=== PATIENT | female | born 1950 | race Caucasian/White ===

== ENCOUNTER 2016-08-04 10:11 | Emergency (ER) | payer MEDICARE, OTHER ==
[~2016-08-04 10:11] MED LIST: ACET-704 PO; ALBU1.25 NEB; ALBU2.5V14 NEB; ALBU6.7H IH; ALBU8.5H8 IH; ALPR0.5T PO; ASPI-612 PO; ASPI81TA44 PO; ATOR10TA PO; AZIT500T PO; AZIT500T2 PO; BENZ100C PO; BUTA1CAP29 PO; CEFP200T PO; CYCL-331 PO; DOCU-109 PO; EPIN0.3A8 IJ; FENT1PAT15 TD; FENT1PAT17 TD; FERR15DR4 PO; FLUC100T7 PO; FLUT1DIS IH; FURO-69 PO; FURO20TA3 PO; GABA-585 PO; GUAI600T28 PO; HYDR-2766 PO; HYDR-971 PO; IBUP800T19 PO; IPRA3AMP NEB; IPRA3AMP23 IH; IPRA4AER IH; IPRA4AER INH; LEVO750T5 PO; LINA145C PO; LISI-338 PO; LISI2.5T PO; LORA10TA68 PO; LOSA25TA PO; LURA40TA PO; LURA80TA PO; METO25TA2 PO; METO25TA4 PO; METO25TA9 PO; MONT10TA6 PO; MORP15TA PO; MORP15TA3 PO; NITR0.4T22 SL; NYST15PO9 TP; OLOP5DRO EACHEYE; OLOP5DRO OP; ONDA4TAB10 PO; OXYC-328 PO; OXYC30TA PO; PNV1TABL25 PO; PNV91TAB3 PO; POLY17PO5 PO; PRAZ2CAP2 PO; PRED20TA PO; PSYL1PAC7 PO; RISP1TAB43 PO; RIVA20TA2 PO; TOPI15CA4 PO; TRAM50TA PO; TRAZ150T49 PO; TRAZ50TA15 PO; TRIA10.8 NS; TRIA16.5 NS; VENL150C6 PO; VENL37.5 PO; VENL75CA6 PO; VENL75TA PO; VILA10TA PO; VILA20TA PO; WARF5TAB7 PO; XOPENEX1.25 MG/3 IH; ZOLP10TA PO; [UNRECOGNIZED DRUG - OTHER] INH; duoneb
[2016-08-04] MEDS ORDERED: DIAZ5TAB PO (10:57)
--- NOTE | 2016-08-04 11:07 | ED.ADGEN ---
Past History Past Medical History: Other Past Surgical History: Gastric Bypass Smoking: Non-smoker Alcohol Use: None Drug Use: None Adult General HPI HPI Patient is a 66-year-old woman, with history of chronic low back pain after an injury several years ago, who presents to the emergency department with a complaint of worsening pain in her lower back, radiating into her right leg. Patient states that symptoms are consistent with previous exacerbations of her chronic low back pain. She denies any weakness, numbness or tingling, any new injuries, any fevers or chills, any GI or complaints. No chest pain or shortness breath, no headache. Patient states that she was seen by her primary care provider last week as the pain isn't getting worse, she believes it is exacerbated by prolonged time spent recently in an uncomfortable hospital chair , while she was spending time with both her daughter's fianc and her daughter in the hospital, as her daughter recently delivered a child, and her daughter's fianc was being treated separately. Review of Systems Review of Systems Constitutional: Denies fever or chills [] Eyes: Denies change in visual acuity, redness, or eye pain [] HENT: Denies nasal congestion or sore throat [] Respiratory: Denies cough or shortness of breath [] Cardiovascular: No additional information not addressed in HPI [] GI: Denies abdominal pain, nausea, vomiting, bloody stools or diarrhea [] : Denies dysuria or hematuria [] Musculoskeletal: Low back pain, worse on the right side, radiating into the right lower extremity. Integument: Denies rash or skin lesions [] Neurologic: Denies headache, focal weakness or sensory changes [] Endocrine: Denies polyuria or polydipsia [] Current Medications Current Medications Current Medications Medications (Trade) Dose Ordered Sig/Lary Start Time Stop Time Status Last Admin Dose Admin Ciprofloxacin (Cipro) 500 mg 1X ONCE 08/04/16 11:45 08/04/16 11:46 Diazepam (Valium) 5 mg 1X ONCE 08/04/16 11:45 08/04/16 11:46 Allergies Allergies Allergies Coded Allergies Type Severity Reaction Last Updated Verified amoxicillin Allergy Severe Anaphylaxis 07/25/15 No bee venom (honey bee) Allergy Severe Shortness of Air 07/25/15 Yes tree nut Allergy Intermediate SLOVAK WALNUTS 5/18/16 Yes I S O L A T I O N *CONTACT* Allergy Unknown 08/30/15 Yes Physical Exam Physical Exam Constitutional: Well developed, well nourished, no acute distress, non-toxic appearance. [] HENT: Normocephalic, atraumatic, bilateral external ears normal, oropharynx moist, no oral exudates, nose normal. [] Eyes: PERRLA, EOMI, conjunctiva normal, no discharge. [] Neck: Normal range of motion, no tenderness, supple, no stridor. [] Cardiovascular:Heart rate regular rhythm, no murmur , S1, S2, rubs or gallops. [ ] Lungs & Thorax: Bilateral breath sounds clear to auscultation, no wheezing, rhonchi, rales. No chest tenderness or crepitus. [] Abdomen: Bowel sounds normal, soft, obese, no rebound, rigidity, no guarding, no tenderness, no masses, no pulsatile masses. [] Skin: Warm, dry, no erythema, no rash. [] Back: Patient with mild midline tenderness in the lumbar region, no step-offs or deformities appreciated, no signs of trauma, patient with significant tissue tension and muscle spasm noted in the right lumbar paraspinal muscles, no external lesions or other abnormalities identified, no CVA tenderness. [] Extremities: No tenderness, no cyanosis, no clubbing, ROM intact, no edema. [] Neurologic: Alert and oriented X 3, normal motor function, normal sensory function, no focal deficits noted. [] Psychologic: Affect normal, judgement normal, mood normal. [] Current Patient Data Vital Signs Vital Signs Date Time Temp Pulse Resp B/P (MAP) Pulse Ox O2 Delivery O2 Flow Rate FiO2 08/04/16 10:20 98.5 63 20 96 Room Air Lab Results Laboratory Tests Test 08/04/16 11:05 Urine Collection Type Unknown Urine Color Yellow Urine Clarity Hazy Urine pH 5.5 Urine Specific Cropsey 1.025 Urine Protein Neg (NEG-TRACE) Urine Glucose (UA) Neg mg/dL (NEG) Urine Ketones (Stick) Neg mg/dL (NEG) Urine Blood Neg (NEG) Urine Nitrite Neg (NEG) Urine Bilirubin Neg (NEG) Urine Urobilinogen Dipstick 0.2 mg/dL (0.2 mg/dL) Urine Leukocyte Esterase Small (NEG) Urine RBC 1-2 /HPF (0-2) Urine WBC >40 /HPF (0-4) Urine Squamous Epithelial Cells Few /LPF Urine Bacteria Mod /HPF (0-FEW) Urine Hyaline Casts Occ /HPF Urine Mucus Slight /LPF EKG EKG Not indicated. [] Radiology/Procedures Radiology/Procedures Not indicated. [] Course & Med Decision Making Course & Med Decision Making Pertinent Labs and Imaging studies reviewed. (See chart for details) Patient ambulating without difficulty, although complaining of pain in her right extremity, positive straight leg raise test in the emergency department, examination is consistent with paraspinal lumbar muscle spasm, with mild sciatica. No indications for imaging at this time, as patient has had no injuries, she did have an MRI performed on Thursday of last week. She will follow -up with her primary care provider tomorrow. Has been using naproxen, cyclobenzaprine, tramadol and Tylenol at home as prescribed by her primary care provider without pain relief. I did discuss use of Valium, offering patient is an IM injection or oral medication, as she states this is helped previously with similar symptoms, however the patient states she did drive here today, and does not have anyone who can pick her up. Discussed with patient, we'll be happy to write her prescription for Valium, 5 mg to be taken up to once every 8 hours for muscle spasm, as there are pharmacies are open today even though it is a holiday. Patient is agreeable with this plan. Urine results revealed greater than 40 WBCs, moderate bacteria, and a few epithelial cells. No nitrates. I discussed these findings with patient, while she initially denied urinary complaints, she states that she has just begun to notice a foul odor in her urine, and was treated about a month ago for urinary tract infection for similar presentation. After discussion of patient's history , and allergies, and review previous culture results, we'll treat with ciprofloxacin 500 mg twice a day for 3 days, patient is a poor to follow-up with her doctor tomorrow, and will be contacted if culture results require additional follow-up or if antibiotics can be discontinued. Patient is agreeable this plan. Additionally, she has stated that her daughter was picking her up from the emergency department, therefore she was ordered an IM injection of 5 mg of Valium, along with prescription as stated. Final Impression Final Impression [] Problems: Dragon Disclaimer Dragon Disclaimer This electronic medical record was generated, in whole or in part, using a voice recognition dictation system. Departure: Impression: Primary Impression: Chronic back pain Additional Impression: Urinary tract infection Disposition: 01 HOME, SELF-CARE Condition: IMPROVED Scripts Ciprofloxacin Hcl (CIPRO) 500 Mg Tablet 1 TAB PO BID, #5 TAB One tablet by mouth twice daily for 3 days to treat urinary tract infection. First dose given in the emergency department. Prov: CASSIA GUAN DO 08/04/16 Diazepam (VALIUM) 5 Mg Tablet 5 MG PO TID Y for MUSCLE SPASMS, #9 TAB One tablet by mouth up to once every 8 hours as needed for muscle spasm and pain. Caution with use of this medication as it may cause drowsiness. No driving or operating machinery while taking diazepam. Prov: CASSIA GUAN DO 08/04/16 CASSIA GUAN DO August 04, 2016 11:07
[2016-08-04 11:23] LABS: BILIRUBIN,URINE NEG (NEG); CLARITY,URINE HAZY; COLOR,URINE YELLOW; GLUCOSE,URINE NEG (NEG)
[2016-08-04 11:24] LABS: BACTERIA,URINE MOD /HPF (0-FEW); HYALINE CASTS, URINE OCC /HPF; NITRITE,URINE NEG (NEG); SQUAMOUS EPITHELIAL CELL,UR FEW /LPF; UROBILINOGEN,URINE 0.2 mg/dL (0.2 mg/dL); WBC,URINE >40 /HPF (0-4)
[2016-08-04] MEDS ORDERED: CIPR500T94 PO (11:35)
[2016-08-04] MEDS ORDERED: CIPROFLOXACIN HCL 500 MG TABLET PO ONE (11:45)
[2016-08-04 12:25] VITALS: BP 136/82
== END 2016-08-04 12:30 | disposition home or self-care (01) ==
LOC: ER 10:11
DX: G89.29 Other chronic pain (principal); M54.5 Low back pain; N39.0 Urinary tract infection, site not specified; Z88.1 Allergy status to other antibiotic agents; Z91.030 Bee allergy status; Z91.041 Radiographic dye allergy status; Z91.018 Allergy to other foods; Z98.84 Bariatric surgery status
CPT/HCPCS: 81001; 87086; 96372; 99284-25

== ENCOUNTER → 2016-08-22 | Outpatient (CLI) | payer MEDICARE, OTHER ==
[2016-08-04 12:25] VITALS: BP 136/82
[~2016-08-22] MED LIST changes: +CIPR500T94 PO; +DIAZ5TAB PO
[2016-08-22 10:25] LABS: ALBUMIN 3.4 g/dL (3.4-5.0); ALBUMIN/GLOBULIN RATIO 0.9 (1.0-1.7); CALCIUM 8.8 mg/dL (8.5-10.1); CREATININE 0.8 mg/dL (0.6-1.0); GFR 71.3; POTASSIUM 4.7 mmol/L (3.5-5.1); TOTAL BILIRUBIN 0.5 mg/dL (0.2-1.0)
== END | disposition home or self-care (01) ==
LOC: LAB 09:06
PROVIDERS: ATTEND Nurse Practitioner
DX: E78.5 Hyperlipidemia, unspecified (principal)
CPT/HCPCS: 36415; 80053; 80061

== ENCOUNTER → 2016-08-26 | Outpatient (CLI) | payer MEDICARE, OTHER ==
[2016-08-04 12:25] VITALS: BP 136/82
--- NOTE | 2016-08-26 09:20 | RAD ---
DATE: 08/26/2016 EXAM: MAMMO BRI SCREENING BILATERAL HISTORY: Routine screening COMPARISON: 08/21/2015 This study was interpreted with the benefit of Computerized Aided Detection (CAD). FINDINGS: Breast Density: SCATTERED The breast parenchyma shows scattered fibroglandular densities. Breast parenchyma level B. There are no dominant suspicious masses, suspicious microcalcifications or evidence of architectural distortion. Benign-appearing calcification is identified in the bilateral breasts. Bilateral breast nodules similar to prior exam probably intramammary lymph nodes or cysts. IMPRESSION: Benign findings BI-RADS CATEGORY: 2 BENIGN FINDING RECOMMENDED FOLLOW-UP: 12M 12 MONTH FOLLOW-UP PQRS compliance statement: Patient information was entered into a reminder system with a target due date 08/26/2017 for the next mammogram. Mammography is a sensitive method for finding small breast cancers, but it does not detect them all and is not a substitute for careful clinical examination. A negative mammogram does not negate a clinically suspicious finding and should not result in delay in biopsying a clinically suspicious abnormality. "Our facility is accredited by the [employer] Mammography Program."
== END | disposition home or self-care (01) ==
LOC: MAMMO 07:50
PROVIDERS: ATTEND Family Medicine
DX: Z12.31 Encounter for screening mammogram for malignant neoplasm of breast (principal)
CPT/HCPCS: 77063; G0202; 77067

== ENCOUNTER → 2016-10-23 | Outpatient (CLI) | payer MEDICARE, OTHER ==
[~2016-10-23] MED LIST changes: -GUAI600T28 PO; +GUAI600T79 PO
[2016-10-23 09:32] LABS: CALCIUM 8.5 mg/dL (8.5-10.1); CREATININE 0.7 mg/dL (0.6-1.0); GFR 83.2; MAGNESIUM 1.9 mg/dL (1.8-2.4); POTASSIUM 4.6 mmol/L (3.5-5.1)
== END | disposition home or self-care (01) ==
LOC: LAB 08:33
PROVIDERS: ATTEND Nurse Practitioner
DX: R00.2 Palpitations (principal)
CPT/HCPCS: 36415; 80048; 83735; 84443

== ENCOUNTER → 2017-04-30 | Outpatient (CLI) | payer MEDICARE, OTHER ==
[~2017-04-30] MED LIST changes: +METO-239 PO; -METO25TA9 PO; +WARF-31 PO; -WARF5TAB7 PO
[2017-04-30 09:34] LABS: ALBUMIN 3.1 g/dL (3.4-5.0); CALCIUM 8.4 mg/dL (8.5-10.1); CREATININE 0.6 mg/dL (0.6-1.0); GFR 99.1; POTASSIUM 3.7 mmol/L (3.5-5.1); TOTAL BILIRUBIN 0.4 mg/dL (0.2-1.0); TOTAL PROTEIN 6.2 g/dL (6.4-8.2)
== END | disposition home or self-care (01) ==
LOC: LAB 07:50
PROVIDERS: ATTEND Nurse Practitioner
DX: I11.0 Hypertensive heart disease with heart failure (principal); I50.32 Chronic diastolic (congestive) heart failure; E78.5 Hyperlipidemia, unspecified
CPT/HCPCS: 36415; 80053; 80061; 83880

== ENCOUNTER 2018-07-04 10:56 | Emergency (ER) | payer MEDICARE, OTHER ==
[~2018-07-04] VITALS: Ht 160 cm; Wt 94.1 kg
[~2018-07-04 10:56] MED LIST changes: +ALBU2.5V8 IH; -ALBU6.7H IH; -ALBU8.5H8 IH; -ASPI81TA44 PO; +ASPI81TA59 PO; +FERR15DR20 PO; -FERR15DR4 PO; -HYDR-2766 PO; +HYDR-2769 PO; +HYDR-3165 PO; -HYDR-971 PO; -IPRA3AMP NEB; +IPRA3AMP29 NEB; -OXYC-328 PO; +OXYC1TAB22 PO; +TRAZ-120 PO; -TRAZ50TA15 PO
[2018-07-04 11:15] VITALS: BP 156/80
--- NOTE | 2018-07-04 11:25 | PHYS DOC ---
Past History Past Medical History: Asthma, COPD, Diabetes, Hypertension, Other Past Surgical History: Gastric Bypass Additional Past Surgical Histo: Camelia-en-Y Smoking: Non-smoker Alcohol Use: None Drug Use: None Adult General Chief Complaint Chief Complaint: HAND PROBLEM HPI HPI Patient is a 68-year-old female presents with left hand forearm and elbow pain post mechanical trip and fall this morning at approximately 8:30. Patient fell on outstretched hand. No loss of consciousness. Patient reports her last tetanus vaccine was less than 5 years ago. Some tingling in her fingers since the injury happened pertinent. Increased pain with movement. No pain relief with her usual tramadol for her long-standing back and neck pain issues.[] Review of Systems Review of Systems Constitutional: Denies fever or chills [] Eyes: Denies change in visual acuity, redness, or eye pain [] HENT: Denies nasal congestion or sore throat [] Respiratory: Denies cough or shortness of breath [] Cardiovascular: No chest pain or palpitations[] GI: Denies abdominal pain, nausea, vomiting, bloody stools or diarrhea [] : Denies dysuria or hematuria [] Musculoskeletal: Denies back pain or joint pain [] Integument: Denies rash or skin lesions [] Neurologic: Denies headache, focal weakness or sensory changes [] Endocrine: Denies polyuria or polydipsia [] All other systems were reviewed and found to be within normal limits, except as documented in this note. Allergies Allergies Allergies Coded Allergies Type Severity Reaction Last Updated Verified amoxicillin Allergy Severe Anaphylaxis 07/25/15 No venom-honey bee Allergy Severe Shortness of Air 07/25/15 Yes tree nut Allergy Intermediate SAMI WALNUTS 07/25/15 Yes I S O L A T I O N *CONTACT* Allergy Unknown 08/30/15 Yes Physical Exam Physical Exam Constitutional: Well developed, well nourished, no acute distress, non-toxic appearance. [] HENT: Normocephalic, atraumatic, bilateral external ears normal, oropharynx moist, no oral exudates, nose normal. [] Eyes: PERRLA, EOMI, conjunctiva normal, no discharge. [] Neck: Normal range of motion, no tenderness, supple, no stridor. [] Cardiovascular:Heart rate regular rhythm, no murmur [] Lungs & Thorax: Bilateral breath sounds clear to auscultation [] Abdomen: Bowel sounds normal, soft, no tenderness, no masses, no pulsatile masses. [] Skin: Warm, dry, no erythema, no rash. [] Back: No tenderness, no CVA tenderness. [] Extremities: Tenderness diffusely in the left forearm and wrist. There is laceration on the palmar aspect between the thenar and hypothenar eminences of the left hand. Full active range of motion. Patient is distally neurovascularly intact. Full active range of motion at the elbow. There is tenderness over the proximal radius. A joint above and joined below the injury were evaluated and were normal. The other 3 extremities show: No tenderness, no cyanosis, no clubbing, ROM intact, no edema. [] Neurologic: Alert and oriented X 3, normal motor function, normal sensory function, no focal deficits noted. [] Psychologic: Affect normal, judgement normal, mood normal. [] EKG EKG [] Radiology/Procedures Radiology/Procedures PROCEDURE: FOREARM LEFT Left forearm radiographs History: Fall today, pain Comparison: None Findings: 2 views of the left forearm are submitted. There is suspected radial head fracture as mild cortical offset. There is some displacement of the anterior fat pad of the elbow. Impression 1. There is suspected radial head fracture as subtle cortical offset. PROCEDURE: ELBOW LEFT 3V Left elbow radiographs History: Fall today, pain Comparison: None Findings: 3 views of the left elbow are submitted. There is mild cortical offset of the radial head likely due to more recent fracture. Impression 1. There is mild cortical offset of the radial head suspicious for acute fracture. PROCEDURE: WRIST 3V LEFT Left wrist radiographs History: Fall today with left wrist pain Comparison: None available Findings: 3 views of the left wrist are submitted. No acute fracture is identified of the distal radius or ulna. Bone projecting posteriorly to the carpus on the lateral view is believed to be contiguous with adjacent bone rather than a fracture fragment. There is bone demineralization. Impression 1. No convincing acute fracture is identified by radiographs.[] Course & Med Decision Making Course & Med Decision Making Pertinent Labs and Imaging studies reviewed. (See chart for details) ED course: Patient arrived, was placed in bed, and tolerated exam well. He was transported to and from radiology with any complications. The wound was repaired, see laceration . No complications. After the return of the imaging studies, these were discussed with the patient who voiced understanding. Patient was placed in a splint. She was distally neurovascularly intact after splint placement. She was discharged in improved condition.[] Dragon Disclaimer Dragon Disclaimer This electronic medical record was generated, in whole or in part, using a voice recognition dictation system. Departure Departure: Impression: Primary Impression: Radial head fracture, closed Additional Impression: Skin tear of left hand without complication Disposition: HOME, SELF-CARE Condition: IMPROVED Referrals: SHARAD PADILLA MD (PCP) Follow-up in 2 days FANNY BUSH MD Call Thursday to set up an appointment to be seen this week Patient Instructions: Cast or Splint Care, Radial Head Fracture, Sterile Tape Wound Closure Additional Instructions: Keep the splint clean and dry. Call Dr. Stroud, orthopedic surgeon, tomorrow to arrange follow-up this next week. Follow-up with your regular doctor in 2 days for a wound check. Return to the ER if worsening pain or any other concerns. Scripts Hydrocodone Bit/Acetaminophen (NORCO 5-325 TABLET) 1 Each Tablet 1-2 TAB PO Q4-6HRS for severe pain, #20 TAB Prov: BHUPINDER RIVERA DO 07/04/18 Meloxicam (MELOXICAM) 7.5 Mg Tablet 7.5 MG PO DAILY for PAIN, #20 TAB Prov: BHUPINDER RIVERA DO 07/04/18 Laceration Repair Lac Repair Indication: Left palm skin tear [] Procedure: The patient was placed in the appropriate position and the cleansed. The laceration was was closed with mastisol, steri strips, and skin glue. The wound area was then dressed with a dressing]. Total repaired wound length: 3 cm. Other Items: [None The patient tolerated the procedure well Complications: [None]. Problem Qualifiers Primary Impression: Radial head fracture, closed Encounter type: initial encounter Fracture alignment: nondisplaced Laterality: left Qualified Codes: S52.125A - Nondisplaced fracture of head of left radius, initial encounter for closed fracture Additional Impression: Skin tear of left hand without complication Encounter type: initial encounter Qualified Codes: S61.412A - Laceration without foreign body of left hand, initial encounter BHUPINDER RIVERA DO Jul 04, 2018 11:25
--- NOTE | 2018-07-04 12:01 | RAD ---
Left forearm radiographs History: Fall today, pain Comparison: None Findings: 2 views of the left forearm are submitted. There is suspected radial head fracture as mild cortical offset. There is some displacement of the anterior fat pad of the elbow. Impression 1. There is suspected radial head fracture as subtle cortical offset.
[2018-07-04] MEDS ORDERED: HYDROcodone/APAP 5/325MG 1 TAB TABLET PO ONE (12:15)
[2018-07-04] MEDS ORDERED: IBUPROFEN 600 MG TABLET. PO ONE (12:15)
--- NOTE | 2018-07-04 12:25 | RAD ---
Left elbow radiographs History: Fall today, pain Comparison: None Findings: 3 views of the left elbow are submitted. There is mild cortical offset of the radial head likely due to more recent fracture. Impression 1. There is mild cortical offset of the radial head suspicious for acute fracture.
--- NOTE | 2018-07-04 12:27 | RAD ---
Left wrist radiographs History: Fall today with left wrist pain Comparison: None available Findings: 3 views of the left wrist are submitted. No acute fracture is identified of the distal radius or ulna. Bone projecting posteriorly to the carpus on the lateral view is believed to be contiguous with adjacent bone rather than a fracture fragment. There is bone demineralization. Impression 1. No convincing acute fracture is identified by radiographs.
[2018-07-04] MEDS ORDERED: HYDR-3165 PO (12:52)
[2018-07-04] MEDS ORDERED: MELO7.5T29 PO (12:52)
== END 2018-07-04 12:58 | disposition home or self-care (01) ==
LOC: ER 10:56
DX: S52.122A Displaced fracture of head of left radius, initial encounter for closed fracture (principal); S61.412A Laceration without foreign body of left hand, initial encounter; J44.9 Chronic obstructive pulmonary disease, unspecified; E11.9 Type 2 diabetes mellitus without complications; I10 Essential (primary) hypertension; Z98.84 Bariatric surgery status; Z88.1 Allergy status to other antibiotic agents; Z91.030 Bee allergy status; Z91.041 Radiographic dye allergy status; Z91.018 Allergy to other foods; W01.0XXA Fall on same level from slipping, tripping and stumbling without subsequent striking against object, initial encounter; Y93.89 Activity, other specified; Y92.89 Other specified places as the place of occurrence of the external cause; Y99.8 Other external cause status
CPT/HCPCS: 12002; 29125; 73080; 73090; 73110; 99284

== ENCOUNTER 2018-07-09 18:58 | Emergency (ER) | payer MEDICARE, OTHER ==
[~2018-07-09 18:58] MED LIST changes: +MELO7.5T29 PO
[2018-07-09 19:29] VITALS: BP 116/77
--- NOTE | 2018-07-09 20:22 | ED.ADGEN ---
Past History Past Medical History: Asthma, COPD, Diabetes, Hypertension, Other Past Surgical History: Cholecystectomy, Gastric Bypass, Hysterectomy, Tonsillectomy, Other Additional Past Surgical Histo: Camelia-en-Y Smoking: Non-smoker Alcohol Use: Occasionally Drug Use: None Adult General Chief Complaint Chief Complaint Left arm pain HPI HPI Patient is a [5-year-old female presents with left arm pain. History of forearm fracture with splint placement. Patient has not been wearing his sling reports tingling and swelling of fingers and hands. No motor weakness.[] Review of Systems Review of Systems Constitutional: Denies fever or chills [] Eyes: Denies change in visual acuity, redness, or eye pain [] HENT: Denies nasal congestion or sore throat [] Respiratory: Denies cough or shortness of breath [] Cardiovascular: No additional information not addressed in HPI [] GI: Denies abdominal pain, nausea, vomiting, bloody stools or diarrhea [] : Denies dysuria or hematuria [] Musculoskeletal: Denies back pain or joint pain [] Integument: Denies rash or skin lesions [] Neurologic: Denies headache, focal weakness or sensory changes [] Endocrine: Denies polyuria or polydipsia [] All other systems were reviewed and found to be within normal limits, except as documented in this note. Allergies Allergies Allergies Coded Allergies Type Severity Reaction Last Updated Verified amoxicillin Allergy Severe Anaphylaxis 07/04/18 No venom-honey bee Allergy Severe Shortness of Air 07/25/15 Yes tree nut Allergy Intermediate ARMENIAN WALNUTS 07/25/15 Yes I S O L A T I O N *CONTACT* Allergy Unknown 08/30/15 Yes Physical Exam Physical Exam Constitutional: Well developed, well nourished, no acute distress, non-toxic appearance. [] HENT: Normocephalic, atraumatic, bilateral external ears normal, oropharynx moist, no oral exudates, nose normal. [] Extremity: Left arm, splint in place, no motor weakness of fingers, minimal swelling noted. Good pulses present.[] Psychologic: Affect normal, judgement normal, mood normal. [] Current Patient Data Vital Signs Vital Signs Date Time Temp Pulse Resp B/P (MAP) Pulse Ox O2 Delivery O2 Flow Rate FiO2 07/09/18 19:29 97.8 75 18 96 Room Air EKG EKG [] Radiology/Procedures Radiology/Procedures [] Course & Med Decision Making Course & Med Decision Making Pertinent Labs and Imaging studies reviewed. (See chart for details) [Patient splint loosened and repositioned, with improvement of symptoms. Patient's fingers no longer tingling. Pain is improved. Patient placed in sling and instructed to follow-up with orthopedic surgery.] Final Impression Final Impression [#1 left arm pain and swelling and swelling] Dragon Disclaimer Dragon Disclaimer This electronic medical record was generated, in whole or in part, using a voice recognition dictation system. MARY JANE RAMÍREZ DO July 09, 2018 20:22
== END 2018-07-09 20:35 | disposition home or self-care (01) ==
LOC: ER 18:58
DX: M79.602 Pain in left arm (principal); R22.32 Localized swelling, mass and lump, left upper limb; J44.9 Chronic obstructive pulmonary disease, unspecified; E11.9 Type 2 diabetes mellitus without complications; I10 Essential (primary) hypertension; Z98.84 Bariatric surgery status; Z88.1 Allergy status to other antibiotic agents; Z91.030 Bee allergy status; Z91.041 Radiographic dye allergy status; Z91.018 Allergy to other foods
CPT/HCPCS: 99284

== ENCOUNTER 2018-11-11 10:16 | Inpatient (IN) | payer MEDICARE, OTHER ==
[~2018-11-11] VITALS: Ht 160 cm; Wt 93.9 kg
[~2018-11-11 10:16] MED LIST changes: -MONT10TA6 PO; +MONT10TA80 PO; +MORP-15 PO; -MORP15TA3 PO
[2018-11-11] MEDS ORDERED: NALOXONE 0.4 MG/ML VIAL. IV ONE (10:45)
--- NOTE | 2018-11-11 10:49 | PHYS DOC ---
Past History Past Medical History: Asthma, COPD, Diabetes, Hypertension, Other Past Surgical History: Cholecystectomy, Gastric Bypass, Hysterectomy, Tonsillectomy, Other Additional Past Surgical Histo: Camelia-en-Y Smoking: Non-smoker Alcohol Use: Occasionally Drug Use: None Adult General Chief Complaint Chief Complaint: WEAKNESS/GENERALIZED HPI HPI 68-year-old female presents with weakness and altered mental status. The patient got up this morning around 6 and took 2 tramadol pills for pain management. She was doing things around the house and getting things cleaned up when she sat down on her couch and doesn't remember much after that. She feels like she is extremely worn out and sleepy at this time. She did not fall to the ground. She denies chest pain, shortness of breath, dizziness, headache. She has been taking tramadol as well as other pain medications intermittently for chronic pain. This includes tramadol hydrocodone. She was seen by her physician yesterday and given additional narcotic pain medication in the office. The patient did take an Ambien last night but that was at 10 PM, 12 hours ago. Patient denies fever or chills. Review of Systems Review of Systems Constitutional: Fatigue. Denies fever or chills [] Eyes: Denies change in visual acuity, redness, or eye pain [] HENT: Denies nasal congestion or sore throat [] Respiratory: Denies cough or shortness of breath [] Cardiovascular: No additional information not addressed in HPI [] GI: Denies abdominal pain, nausea, vomiting, bloody stools or diarrhea [] : Denies dysuria or hematuria [] Musculoskeletal: Denies back pain or joint pain [] Integument: Denies rash or skin lesions [] Neurologic: Denies headache, focal weakness or sensory changes [] Endocrine: Denies polyuria or polydipsia [] All other systems were reviewed and found to be within normal limits, except as documented in this note. Allergies Allergies Allergies Coded Allergies Type Severity Reaction Last Updated Verified amoxicillin Allergy Severe Anaphylaxis 07/04/18 No venom-honey bee Allergy Severe Shortness of Air 07/25/15 Yes tree nut Allergy Intermediate GUAMANIAN WALNUTS 07/25/15 Yes I S O L A T I O N *CONTACT* Allergy Unknown 08/30/15 Yes Physical Exam Physical Exam Constitutional: Well developed, obese, well nourished, no acute distress, non- toxic appearance. Sleepy. [] HENT: Normocephalic, atraumatic, bilateral external ears normal, oropharynx moist, no oral exudates, nose normal. [] Eyes: PERRLA, EOMI, conjunctiva normal, no discharge. [] Neck: Normal range of motion, no tenderness, supple, no stridor. [] Cardiovascular:Heart rate regular rhythm, no murmur [] Lungs & Thorax: Bilateral breath sounds clear to auscultation [] Abdomen: Bowel sounds normal, soft, no tenderness, no masses, no pulsatile masses. [] Skin: Warm, dry, no erythema, no rash. [] Back: No tenderness, no CVA tenderness. [] Extremities: No tenderness, no cyanosis, no clubbing, ROM intact, no edema. [] Neurologic: Alert and oriented X 3, normal motor function, normal sensory function, no focal deficits noted. [] Psychologic: Affect normal, judgement normal, mood normal. [] Current Patient Data Vital Signs Vital Signs Date Time Temp Pulse Resp B/P (MAP) Pulse Ox O2 Delivery O2 Flow Rate FiO2 11/11/18 10:34 98.2 80 18 95 Room Air EKG EKG Sinus rhythm, rate 75, borderline axis, no ST elevations or depressions.[] Radiology/Procedures Radiology/Procedures [] Impressions: CT HEAD WO CONTRAST Indication: Altered mental status. Exposure: One or more of the following individualized dose reduction techniques were utilized for this examination: 1. Automated exposure control 2. Adjustment of the mA and/or kV according to patient size 3. Use of iterative reconstruction technique. Technique: Standard imaging without intravenous contrast. No evidence of acute intracranial hemorrhage, mass effect, midline shift or abnormal extra-axial fluid collection. Qiu-white matter distinction is intact. Ventricles and sulci are symmetric. Visualized sinuses are clear. No acute skull abnormality. The orbits appear unremarkable. No significant scalp swelling. IMPRESSION: No evidence of acute intracranial hemorrhage. Electronically signed by: Ariel Jenkins MD (11/11/2018 11:34 AM) [facility] DICTATED AND SIGNED BY: ARIEL JENKINS MD DATE: 11/11/18 1134 CC: MARY JANE GARCÍA DO; SHARAD PADILLA MD ~ CHEST AP ONLY History: Altered mental status. Weakness. COMPARISON: 04/07/2016 image without report FINDINGS: The heart size is not enlarged. No evidence of pneumothorax. No pleural effusion. No evidence of infiltrate. IMPRESSION: No evidence of consolidating infiltrate. Electronically signed by: Ariel Jenkins MD (11/11/2018 11:42 AM) [facility] DICTATED AND SIGNED BY: ARIEL JENKINS MD DATE: 11/11/18 1142 CC: MARY JANE GARCÍA DO; SHARAD PADILLA MD ~ Course & Med Decision Making Course & Med Decision Making Pertinent Labs and Imaging studies reviewed. (See chart for details) The patient appears to be very sleepy. She is easily arousable. She is completely alert and oriented. She answered all my questions without difficulty. She did continue to fall sleep. After period of time, the patient became much more alert and aware. She did not have complete memory of all of the events since sitting on her couch. She does remember EMS arriving her house. She does not remember arriving at the hospital. Her labs are unremarkable. Her urinalysis is significant for UTI. I will treat her with Rocephin in the ED. I discussed the patient with Dr. Robb and he has accepted the patient for admission. Blood cultures are pending. Lactic acid is negative. [] Dragon Disclaimer Dragon Disclaimer This electronic medical record was generated, in whole or in part, using a voice recognition dictation system. Departure Departure: Impression: Primary Impression: UTI (urinary tract infection) Additional Impression: Altered mental status Disposition: ADMITTED INPATIENT Admitting Physician: Kevin Robb Condition: STABLE Referrals: SHARAD PADILLA MD (PCP) Problem Qualifiers Primary Impression: UTI (urinary tract infection) Urinary tract infection type: acute cystitis Hematuria presence: with hematuria Qualified Codes: N30.01 - Acute cystitis with hematuria MARY JANE GARCÍA DO Nov 11, 2018 10:49
[2018-11-11 11:33] LABS: BASO # 0.1 x10^3/uL (0.0-0.2); BASO % 1 % (0-3); EOS # 0.2 x10^3/uL (0.0-0.7); EOS % 4 % (0-3); HEMOGLOBIN 12.5 g/dL (12.0-15.5); LYMPH # 1.3 x10^3/uL (1.0-4.8); LYMPH % 28 % (24-48); MEAN CORPUSCULAR HEMOGLOBIN 28 pg (25-35); MEAN CORPUSCULAR HGB CONC 32 g/dL (31-37); MEAN CORPUSCULAR VOLUME 88 fL (79-100); MONO # 0.4 x10^3/uL (0.0-1.1); MONO % 9 % (0-9); NEUT # 2.7 x10^3uL (1.8-7.7); NEUT % 58 % (31-73); PLATELET COUNT 229 x10^3/uL (140-400); RED BLOOD COUNT 4.44 x10^6/uL (3.50-5.40); RED CELL DISTRIBUTION WIDTH 15.7 % (11.5-14.5); WHITE BLOOD COUNT 4.7 x10^3/uL (4.0-11.0)
--- NOTE | 2018-11-11 11:37 | RAD ---
CT HEAD WO CONTRAST Indication: Altered mental status. Exposure: One or more of the following individualized dose reduction techniques were utilized for this examination: 1. Automated exposure control 2. Adjustment of the mA and/or kV according to patient size 3. Use of iterative reconstruction technique. Technique: Standard imaging without intravenous contrast. No evidence of acute intracranial hemorrhage, mass effect, midline shift or abnormal extra-axial fluid collection. Qiu-white matter distinction is intact. Ventricles and sulci are symmetric. Visualized sinuses are clear. No acute skull abnormality. The orbits appear unremarkable. No significant scalp swelling. IMPRESSION: No evidence of acute intracranial hemorrhage. Electronically signed by: Ariel Jenkins MD (11/11/2018 11:34 AM) [facility]
[2018-11-11 11:45] LABS: ALBUMIN 3.4 g/dL (3.4-5.0); CALCIUM 8.8 mg/dL (8.5-10.1); CREATININE 0.8 mg/dL (0.6-1.0); GFR 70.9; POTASSIUM 4.2 mmol/L (3.5-5.1); TOTAL BILIRUBIN 0.4 mg/dL (0.2-1.0); TOTAL PROTEIN 6.9 g/dL (6.4-8.2)
--- NOTE | 2018-11-11 11:45 | RAD ---
CHEST AP ONLY History: Altered mental status. Weakness. COMPARISON: 04/07/2016 image without report FINDINGS: The heart size is not enlarged. No evidence of pneumothorax. No pleural effusion. No evidence of infiltrate. IMPRESSION: No evidence of consolidating infiltrate. Electronically signed by: Ariel Jenkins MD (11/11/2018 11:42 AM) [facility]
[2018-11-11 12:25] LABS: AMPHETAMINE/METHAMPHETAMINE NEG (NEG); BARBITURATES NEG (NEG); BENZODIAZEPINES NEG (NEG); CANNABINOIDS NEG (NEG); COCAINE NEG (NEG); METHADONE NEG (NEG); OPIATES NEG (NEG); PHENCYCLIDINE NEG (NEG)
[2018-11-11 12:30] LABS: BILIRUBIN,URINE NEG (NEG); CLARITY,URINE HAZY; COLOR,URINE YELLOW; GLUCOSE,URINE NEG (NEG); NITRITE,URINE NEG (NEG); UROBILINOGEN,URINE 0.2 mg/dL (0.2 mg/dL)
[2018-11-11 12:31] LABS: BACTERIA,URINE MANY /HPF (0-FEW); SQUAMOUS EPITHELIAL CELL,UR FEW /LPF; WBC,URINE >40 /HPF (0-4)
[2018-11-11] MEDS ORDERED: cefTRIAXone SODIUM 1 GM VIAL ONE (12:43)
[2018-11-11] MEDS ORDERED: IV NORMAL SALINE 50ML 50 ML ONE (12:43)
--- NOTE | 2018-11-11 13:10 | EKG ---
[address] [address] Test Date: 2018-11-11 Test Time: 10:50:19 Pat Name: HIREN LOUIS Department: Room: Gender: F Experience Specialist: : [id number] Requested By: MARY JANE GARCÍA Order Number: [id number] Reading MD: Measurements Intervals [place] Rate: 75 P: 59 MT: 150 QRS: -13 QRSD: 72 T: 38 QT: 360 QTc: 404 Interpretive Statements SINUS RHYTHM LEFTWARD AXIS LOW LIMB LEAD VOLTAGE NO SPECIFIC ECG ABNORMALITIES RI6.01 No previous ECG available for comparison
[2018-11-11] MEDS ORDERED: ONDANSETRON PF 4 MG/2 ML VIAL. IV PRN (14:00)
[2018-11-11 16:15] VITALS: BP 157/72
[2018-11-11] MEDS ORDERED: ALBUTEROL SULFATE 2.5 MG/3 ML NEBU. IH PRN (16:45)
[2018-11-11 18:48] VITALS: BP 119/66
[2018-11-11] MEDS ORDERED: TRAM50TA PO (18:49)
[2018-11-11] MEDS ORDERED: TEMA15CA6 PO (18:50)
[2018-11-11] MEDS ORDERED: CARB15DR3 EACHEYE (18:51)
[2018-11-11] MEDS ORDERED: HYDR-2155 PO (18:52)
[2018-11-11] MEDS ORDERED: DICL100G18 TP (18:53)
[2018-11-11] MEDS ORDERED: IRON18TA PO (18:55)
[2018-11-11] MEDS ORDERED: GARL10002 PO (18:56)
[2018-11-11] MEDS ORDERED: POLYETHYLENE GLYCOL 3350 17 GM PACKET. PO PRN (21:15)
[2018-11-11] MEDS ORDERED: FUROSEMIDE 20 MG TABLET PO PRN (21:15)
[2018-11-11] MEDS ORDERED: HYDROcodone/APAP 5/325MG 1 TAB TABLET PO PRN (21:15)
[2018-11-11] MEDS ORDERED: traMADol 50 MG TABLET PO PRN (21:15)
[2018-11-11] MEDS ORDERED: NITROGLYCERIN SUBLINGUAL 0.4 MG BOTTLE OF 25. SL PRN (21:15)
[2018-11-11] MEDS: MONTELUKAST 10 MG TABLET. PO SCH (22:21)
[2018-11-11] MEDS: ATORVASTATIN CALCIUM 20 MG TABLET PO SCH (22:21)
[2018-11-11] MEDS: DICLOFENAC SODIUM 1% TOPICAL GEL 100GM TUBE. TP SCH (22:26)
[2018-11-11] MEDS: TEMAZEPAM 15 MG CAPSULE PO SCH (22:26)
[2018-11-11 22:27] VITALS: BP 117/69
[2018-11-11] MEDS: IPRATRPIUM/ALBUTEROL 0.5/2.5MG 3 ML NEBU. NEB PRN (22:44)
[2018-11-12] MEDS: IPRATRPIUM/ALBUTEROL 0.5/2.5MG 3 ML NEBU. NEB PRN (05:28)
[2018-11-12 05:36] VITALS: BP 107/61
[2018-11-12 06:14] LABS: BASO # 0.1 x10^3/uL (0.0-0.2); BASO % 1 % (0-3); EOS # 0.2 x10^3/uL (0.0-0.7); EOS % 4 % (0-3); HEMATOCRIT 36.6 % (36.0-47.0); HEMOGLOBIN 11.9 g/dL (12.0-15.5); LYMPH # 1.8 x10^3/uL (1.0-4.8); LYMPH % 37 % (24-48); MEAN CORPUSCULAR HEMOGLOBIN 29 pg (25-35); MEAN CORPUSCULAR HGB CONC 33 g/dL (31-37); MEAN CORPUSCULAR VOLUME 88 fL (79-100); MONO # 0.5 x10^3/uL (0.0-1.1); MONO % 10 % (0-9); NEUT # 2.5 x10^3uL (1.8-7.7); NEUT % 49 % (31-73); PLATELET COUNT 219 x10^3/uL (140-400); RED BLOOD COUNT 4.19 x10^6/uL (3.50-5.40); RED CELL DISTRIBUTION WIDTH 15.9 % (11.5-14.5)
[2018-11-12 06:24] LABS: ALBUMIN 3.1 g/dL (3.4-5.0); ALBUMIN/GLOBULIN RATIO 0.9 (1.0-1.7); CALCIUM 8.6 mg/dL (8.5-10.1); CREATININE 0.9 mg/dL (0.6-1.0); GFR 61.9; POTASSIUM 4.4 mmol/L (3.5-5.1); TOTAL BILIRUBIN 0.4 mg/dL (0.2-1.0); TOTAL PROTEIN 6.5 g/dL (6.4-8.2)
[2018-11-12] MEDS: LINACLOTIDE 145 MCG CAPSULE. PO SCH (08:13)
[2018-11-12] MEDS: ASPIRIN 81 MG TAB.CHEW PO SCH (09:39)
[2018-11-12] MEDS: CETIRIZINE HCL 10 MG TABLET PO SCH (09:39)
[2018-11-12] MEDS: DICLOFENAC SODIUM 1% TOPICAL GEL 100GM TUBE. TP SCH ×4 (09:40→20:26)
[2018-11-12 11:47] VITALS: BP 175/75
--- NOTE | 2018-11-12 13:20 | HP ---
ADMIT DATE: HISTORY OF PRESENT ILLNESS: The patient is a 68-year-old female patient, who presented to the Emergency Room with weakness and altered mental status. She apparently got up on the day of admission around 6:00 and took 2 tramadol pills for pain management. She was doing things around the household and getting things cleaned up when she sat down to eat her breakfast and apparently she spilled all her breakfast and herself, she was also incontinent of bowel and bladder. She was apparently brought to the Emergency Room. She apparently has total amnesia. From the day before, the patient apparently took also Ambien around 10:00 p.m. in the night before about 12 hours prior to the incident and by the time she arrived to the hospital, she was awake, alert, oriented in time, place and person without any obvious lateralizing sign. She was extensively investigated in the Emergency Room and her lab work showed that she has leukocyturia and moderate amount of leukocyte esterase and many bacteria in the urine and was admitted with diagnosis of altered mental status as well as urinary tract infection. PAST MEDICAL HISTORY: Significant for bronchial asthma, DVT, hypercholesterolemia, osteoarthritis, peripheral neuropathy, bipolar disorder, anxiety and depression as well as morbid obesity. PAST SURGICAL HISTORY: Significant for gastric bypass surgery, cholecystectomy, tonsillectomy, partial hysterectomy, ganglion resection, umbilical hernia repair and incisional hernia repair. ALLERGIES: She is allergic to GRASS AND POLLEN. She has no known drug allergies. FAMILY HISTORY: She has two brothers, both younger, one is known to have Crohn's disease and one has some form of bursitis. Biological father at the age of 70 from complications of diabetes and congestive heart failure. Mother at the age of 70 because of lung cancer. She has two daughters. SOCIAL HISTORY: She has never smoked. She drinks alcohol occasionally. No illicit drugs. MEDICATIONS: She is currently on following medications: She is on loratadine 10 mg once a day, ipratropium bromide, albuterol sulfate, DuoNeb 3 mL by nebulizer 4 times a day, albuterol sulfate 2 puffs every 4-6 hours, epinephrine for EpiPen as needed for bee stings. She is on iron 18 mg tablet every 3 days, atorvastatin calcium 20 mg at bedtime, nitroglycerin 0.4 mg sublingually every 5 minutes. She is on aspirin 81 mg once a day, diclofenac sodium 100 grams gel 1 gram 4 times a day. She is on hydrocodone/APAP 5/325 one tablet every 6 hours, tramadol 50 mg every 6 hours. She is on temazepam 15 mg at bedtime, furosemide 10 mg daily as needed, montelukast sodium for Singulair 10 mg at bedtime. She is on Refresh Optive eyedrops 1 drop to both eyes 4 times a day. She is on polyethylene glycol 17 grams daily p.r.n. for constipation. She is on Linzess 145 mcg daily and multivitamin 1 tablet once a day, garlic 1000 mg daily. REVIEW OF SYSTEMS: As per history of present illness. PHYSICAL EXAMINATION: GENERAL: On arrival to the Emergency Room, she apparently was awake, alert. By the time she arrived to the Emergency Room, she was pale, but no jaundice, cyanosis, or thyromegaly. No jugular venous distension. No limb edema. VITAL SIGNS: Her heart rate was 80, blood pressure 145/81, her temperature was 98.2, respiratory rate was 18 and oxygen saturation was 95%. HEAD, EYES, EARS, NOSE AND THROAT: Showed normocephalic, atraumatic. NECK: Supple. HEART: Showed normal first and second heart sounds. No gallop, rub or murmur. CHEST: Clear to auscultation. No crepitation or rhonchi. ABDOMEN: Distended, soft, nontender. NEUROLOGIC: She was awake, alert, responding appropriately. All cranial nerves intact. EXTREMITIES: She moves extremities without difficulty. She ambulates normally without assistance or assistive devices. LABORATORY DATA: Her lab work on arrival to the Emergency Room showed a white cell count of 4700, hemoglobin 12.5, hematocrit 39, MCV 88 and platelet count 229,000. Her chemistry showed a serum sodium of 143, potassium 4.2, chloride 108, bicarbonate 25, anion gap of 10, BUN 10, creatinine 0.8, estimated GFR was 71 mL per minute. Her glucose 104, calcium was 8.8. Total bilirubin, AST, ALT, alkaline phosphatase were normal. Total protein was 6.9, albumin was 3.4. Urinalysis showed the urine was yellow, hazy with a pH of 6.5, specific gravity 1.015. The urine was negative for protein, glucose, ketones, blood and nitrite. There is moderate amount of leukocyte esterase with 1-2 rbc's, more than 40 wbc's, too many bacteria. Her toxic screen was essentially negative. Her chest x-ray showed the heart size is not enlarged. No evidence of pneumothorax, pleural effusion or infiltrate. The CT scan of the head showed that there is no evidence of acute intracranial hemorrhage, mass effect, midline shift or abnormal extraaxial fluid collection. Qiu-white matter distinction is intact. Ventricles and sulci are symmetric. Visualized sinuses are clear. No acute skull abnormality. The orbits appear unremarkable. No significant scalp swelling. ASSESSMENT AND PLAN: The patient was admitted with altered mental status, questionable seizure. She lost consciousness and she was incontinent to bowel and bladder. She also was diagnosed with urinary tract infection, for which she was started on IV ceftriaxone. I will obviously consult Dr. Caal as she might have had a seizure specialist. She is taking tramadol if she is known to be epileptogenic. CRISTINA LONGO MD DR: REECE/christopher JOB#: [id number] / [id number]
[2018-11-12] MEDS: HYDROcodone/APAP 5/325MG 1 TAB TABLET PO PRN ×2 (15:16→20:24)
[2018-11-12 15:58] VITALS: BP 123/64
[2018-11-12 19:00] VITALS: BP 136/64
[2018-11-12] MEDS: LACTOBACILLUS RHAMNOSUS GG 1 CAPSULE. PO SCH (20:24)
[2018-11-12] MEDS: ATORVASTATIN CALCIUM 20 MG TABLET PO SCH (20:24)
[2018-11-12] MEDS: MONTELUKAST 10 MG TABLET. PO SCH (20:24)
[2018-11-12] MEDS: TEMAZEPAM 15 MG CAPSULE PO SCH (20:24)
[2018-11-12 23:00] VITALS: BP 107/63
--- NOTE | 2018-11-13 02:32 | PN ---
DATE: 11/12/2018 SUBJECTIVE: The patient was admitted yesterday with altered mental status, bowel and bladder incontinence. She was also found to have urinary tract infection for which she was started on IV ceftriaxone. When I saw her today, she was sitting at the edge of the bed comfortably in no apparent distress. She was awake, alert, responding appropriately. Denied any further episode of loss of consciousness. Denied any incontinence of bowel or bladder. She did not bite her tongue. PHYSICAL EXAMINATION: GENERAL: When I examined her, she was pale, but no jaundice, cyanosis or thyromegaly. No jugular venous distention. No limb edema. VITAL SIGNS: Her heart rate was 65, blood pressure was 175/75. Her temperature was 97.8, respiratory rate was 20, and oxygen saturation was 96%. HEAD, EYES, EARS, NOSE AND THROAT: Showed she is normocephalic, atraumatic. NECK: Supple. HEART: Showed normal first and second heart sounds. No gallop or murmur. CHEST: Clear to auscultation. No crepitation or rhonchi. ABDOMEN: Distended, soft, nontender. NEUROLOGIC: She was definitely more awake, alert, responding appropriately. All cranial nerves intact. She moves extremities without difficulty. She ambulates without assistance or assistive devices. Her intake and output were incompletely recorded. LABORATORY DATA: Her lab work this morning showed a white cell count of 5000, hemoglobin 11.9, hematocrit 36, MCV 88 and platelet count 219,000. Her chemistry showed a serum sodium 142, potassium 4.4, chloride 107, bicarbonate 25, anion gap of 10, BUN 11, creatinine 0.9, estimated GFR was 62 mL per minute. Her glucose was 146, calcium was 8.6. Total bilirubin, AST, ALT, alkaline phosphatase were normal. Total protein was 6.5, albumin 3.1. Her urine and blood were sent for culture and sensitivity. The results were still pending. ASSESSMENT: 1. Altered mental status, questionable seizure as she has retrograde amnesia and she was incontinent of bowel and bladder, although she did not bite her tongue. 2. Urinary tract infection for which she is on IV Rocephin. She has multiple other medical problems including bronchial asthma, history of deep vein thrombosis, hyperlipidemia, osteoarthritis and morbid obesity for which she underwent gastric bypass surgery. CRISTINA LONGO MD DR: Antonino JOB#: [id number] / [id number]
[2018-11-13 06:06] VITALS: BP 99/62
[2018-11-13 07:09] LABS: BASO % 0 % (0-3); EOS # 0.2 x10^3/uL (0.0-0.7); EOS % 5 % (0-3); HEMATOCRIT 36.6 % (36.0-47.0); HEMOGLOBIN 12.1 g/dL (12.0-15.5); LYMPH # 1.6 x10^3/uL (1.0-4.8); LYMPH % 36 % (24-48); MEAN CORPUSCULAR HEMOGLOBIN 29 pg (25-35); MEAN CORPUSCULAR HGB CONC 33 g/dL (31-37); MEAN CORPUSCULAR VOLUME 87 fL (79-100); MONO # 0.4 x10^3/uL (0.0-1.1); MONO % 8 % (0-9); NEUT # 2.4 x10^3uL (1.8-7.7); NEUT % 52 % (31-73); PLATELET COUNT 239 x10^3/uL (140-400); RED BLOOD COUNT 4.21 x10^6/uL (3.50-5.40); RED CELL DISTRIBUTION WIDTH 15.7 % (11.5-14.5); WHITE BLOOD COUNT 4.6 x10^3/uL (4.0-11.0)
[2018-11-13 07:25] LABS: ALBUMIN 3.2 g/dL (3.4-5.0); ALBUMIN/GLOBULIN RATIO 0.9 (1.0-1.7); CALCIUM 8.7 mg/dL (8.5-10.1); CREATININE 0.9 mg/dL (0.6-1.0); GFR 61.9; POTASSIUM 4.5 mmol/L (3.5-5.1); TOTAL BILIRUBIN 0.4 mg/dL (0.2-1.0); TOTAL PROTEIN 6.7 g/dL (6.4-8.2)
[2018-11-13] MEDS: LINACLOTIDE 145 MCG CAPSULE. PO SCH (07:31)
[2018-11-13] MEDS: LACTOBACILLUS RHAMNOSUS GG 1 CAPSULE. PO SCH ×2 (08:23→20:40)
[2018-11-13] MEDS: ASPIRIN 81 MG TAB.CHEW PO SCH (08:27)
[2018-11-13] MEDS: MELOXICAM 15 MG TABLET. PO SCH (08:27)
[2018-11-13] MEDS: CETIRIZINE HCL 10 MG TABLET PO SCH (08:28)
[2018-11-13] MEDS: DICLOFENAC SODIUM 1% TOPICAL GEL 100GM TUBE. TP SCH ×4 (08:31→20:41)
[2018-11-13] MEDS: HYDROcodone/APAP 5/325MG 1 TAB TABLET PO PRN ×2 (09:06→17:38)
[2018-11-13 11:24] VITALS: BP 179/75
[2018-11-13 15:24] VITALS: BP 122/70
[2018-11-13 18:33] VITALS: BP 126/59
[2018-11-13] MEDS: TEMAZEPAM 15 MG CAPSULE PO SCH (20:40)
[2018-11-13] MEDS: MONTELUKAST 10 MG TABLET. PO SCH (20:40)
[2018-11-13] MEDS: ATORVASTATIN CALCIUM 20 MG TABLET PO SCH (20:40)
[2018-11-13 23:00] VITALS: BP 95/57
[2018-11-14] MEDS: POLYETHYLENE GLYCOL 3350 17 GM PACKET. PO SCH ×2 (00:02→07:53)
--- NOTE | 2018-11-14 02:03 | CONS ---
DATE OF CONSULTATION: 11/12/2018 NEUROLOGIC CONSULTATION REFERRING PHYSICIAN: Dr. Robb. REASON FOR CONSULTATION: Rule out seizure versus syncope. HISTORY OF PRESENT ILLNESS: This is a 68-year-old right-handed female who has had longstanding history of lower back pain, has been in her usual state of health until the morning of day of admission when she woke up in the morning at 6:00, she took 2 pills of tramadol. When she was sitting to have her breakfast, she probably had a seizure. She spilled all her food. She was incontinent of urine and bladder. She was brought to Emergency Room when she was found to have amnesia from the night before. The duration of amnesia estimated about 12 hours before the incident. In the Emergency Room, the patient was alert and oriented. Apparently, blood workup revealed evidence of urinary tract infection. Initial non-enhanced head CT scan revealed no acute intracranial process. PAST MEDICAL HISTORY: Significant for chronic low back pain, obesity, hyperlipidemia, osteoarthritis, peripheral neuropathy, bipolar disorder, anxiety and depression. PAST SURGICAL HISTORY: Significant for gastric bypass, tonsillectomy, cholecystectomy, umbilical hernia repair, partial hysterectomy, and incisional hernia repair. SOCIAL HISTORY: The patient denies smoking, alcohol drinking, or illicit drug use. She is . FAMILY HISTORY: Positive for Crohn disease. Father from congestive heart failure and diabetes. Mother at the age of 70 from lung cancer. She has 2 daughters. CURRENT HOME MEDICATIONS: Loratadine, albuterol inhaler and nebulizer, Lipitor, nitroglycerin 0.4 mg sublingually p.r.n., hydrocodone/APAP q. 6 hours p.r.n., tramadol 50 mg q. 6 hours for pain, temazepam 15 mg at bedtime, furosemide, Singulair, Optive eyedrops, stool softener for constipation, multivitamins and supplements. ALLERGIES: GRASS AND POLLEN. No known drug allergies. REVIEW OF SYSTEMS: A 10-point review of system was performed as mentioned above in history of present illness; however, the patient denies headaches, visual disturbances, chest pain, shortness of breath or palpitations, dysarthria, dysphagia, weakness or paresthesia. PHYSICAL EXAMINATION: GENERAL: Well-developed, well-nourished female, not in acute distress. She weighs 93 kilos. VITAL SIGNS: Blood pressure 136/64, respiratory rate 18, pulse is 55, oxygen saturation is 97% on room air, temperature 98.7, respiratory rate 18. HEENT: Normocephalic, atraumatic, otherwise unremarkable. NECK: Supple. Negative for carotid bruit, lymphadenopathy or thyromegaly. LUNGS: Clear to A and P. CARDIOVASCULAR: Regular rate and rhythm, normal S1, S2. There is no S3, S4 or murmur. ABDOMEN: Soft. Bowel sounds positive. EXTREMITIES: Negative for cyanosis, clubbing or pitting edema. NEUROLOGICAL EXAMINATION: 1. Mental Status: The patient is alert and oriented x 3. Speech is fluent. There is no language dysfunction. Memory, judgment, and abstract thinking are normal. The patient denies hallucination or delusion. 2. CRANIAL NERVES: Visual sharp are full. The pupils are reactive to light and accommodation. The extraocular movements are intact. There is no nystagmus. There is no facial motor or sensory deficit. Hearing is intact bilaterally. The palate is elevated symmetrically. Sternocleidomastoid muscles are powerful bilaterally. The patient shrugs her shoulders symmetrically, protrudes her tongue in the midline without fasciculation or atrophy. 3. MOTOR: No focal muscle bulk was seen. The tone is normal. The strength is 5/5 throughout. 4. Sensory examination revealed diminished pinprick and light touch senses in patchy distributions in distal lower extremities. Deep tendon reflexes were asymmetric and hypoactive with absent Achilles responses. Gait: The stance is steady. Coordination is normal. The gait is normal. LABORATORY DATA: CBC revealed white blood cells of 5000, hemoglobin 11.9, hematocrit 36.6, platelet count 219,000. Chemistry revealed sodium of 142, potassium 4.4, chloride 107, CO2 25, BUN 11, creatinine 0.9, glucose is 146, calcium 8.6. Liver enzymes not elevated. Urinalysis revealed urinary tract infections with moderate urinary leukocyte esterase and white blood cells of more than 40. Urine drug screen is negative. IMPRESSION: 1. Possible seizure followed by amnesia, no evidence of transient ischemic attack or stroke symptoms. 2. Urinary tract infections may have contributed to the current symptoms. 3. Longstanding low back pain, possible radiculopathy or peripheral neuropathy, required tramadol, which possibly contributed to the seizure. 4. Multiple medical problems include bipolar disorder, anxiety, depressions, recurrent urinary tract infections, hyperlipidemia and deep venous thrombosis. RECOMMENDATIONS: 1. We will discontinue tramadol and add meloxicam 15 mg daily for pain. 2. Continue with current management initiated by Dr. Robb. 3. We will arrange for electroencephalogram on an outpatient basis. M Radha AKHTAR MD DR: SHAHZAD/christopher JOB#: [id number] / [id number]
--- NOTE | 2018-11-14 03:00 | PN ---
DATE: 11/13/2018 SUBJECTIVE: The patient is sitting on the edge of the bed comfortably in no apparent distress. She has had no further episodes of loss of consciousness. No bowel or bladder incontinence. PHYSICAL EXAMINATION: GENERAL: When I examined her, she looked well, slightly pale. No jaundice, cyanosis or thyromegaly. No jugular venous distention. No lower limb edema. VITAL SIGNS: Her heart rate was 55, blood pressure was 99/62, temperature was 97, respiratory rate was 16, and oxygen saturation was 95% on room air. The rest of clinical examination is stable. Her intake was 1570, no output was recorded. LABORATORY DATA: Her lab work this morning showed a white cell count 4600, hemoglobin 12, hematocrit 36, MCV 87, platelet count 239,000. Her chemistry showed a serum sodium 139, potassium 4.5, chloride 105, bicarbonate 26, anion gap of 8, BUN 15, creatinine 0.9, estimated GFR was 62 mL per minute. Her glucose 107, calcium was 8.7. Total bilirubin, AST, ALT, alkaline phosphatase were normal. Total protein was 6.7, albumin 3.2. So far, her blood culture is negative. Urine culture is still pending at the time of this dictation. ASSESSMENT: 1. Altered mental status with questionable seizure. She has retrograde amnesia and was incontinent of bowel and bladder, although she did not bite her tongue. 2. Urinary tract infection for which she is on IV Rocephin. 3. She has multiple other medical problems including: A. Bronchial asthma. B. History of deep vein thrombosis. C. Hyperlipidemia. D. Generalized osteoarthritis. E. Morbid obesity for which she underwent gastric bypass surgery. PLAN: She apparently was seen by Dr. Caal who recommended discontinuation of her tramadol as a likely cause of her seizure. Meanwhile, we will continue with IV antibiotic. CRISTINA LONGO MD DR: REECE/christopher JOB#: [id number] / [id number]
--- NOTE | 2018-11-14 03:34 | PN ---
DATE: SUBJECTIVE: The patient denies any new medical or neurological complaints. OBJECTIVE: GENERAL: Well-developed, well-nourished female, not in acute distress. VITAL SIGNS: Blood pressure 179/75, respiratory rate 20, pulse is 70, temperature 98, oxygen saturation 97% on room air. HEENT: Normocephalic, atraumatic, otherwise unremarkable. NECK: Supple. Negative for carotid bruit, lymphadenopathy or thyromegaly. LUNGS: Clear to A and P. CARDIOVASCULAR: Regular rhythm, normal S1, S2. There is no S3, S4 or murmurs. ABDOMEN: Soft. Bowel sounds positive. EXTREMITIES: Negative for cyanosis, clubbing or pitting edema. NEUROLOGICAL EXAM: Normal mental status and intact cranial nerves. There is no evidence of focal motor or sensory deficit. Deep tendon reflexes were symmetric and hypoactive with absent Achilles responses. Gait and coordination are normal. LABORATORY DATA: CBC revealed white blood cells of 4600, hemoglobin 12.1, hematocrit 36, platelet count 239,000. Chemistry revealed sodium of 139, potassium 4.5, chloride 105, CO2 of 26, BUN 15, creatinine 0.9, glucose 107, calcium 8.7. IMPRESSION: 1. Possibly new onset of seizure, there is no evidence of TIA or stroke. 2. Urinary tract infections. 3. Multiple medical problems include hypertension, hyperlipidemia, peripheral neuropathy, bipolar disorder with anxiety and osteoarthritis. RECOMMENDATIONS: Continue with current management initiated by Dr. Robb. We will arrange for EEG on an outpatient basis. The patient is neurologically stable. M Radha AKHTAR MD DR: SHAHZAD/christopher JOB#: [id number] / [id number]
[2018-11-14 06:07] VITALS: BP 141/74
[2018-11-14 07:19] LABS: CALCIUM 8.5 mg/dL (8.5-10.1); CREATININE 0.8 mg/dL (0.6-1.0); GFR 70.9; POTASSIUM 4.9 mmol/L (3.5-5.1)
[2018-11-14] MEDS: LINACLOTIDE 145 MCG CAPSULE. PO SCH (07:27)
[2018-11-14] MEDS: CETIRIZINE HCL 10 MG TABLET PO SCH (07:48)
[2018-11-14] MEDS: LACTOBACILLUS RHAMNOSUS GG 1 CAPSULE. PO SCH (07:48)
[2018-11-14] MEDS: ASPIRIN 81 MG TAB.CHEW PO SCH (07:48)
[2018-11-14] MEDS: MELOXICAM 15 MG TABLET. PO SCH (07:48)
[2018-11-14] MEDS: DICLOFENAC SODIUM 1% TOPICAL GEL 100GM TUBE. TP SCH ×2 (07:49→13:00)
[2018-11-14] MEDS: HYDROcodone/APAP 5/325MG 1 TAB TABLET PO PRN (10:53)
[2018-11-14 10:56] VITALS: BP 153/80
[2018-11-14] MEDS ORDERED: CEFD300C PO (11:27)
[2018-11-14] MEDS ORDERED: MELO15TA23 PO (11:27)
--- NOTE | 2018-11-14 16:58 | DS ---
DATE OF DISCHARGE: 11/14/2018 HOSPITAL COURSE: The patient is a 68-year-old female patient, who came with altered mental status, possible new onset of seizures. There is no evidence of TIA or stroke, urinary tract infection. She was treated with IV ceftriaxone and was seen by Dr. Caal who recommended doing an outpatient EEG and discontinued her tramadol as a possible cause of her seizure. Her urine culture has grown more than 100,000 colony forming units per mL of Gram-negative rods identified as Escherichia coli sensitive to all cephalosporins, and therefore, the patient was discharged home to continue on cefdinir 300 mg twice a day. PHYSICAL EXAMINATION: GENERAL: When I saw her today, she looked well and was clearly in no apparent respiratory distress. Pale, but no jaundice, cyanosis, or thyromegaly. No jugular venous distention. No limb edema. VITAL SIGNS: Her heart rate was 72, blood pressure was 158-153/80, temperature was 97.6, respiratory rate 20, and oxygen saturation was 96%. The rest of clinical exam stable, has not really changed. LABORATORY DATA: Her lab work this morning showed white cell count 4600, hemoglobin 12, hematocrit 36, MCV 87, and platelet count 239,000. Serum sodium 138, potassium 4.9, chloride 106, bicarbonate 20, anion gap of 12, BUN of 18, creatinine 0.8, estimated GFR was 71 mL per minute. Her glucose 113, calcium was 8.5. Urine culture showed growth of more than 100,000 colony forming units per mL of Escherichia coli sensitive to all cephalosporins. DISCHARGE MEDICATIONS: She was discharged home to continue on cefdinir 300 mg twice a day for 5 more days, meloxicam 15 mg daily with food. Continue with albuterol sulfate 2 puffs every 4-6 hours, aspirin 81 mg once a day, atorvastatin, calcium 20 mg at bedtime, Refresh Optive eyedrops 1 drop to both eyes 4 times a day, diclofenac sodium for Voltaren gel 4 times a day, EpiPen as needed, furosemide 10 mg daily, garlic 1000 mg capsules once a day, hydrocodone/APAP 5/325 one tablet every 6 hours, ipratropium bromide and albuterol sulfate by nebulizer 4 times a day, iron 18 mg once a day, linaclotide for Linzess 145 mcg daily, loratadine 10 mg once a day, montelukast or Singulair 10 mg at bedtime, nitroglycerin 0.4 mg sublingually as needed, polyethylene glycol 17 grams daily, temazepam for Restoril 15 mg, and should discontinue her tramadol. FINAL DISCHARGE DIAGNOSES: 1. Urinary tract infection with growth of more than 100,000 colony forming units per mL of Escherichia coli sensitive to cephalosporins. 2. Other medical problems include altered mental status and questionable seizure. She has retrograde amnesia with incontinent of bowel and bladder, although she did not bite her tongue. 3. She has multiple other medical problems including: A. Bronchial asthma. B. History of deep vein thrombosis. C. Hyperlipidemia. D. Generalized osteoarthritis. E. Morbid obesity for which she underwent gastric bypass surgery. CRISTINA LONGO MD DR: REECE/christopher JOB#: [id number] / [id number]
--- NOTE | 2018-11-14 23:35 | PN ---
DATE: SUBJECTIVE: The patient denies any new medical or neurological complaints. She has not had any recurrent seizure-like activities since admission. OBJECTIVE: GENERAL: Well-developed, well-nourished female, not in acute distress. VITAL SIGNS: Blood pressure 143/80, respiratory rate 20, pulse is 72, temperature 97.6, oxygen saturation 96% on room air. HEENT: Normocephalic, atraumatic, otherwise unremarkable. NECK: Supple. Negative for carotid bruit, lymphadenopathy or thyromegaly. LUNGS: Clear to A and P. CARDIOVASCULAR: Regular rhythm, normal S1, S2. ABDOMEN: Soft. Bowel sounds positive. EXTREMITIES: Negative for cyanosis, clubbing or pitting edema. NEUROLOGICAL EXAM: Normal mental status and intact cranial nerves. There is no focal motor or sensory deficit. Deep tendon reflexes were asymmetric and hypoactive with absent Achilles responses. Gait and coordination are normal. IMPRESSION: 1. Possible new onset of seizure. No evidence of transient ischemic attack or stroke. 2. Urinary tract infections. 3. Multiple medical problems include hypertension, hyperlipidemia, peripheral neuropathy, bipolar disorder, anxiety and osteoarthritis. RECOMMENDATION: Continue with current management initiated by Dr. Robb. M Radha AKHTAR MD DR: SHAHZAD/christopher JOB#: [id number] / [id number]
== END 2018-11-14 15:38 | disposition home or self-care (01) | DRG 690 ==
LOC: ER 10:16 → 1 SOUTH 15:36
PROVIDERS: ADMIT Internal Medicine; ATTEND Internal Medicine
DX: N39.0 Urinary tract infection, site not specified (principal); I10 Essential (primary) hypertension; B96.20 Unspecified Escherichia coli [E. coli] as the cause of diseases classified elsewhere; E11.9 Type 2 diabetes mellitus without complications; E66.01 Morbid (severe) obesity due to excess calories; E78.00 Pure hypercholesterolemia, unspecified; E78.5 Hyperlipidemia, unspecified; F31.9 Bipolar disorder, unspecified; F41.9 Anxiety disorder, unspecified; G62.9 Polyneuropathy, unspecified; G89.29 Other chronic pain; J44.9 Chronic obstructive pulmonary disease, unspecified; M15.9 Polyosteoarthritis, unspecified; Z80.1 Family history of malignant neoplasm of trachea, bronchus and lung; Z82.49 Family history of ischemic heart disease and other diseases of the circulatory system; Z83.3 Family history of diabetes mellitus; Z86.718 Personal history of other venous thrombosis and embolism; Z68.36 Body mass index [BMI] 36.0-36.9, adult; Z87.440 Personal history of urinary (tract) infections; Z90.711 Acquired absence of uterus with remaining cervical stump; Z98.84 Bariatric surgery status; Z88.8 Allergy status to other drugs, medicaments and biological substances; Z88.1 Allergy status to other antibiotic agents; Z91.018 Allergy to other foods; Z90.710 Acquired absence of both cervix and uterus; E66.9 Obesity, unspecified
CPT/HCPCS: 36415; 70450; 71045; 80048; 80053; 80307; 81001; 82947; 83605; 84484; 85025; 87040; 87086; 87186; 93005; 96365; 96375; J0696; J2310; J7620; 99285-25

== ENCOUNTER 2018-11-23 12:43 | Emergency (ER) | payer MEDICARE, OTHER ==
[~2018-11-23] VITALS: Ht 160 cm; Wt 96.0 kg
[~2018-11-23 12:43] MED LIST changes: +CARB15DR3 EACHEYE; +CEFD300C PO; +DICL100G18 TP; +GARL10002 PO; +HYDR-2155 PO; +IRON18TA PO; +MELO15TA23 PO; +TEMA15CA6 PO
[2018-11-23] MEDS ORDERED: methylPREDNISolone SOD SUCC PF 125 MG/2 ML VIAL. IV ONE (13:30)
--- NOTE | 2018-11-23 13:36 | PHYS DOC ---
Past History Past Medical History: Asthma, COPD, Diabetes, Hypertension, Other Past Surgical History: Cholecystectomy, Gastric Bypass, Hysterectomy, Tonsillectomy, Other Additional Past Surgical Histo: Camelia-en-Y Smoking: Non-smoker Alcohol Use: Occasionally Drug Use: None Adult General Chief Complaint Chief Complaint: SKIN RASH/ABSCESS HPI HPI 68-year-old female presents with rash. The patient noticed a rash on her right lower extremity 2 days ago. Yesterday, the patient noticed the rash spread all over her bilateral lower extremities. It is pruritic and erythematous. Patient denies any new exposures. She has not been outside. No plant exposures. The patient is concerned about infection. She denies fever or chills. He has not had a rash like this in the past. She does not believe she was bitten by insects. Review of Systems Review of Systems Constitutional: Denies fever or chills [] Eyes: Denies change in visual acuity, redness, or eye pain [] HENT: Denies nasal congestion or sore throat [] Respiratory: Denies cough or shortness of breath [] Cardiovascular: No additional information not addressed in HPI [] GI: Denies abdominal pain, nausea, vomiting, bloody stools or diarrhea [] : Denies dysuria or hematuria [] Musculoskeletal: Denies back pain or joint pain [] Integument: Rash[] Neurologic: Denies headache, focal weakness or sensory changes [] Endocrine: Denies polyuria or polydipsia [] All other systems were reviewed and found to be within normal limits, except as documented in this note. Current Medications Current Medications Current Medications Medications (Trade) Dose Ordered Sig/Lary Start Time Stop Time Status Last Admin Dose Admin Ceftriaxone Sodium 1 gm/ Sodium Chloride 50 ml @ 100 mls/hr 1X ONCE 11/23/18 13:30 11/23/18 13:59 UNV Methylprednisolone Sodium Succinate (SOLU-Medrol 125MG VIAL) 125 mg 1X ONCE 11/23/18 13:30 11/23/18 13:31 UNV Allergies Allergies Allergies Coded Allergies Type Severity Reaction Last Updated Verified amoxicillin Allergy Severe Anaphylaxis 07/04/18 No venom-honey bee Allergy Severe Shortness of Air 07/25/15 Yes tree nut Allergy Intermediate CAMBODIAN WALNUTS 07/25/15 Yes I S O L A T I O N *CONTACT* Allergy Unknown 6/23/16 Yes Physical Exam Physical Exam Constitutional: Well developed, well nourished, no acute distress, non-toxic appearance. [] HENT: Normocephalic, atraumatic, bilateral external ears normal, oropharynx moist, no oral exudates, nose normal. [] Eyes: PERRLA, EOMI, conjunctiva normal, no discharge. [] Neck: Normal range of motion, no tenderness, supple, no stridor. [] Cardiovascular:Heart rate regular rhythm, no murmur [] Lungs & Thorax: Bilateral breath sounds clear to auscultation [] Abdomen: Bowel sounds normal, soft, no tenderness, no masses, no pulsatile masses. [] Skin: Erythematous, hot patches on the bilateral lower extremities, some with pu rpleish center. No palpable abscess.[] Back: No tenderness, no CVA tenderness. [] Extremities: No tenderness, no cyanosis, no clubbing, ROM intact, no edema. [] Neurologic: Alert and oriented X 3, normal motor function, normal sensory function, no focal deficits noted. [] Psychologic: Affect normal, judgement normal, mood normal. [] EKG EKG [] Radiology/Procedures Radiology/Procedures [] Course & Med Decision Making Course & Med Decision Making Pertinent Labs and Imaging studies reviewed. (See chart for details) The patient's rash is concerning for cellulitis. They appear to started his insect bites, but not certain. I have given her 125 of Solu-Medrol IV as well as 1 g of Rocephin IV. Her labs are unremarkable. I believe it is reasonable to attempt antibiotics at home. If her condition continues to worsen instead of improve, she may need to come back to the hospital for IV antibiotics. The patient states verbal understanding. I will discharge her on Keflex for 7 days as well as a 7 day prednisone taper for the pruritis. She is stable for discharge at this time. [] Dragon Disclaimer Dragon Disclaimer This electronic medical record was generated, in whole or in part, using a voice recognition dictation system. Departure Departure: Impression: Primary Impression: Cellulitis, leg Disposition: HOME, SELF-CARE Condition: STABLE Referrals: SHARAD PADILLA MD (PCP) Patient Instructions: Cellulitis, Ngew-ow-Vhns Scripts Prednisone (PREDNISONE) 10 Mg Tablet 10 MG PO UD for PREDNISONE TAPER, #20 TAB 0 Refills Take 4 tablets by mouth daily for 2 days, then take 3 tablets by mouth daily for 2 days, then take 2 tablet by mouth daily for 2 days, then take 1 tablet by mouth daily for 2 days, then stop. Prov: MARY JANE GARCÍA DO 11/23/18 Cephalexin (KEFLEX) 500 Mg Capsule 1 CAP PO TID for cellulitis for 7 Days, #21 CAP Prov: MARY JANE GARCÍA DO 11/23/18 Problem Qualifiers Primary Impression: Cellulitis, leg Laterality: right Qualified Codes: L03.115 - Cellulitis of right lower limb MARY JANE GARCÍA DO Nov 23, 2018 13:36
[2018-11-23 14:09] LABS: BASO # 0.1 x10^3/uL (0.0-0.2); BASO % 1 % (0-3); EOS # 0.4 x10^3/uL (0.0-0.7); EOS % 5 % (0-3); HEMATOCRIT 39.1 % (36.0-47.0); HEMOGLOBIN 12.9 g/dL (12.0-15.5); LYMPH # 2.3 x10^3/uL (1.0-4.8); LYMPH % 26 % (24-48); MEAN CORPUSCULAR HEMOGLOBIN 29 pg (25-35); MEAN CORPUSCULAR HGB CONC 33 g/dL (31-37); MEAN CORPUSCULAR VOLUME 88 fL (79-100); MONO # 0.8 x10^3/uL (0.0-1.1); MONO % 9 % (0-9); NEUT # 5.4 x10^3uL (1.8-7.7); NEUT % 60 % (31-73); PLATELET COUNT 187 x10^3/uL (140-400); RED BLOOD COUNT 4.47 x10^6/uL (3.50-5.40); RED CELL DISTRIBUTION WIDTH 15.9 % (11.5-14.5); WHITE BLOOD COUNT 9.1 x10^3/uL (4.0-11.0)
[2018-11-23 14:14] LABS: ALBUMIN 3.6 g/dL (3.4-5.0); ALBUMIN/GLOBULIN RATIO 0.9 (1.0-1.7); CALCIUM 9.1 mg/dL (8.5-10.1); CREATININE 0.8 mg/dL (0.6-1.0); GFR 70.9; POTASSIUM 4.6 mmol/L (3.5-5.1); TOTAL BILIRUBIN 0.4 mg/dL (0.2-1.0); TOTAL PROTEIN 7.4 g/dL (6.4-8.2)
[2018-11-23] MEDS ORDERED: CEPH-264 PO (14:32)
[2018-11-23] MEDS ORDERED: PRED-220 PO (14:32)
[2018-11-23] MEDS ORDERED: cefTRIAXone IM 1 GM VIAL IM ONE ×2 (14:45→15:00)
[2018-11-23] MEDS ORDERED: methylPREDNISolone SOD SUCC PF 125 MG/2 ML VIAL. ONE (14:45)
[2018-11-23] MEDS ORDERED: FLUCONAZOLE 100 MG TABLET. PO ONE (14:45)
[2018-11-23] MEDS ORDERED: methylPREDNISolone SOD SUCC PF 125 MG/2 ML VIAL. IM ONE (15:00)
[2018-11-23 15:03] LABS: PLT ESTIMATE DECREASED (ADEQUATE)
[2018-11-23 15:05] VITALS: BP 155/83
== END 2018-11-23 15:05 | disposition home or self-care (01) ==
LOC: ER 12:43
DX: L03.115 Cellulitis of right lower limb (principal); J44.9 Chronic obstructive pulmonary disease, unspecified; E11.9 Type 2 diabetes mellitus without complications; I10 Essential (primary) hypertension; Z98.84 Bariatric surgery status; Z88.1 Allergy status to other antibiotic agents; Z91.030 Bee allergy status; Z91.041 Radiographic dye allergy status; Z91.018 Allergy to other foods
CPT/HCPCS: 36415; 80053; 85025; 96372; 99284; J0696; J2930

== ENCOUNTER 2018-11-25 00:08 | Emergency (ER) | payer MEDICARE, OTHER ==
[~2018-11-25] VITALS: Ht 160 cm; Wt 96.0 kg
[~2018-11-25 00:08] MED LIST changes: +CEPH-264 PO; +PRED-220 PO
--- NOTE | 2018-11-25 00:12 | ED.ADGEN ---
Past History Past Medical History: Asthma, COPD, Diabetes, Hypertension, Other Past Surgical History: Cholecystectomy, Gastric Bypass, Hysterectomy, Tonsillectomy, Other Additional Past Surgical Histo: Camelia-en-Y Smoking: Non-smoker Alcohol Use: Occasionally Drug Use: None Adult General Chief Complaint Chief Complaint ".. I was stepping over the baby gate.. and caught ..my foot. and I went down hard on my Right shoulder.. and hit my head hard into wall... I actually made a hole in the wall.... Did not pass out or black out... but I know .. I messed up stuff..in this Rt. shoulder..." HPI HPI Patient is a 68 year old female who presents with above hx , complaints of Rt shoulder pain and head injury. Patient has a large hematoma to right fore head and praveen orbital. Does have vision in right eye. Patient denies any acute changes and right eye vision. . Patient does have a history of intraocular problem which was due for surgery at [facility]. Patient denies any double vision. Patient denies any epistaxis. Does have some paracervical tenderness. Patient's primary complaint is right shoulder pain. Does have deltoid sensation, but has obvious dislocation or fracture of right shoulder. Distal neurovascular intact. Patient is right-hand dominant. Patient has history of asthma, hypertension, diabetes, elevated cholesterol, COPD, history of morbid obesity txed status post Rux-en-y and recent diagnosis of leg cellulitis. Patient currently being treated with Keflex for her leg cellulitis. Patient primary care is Dr. Flaherty. Review of Systems Review of Systems Constitutional: Denies fever or chills [] Eyes: Denies change in visual acuity, redness, or eye pain [] HENT: Denies nasal congestion or sore throat []complains of right facial pain and forehead hematoma. Respiratory: Denies cough or shortness of breath [] Cardiovascular: No additional information not addressed in HPI [] GI: Denies abdominal pain, nausea, vomiting, bloody stools or diarrhea [] : Denies dysuria or hematuria [] Musculoskeletal: Denies back pain or joint pain []complains of right shoulder pain Integument: Complains of leg cellulitis Neurologic: Denies headache, focal weakness or sensory changes [] Endocrine: Denies polyuria or polydipsia [] All other systems were reviewed and found to be within normal limits, except as documented in this note. Family History Family History Noncontributory to presentation Current Medications Current Medications Current Medications Medications (Trade) Dose Ordered Sig/Lary Start Time Stop Time Status Last Admin Dose Admin Ceftriaxone Sodium 1 gm/ Sodium Chloride 50 ml @ 100 mls/hr 1X ONCE 11/25/18 03:00 11/25/18 03:29 DC 11/25/18 03:15 100 MLS/HR Ceftriaxone Sodium (Rocephin) 1 gm STK-MED ONCE 11/25/18 02:57 11/25/18 02:58 DC Diphtheria/ Tetanus/Acell Pertussis (Boostrix) 0.5 ml ONCE ONCE 11/25/18 03:00 11/25/18 03:01 DC 11/25/18 03:19 0.5 ML Fentanyl Citrate (Fentanyl 2ml Vial) 50 mcg PRN Q15MIN PRN 11/25/18 00:30 11/25/18 04:12 DC 11/25/18 04:09 50 MCG Lactated Ringer's 1,000 ml @ 100 mls/hr Q10H 11/25/18 00:30 11/25/18 04:12 DC 11/25/18 02:02 100 MLS/HR Sodium Chloride 50 ml @ As Directed STK-MED ONCE 11/25/18 02:57 11/25/18 02:58 DC Allergies Allergies Allergies Coded Allergies Type Severity Reaction Last Updated Verified amoxicillin Allergy Severe Anaphylaxis 07/04/18 No venom-honey bee Allergy Severe Shortness of Air 07/25/15 Yes tree nut Allergy Intermediate MONEGASQUE WALNUTS 07/25/15 Yes I S O L A T I O N *CONTACT* Allergy Unknown 08/30/15 Yes Physical Exam Physical Exam Constitutional: in acute distress, non-toxic appearance. [] HENT: Normocephalic, right facial hematoma and contusion ,bilateral external ears normal, oropharynx moist, no oral exudates, nose normal. [] Eyes: PERRLA, EOMI, conjunctiva normal, no discharge. Periorbital hematoma. No double vision. Neck: Normal range of motion, some praveen cervical tenderness, , supple, no stridor. [] Cardiovascular:Heart rate regular rhythm, no murmur, PMI to the left Lungs & Thorax: Bilateral breath sounds equal apexes scattered wheezes throughout on auscultation [] Abdomen: Bowel sounds normal, soft, no tenderness, no masses, no pulsatile masses. [] Multiple surgery scars Skin: Warm, dry, no erythema, venous stasis changes and cellulitis Back: No tenderness, no CVA tenderness. [] Extremities: No tenderness, no cyanosis, no clubbing, ROM intact, no edema. Except findings in right shoulder as per history of present illness. Does have generalized arthritic changes Neurologic: Alert and oriented X 3, moves all extremities on request , we'll cannot move right shoulder due to pain, does have distal sensory , no focal deficits noted. [] Psychologic: Affect tearful and depressed, judgement appears normal. Somewhat angry because the family did not come with her & refused to bring a change of clothes. Current Patient Data Vital Signs Vital Signs Date Time Temp Pulse Resp B/P (MAP) Pulse Ox O2 Delivery O2 Flow Rate FiO2 11/25/18 04:09 20 96 Room Air 11/25/18 03:42 61 138/63 (88) 11/25/18 00:08 97.5 Lab Results Laboratory Tests Test 11/25/18 01:30 11/25/18 01:53 Urine Collection Type Unknown Urine Color Yellow Urine Clarity Clear Urine pH 5.0 Urine Specific [place] 1.025 Urine Protein Neg (NEG-TRACE) Urine Glucose (UA) Neg mg/dL (NEG) Urine Ketones (Stick) 15 mg/dL (NEG) Urine Blood Neg (NEG) Urine Nitrite Neg (NEG) Urine Bilirubin Neg (NEG) Urine Urobilinogen Dipstick 0.2 mg/dL (0.2 mg/dL) Urine Leukocyte Esterase Neg (NEG) Urine RBC 0 /HPF (0-2) Urine WBC Occ /HPF (0-4) Urine Squamous Epithelial Cells Many /LPF Urine Bacteria Few /HPF (0-FEW) Urine Opiates Screen Neg (NEG) Urine Methadone Screen Neg (NEG) Urine Barbiturates Neg (NEG) Urine Phencyclidine Screen Neg (NEG) Urine Amphetamine/Methamphetamine Neg (NEG) Urine Benzodiazepines Screen Neg (NEG) Urine Cocaine Screen Neg (NEG) Urine Cannabinoids Screen Neg (NEG) Urine Ethyl Alcohol Neg (NEG) White Blood Count 11.7 x10^3/uL (4.0-11.0) H Red Blood Count 3.87 x10^6/uL (3.50-5.40) Hemoglobin 11.0 g/dL (12.0-15.5) L Hematocrit 33.9 % (36.0-47.0) L Mean Corpuscular Volume 87 fL (79-100) Mean Corpuscular Hemoglobin 28 pg (25-35) Mean Corpuscular Hemoglobin Concent 32 g/dL (31-37) Red Cell Distribution Width 15.8 % (11.5-14.5) H Platelet Count 240 x10^3/uL (140-400) Neutrophils (%) (Auto) 82 % (31-73) H Lymphocytes (%) (Auto) 9 % (24-48) L Monocytes (%) (Auto) 8 % (0-9) Eosinophils (%) (Auto) 0 % (0-3) Basophils (%) (Auto) 0 % (0-3) Neutrophils # (Auto) 9.6 x10^3uL (1.8-7.7) H Lymphocytes # (Auto) 1.1 x10^3/uL (1.0-4.8) Monocytes # (Auto) 1.0 x10^3/uL (0.0-1.1) Eosinophils # (Auto) 0.0 x10^3/uL (0.0-0.7) Basophils # (Auto) 0.0 x10^3/uL (0.0-0.2) Prothrombin Time 9.8 SEC (9.4-11.4) Prothrombin Time INR 0.9 (0.9-1.1) Activated Partial Thromboplast Time 21 SEC (23-33) L Sodium Level 139 mmol/L (136-145) Potassium Level 4.4 mmol/L (3.5-5.1) Chloride Level 105 mmol/L (98-107) Carbon Dioxide Level 22 mmol/L (21-32) Anion Gap 12 (6-14) Blood Urea Nitrogen 27 mg/dL (7-20) H Creatinine 1.1 mg/dL (0.6-1.0) H Estimated GFR (Cockcroft-Gault) 49.1 Glucose Level 175 mg/dL (70-99) H Calcium Level 8.6 mg/dL (8.5-10.1) Magnesium Level 1.9 mg/dL (1.8-2.4) Total Bilirubin 0.2 mg/dL (0.2-1.0) Direct Bilirubin 0.1 mg/dL (0.0-0.2) Aspartate Amino Transferase (AST) 11 U/L (15-37) L Alanine Aminotransferase (ALT) 17 U/L (14-59) Alkaline Phosphatase 64 U/L (46-116) Creatine Kinase 48 U/L (26-192) Troponin I Quantitative < 0.017 ng/mL (0-0.055) RD-Yfv-U-Type Natriuretic Peptide 587 pg/mL (0-124) H Total Protein 6.5 g/dL (6.4-8.2) Albumin 3.1 g/dL (3.4-5.0) L EKG EKG My interpretation EKG shows a sinus rhythm at 67 bpm. No findings acute STEMI of contralateral changes. Somewhat low voltage.[] Radiology/Procedures Radiology/Procedures [[place] [address] IMAGING REPORT Signed PATIENT: HIREN LOUIS ACCOUNT: [id number] : 1950 LOCATION: ER AGE: 68 SEX: F EXAM STATUS: REG ER ORD. PHYSICIAN: MIKIE SIFUENTES MD REASON: Fall, right shoulder and upper arm pain PROCEDURE: SHOULDER 2+V RIGHT AP chest x-ray HISTORY: Fall, right shoulder and arm pain and chest pain. FINDINGS: Heart size normal. Mediastinal silhouette is normal. Small calcified granuloma region of the lingula. No pneumothorax, pulmonary opacities or pleural effusions. Right humeral head and neck fracture. IMPRESSION: No acute process in the chest. Fracture of the right shoulder. Right shoulder x-rays 3 views HISTORY: Fall, right shoulder pain. FINDINGS: There is acute traumatic comminuted distracted fracture of the humeral head and neck with involvement of the articular cortex and tuberosities with probable increase risk of injury of the rotator cuff. There is anterior and medial distraction of the humeral neck abutting the glenoid. The comminuted humeral head is not dislocated and remains at the glenoid. IMPRESSION: Acute traumatic distracted comminuted fracture of the humeral head and neck as described above. Right humerus AP lateral x-rays HISTORY: Fall, right arm and shoulder pain. FINDINGS: Acute traumatic comminuted distracted fracture of the humeral head and neck. Distal humerus intact. The humeral shaft may abut the inferior glenoid.. IMPRESSION: Acute traumatic comminuted fracture of the humeral head and neck. Electronically signed by: Sergio May MD (11/25/2018 3:01 AM) [facility] DICTATED AND SIGNED BY: SERGIO MAY MD DATE: 11/25/18300 CC: MIKIE SIFUENTES MD; SHARAD FLAHERTY MD ~ [place] [address] IMAGING REPORT Signed PATIENT: HIREN LOUIS ACCOUNT: [id number] : 1950 LOCATION: ER AGE: 68 SEX: F EXAM STATUS: REG ER ORD. PHYSICIAN: MIKIE SIFUENTES MD REASON: Fall, hit right side of head, headache, neck pain PROCEDURE: CT HEAD AND CERVICAL SPINE WO CT head without contrast. CT cervical spine without contrast PQRS statement: CT scans at this facility use dose reduction including either automated exposure control, iterative reconstructions, and /or weight based radiation dosing via mA and kV modification when appropriate to reduce radiation dose to as low as reasonably achievable. HISTORY: Fell and hit right side of head, headache, neck pain. TECHNIQUE: Noncontrast imaging and cervical spine multiplanar reconstructions. COMPARISON: CT head November 11, 2018. CT head findings: No intracranial hemorrhage, mass, hydrocephalus, or infarction. No acute ischemic change. Right periorbital and lower frontal scalp soft tissue hematoma with a maximum thickness of 1.5 cm. Bones, mastoids unremarkable. IMPRESSION: No acute intracranial CT abnormality. Right periorbital and frontal scalp hematoma. No skull fracture. CT cervical spine findings: Craniocervical junction intact. Cervical vertebral body height and alignment intact. No fracture of the cervical spine. C5-C6 disc osteophyte and uncovertebral spurring with spinal canal and neural foraminal stenoses. Lung apices and paraspinal tissues are unremarkable. IMPRESSION: No acute osseous injury of the cervical spine. Cervical disc disease as described above. Electronically signed by: Sergio May MD (11/25/2018 1:37 AM) [id number] DICTATED AND SIGNED BY: SERGIO MAY MD DATE: 11/25/18 0137][place] [address] IMAGING REPORT Signed PATIENT: HIREN LOUIS ACCOUNT: [id number] : 1950 LOCATION: ER AGE: 68 SEX: F EXAM STATUS: REG ER ORD. PHYSICIAN: MIKIE SIFUENTES MD REASON: Fall, hit right side of face, eye and forehead pain and swelling PROCEDURE: CT MAXILLOFACIAL WO CONTRAST Maxillofacial CT without contrast HISTORY: Fell and hit right side of face, right frontal scalp and orbital swelling and pain. TECHNIQUE: Noncontrast CT imaging of the facial bones with multiplanar reconstructions. FINDINGS: There is a right superior periorbital and frontal scalp soft tissue hematoma maximum thickness of 1.5 cm. No post septal orbital edema or hematoma. No fracture of the bony orbits. Facial bones intact. Maxilla and mandible intact. Paranasal sinuses are well-aerated. IMPRESSION: Facial bones intact. Right periorbital and frontal scalp soft tissue hematoma. Exposure: One or more of the following individualized dose reduction techniques were utilized for this examination: 1. Automated exposure control 2. Adjustment of the mA and/or kV according to patient size 3. Use of iterative reconstruction technique Electronically signed by: Sergio May MD (11/25/2018 1:41 AM) [facility] DICTATED AND SIGNED BY: SERGIO MAY MD DATE: 11/25/18 0141 CC: MIKIE SIFUENTES MD; SHARAD FLAHERTY MD ~ Course & Med Decision Making Course & Med Decision Making Pertinent Labs and Imaging studies reviewed. (See chart for details) Discussed presentation, testing and tx. plan with Dr. Robb and Dr. Blanc. - [place]. Pt. to be transfer to [facility] for admit and Rt humerus fx reduction. [] Final Impression Final Impression 1. Trip and Fall 2. Head Injury- Hematoma 3. Leukocytosis- 11.7 4. Anemia Hgb 11 5. Elevated BUN/ Creat 27/1.1 6. DM Gluc 175 7. Malnutrition alb. 3.1 8. Cellulitis Legs 9. Hx CHF - BNP 587 10. Right humeral head comminuted fracture [] Dragon Disclaimer Dragon Disclaimer This electronic medical record was generated, in whole or in part, using a voice recognition dictation system. Dragon Disclaimer This chart was dictated in whole or in part using Voice Recognition software in a busy, high-work load, and often noisy Emergency Department environment. It may contain unintended and wholly unrecognized errors or omissions. Dragon Disclaimer This chart was dictated in whole or in part using Voice Recognition software in a busy, high-work load, and often noisy Emergency Department environment. It may contain unintended and wholly unrecognized errors or omissions. MIKIE SIFUENTES MD Nov 25, 2018 00:12
[2018-11-25] MEDS ORDERED: IV RINGERS SOLUTION,LACTATED 1,000 ML IV SCH (00:30)
--- NOTE | 2018-11-25 01:41 | RAD ---
CT head without contrast. CT cervical spine without contrast PQRS statement: CT scans at this facility use dose reduction including either automated exposure control, iterative reconstructions, and /or weight based radiation dosing via mA and kV modification when appropriate to reduce radiation dose to as low as reasonably achievable. HISTORY: Fell and hit right side of head, headache, neck pain. TECHNIQUE: Noncontrast imaging and cervical spine multiplanar reconstructions. COMPARISON: CT head November 11, 2018. CT head findings: No intracranial hemorrhage, mass, hydrocephalus, or infarction. No acute ischemic change. Right periorbital and lower frontal scalp soft tissue hematoma with a maximum thickness of 1.5 cm. Bones, mastoids unremarkable. IMPRESSION: No acute intracranial CT abnormality. Right periorbital and frontal scalp hematoma. No skull fracture. CT cervical spine findings: Craniocervical junction intact. Cervical vertebral body height and alignment intact. No fracture of the cervical spine. C5-C6 disc osteophyte and uncovertebral spurring with spinal canal and neural foraminal stenoses. Lung apices and paraspinal tissues are unremarkable. IMPRESSION: No acute osseous injury of the cervical spine. Cervical disc disease as described above. Electronically signed by: Gil May MD (11/25/2018 1:37 AM) [facility]
--- NOTE | 2018-11-25 01:44 | RAD ---
Maxillofacial CT without contrast HISTORY: Fell and hit right side of face, right frontal scalp and orbital swelling and pain. TECHNIQUE: Noncontrast CT imaging of the facial bones with multiplanar reconstructions. FINDINGS: There is a right superior periorbital and frontal scalp soft tissue hematoma maximum thickness of 1.5 cm. No post septal orbital edema or hematoma. No fracture of the bony orbits. Facial bones intact. Maxilla and mandible intact. Paranasal sinuses are well-aerated. IMPRESSION: Facial bones intact. Right periorbital and frontal scalp soft tissue hematoma. Exposure: One or more of the following individualized dose reduction techniques were utilized for this examination: 1. Automated exposure control 2. Adjustment of the mA and/or kV according to patient size 3. Use of iterative reconstruction technique Electronically signed by: Gil May MD (11/25/2018 1:41 AM) [facility]
[2018-11-25 01:59] LABS: BARBITURATES NEG (NEG); BENZODIAZEPINES NEG (NEG); CANNABINOIDS NEG (NEG); COCAINE NEG (NEG); METHADONE NEG (NEG); OPIATES NEG (NEG); PHENCYCLIDINE NEG (NEG)
[2018-11-25 02:02] LABS: BACTERIA,URINE FEW /HPF (0-FEW); BILIRUBIN,URINE NEG (NEG); CLARITY,URINE CLEAR; COLOR,URINE YELLOW; GLUCOSE,URINE NEG (NEG); NITRITE,URINE NEG (NEG); RBC,URINE 0 /HPF (0-2); SQUAMOUS EPITHELIAL CELL,UR MANY /LPF; UROBILINOGEN,URINE 0.2 mg/dL (0.2 mg/dL); WBC,URINE OCC /HPF (0-4)
[2018-11-25 02:03] LABS: AMPHETAMINE/METHAMPHETAMINE NEG (NEG)
[2018-11-25 02:11] LABS: BASO % 0 % (0-3); EOS % 0 % (0-3); HEMATOCRIT 33.9 % (36.0-47.0); LYMPH # 1.1 x10^3/uL (1.0-4.8); LYMPH % 9 % (24-48); MEAN CORPUSCULAR HEMOGLOBIN 28 pg (25-35); MEAN CORPUSCULAR HGB CONC 32 g/dL (31-37); MEAN CORPUSCULAR VOLUME 87 fL (79-100); MONO % 8 % (0-9); NEUT # 9.6 x10^3uL (1.8-7.7); NEUT % 82 % (31-73); PLATELET COUNT 240 x10^3/uL (140-400); RED BLOOD COUNT 3.87 x10^6/uL (3.50-5.40); RED CELL DISTRIBUTION WIDTH 15.8 % (11.5-14.5); WHITE BLOOD COUNT 11.7 x10^3/uL (4.0-11.0)
[2018-11-25 02:32] LABS: ALBUMIN 3.1 g/dL (3.4-5.0); CALCIUM 8.6 mg/dL (8.5-10.1); CREATININE 1.1 mg/dL (0.6-1.0); DIRECT BILIRUBIN 0.1 mg/dL (0.0-0.2); GFR 49.1; MAGNESIUM 1.9 mg/dL (1.8-2.4); POTASSIUM 4.4 mmol/L (3.5-5.1); TOTAL BILIRUBIN 0.2 mg/dL (0.2-1.0); TOTAL PROTEIN 6.5 g/dL (6.4-8.2)
[2018-11-25] MEDS ORDERED: IV NORMAL SALINE 50ML 50 ML ONE (02:57)
[2018-11-25] MEDS ORDERED: cefTRIAXone SODIUM 1 GM VIAL ONE (02:57)
[2018-11-25] MEDS ORDERED: DIPHTH,PERTUSS(ACELL),TET TOX 0.5 ML DISP.SYRIN. VAX IM ONE (03:00)
--- NOTE | 2018-11-25 03:04 | RAD ---
AP chest x-ray HISTORY: Fall, right shoulder and arm pain and chest pain. FINDINGS: Heart size normal. Mediastinal silhouette is normal. Small calcified granuloma region of the lingula. No pneumothorax, pulmonary opacities or pleural effusions. Right humeral head and neck fracture. IMPRESSION: No acute process in the chest. Fracture of the right shoulder. Right shoulder x-rays 3 views HISTORY: Fall, right shoulder pain. FINDINGS: There is acute traumatic comminuted distracted fracture of the humeral head and neck with involvement of the articular cortex and tuberosities with probable increase risk of injury of the rotator cuff. There is anterior and medial distraction of the humeral neck abutting the glenoid. The comminuted humeral head is not dislocated and remains at the glenoid. IMPRESSION: Acute traumatic distracted comminuted fracture of the humeral head and neck as described above. Right humerus AP lateral x-rays HISTORY: Fall, right arm and shoulder pain. FINDINGS: Acute traumatic comminuted distracted fracture of the humeral head and neck. Distal humerus intact. The humeral shaft may abut the inferior glenoid.. IMPRESSION: Acute traumatic comminuted fracture of the humeral head and neck. Electronically signed by: Gil May MD (11/25/2018 3:01 AM) [facility]
[2018-11-25 03:42] VITALS: BP 138/63
--- NOTE | 2018-11-25 05:41 | EKG ---
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
== END 2018-11-25 04:12 | disposition short-term general hospital (02) ==
LOC: ER 00:08
DX: S42.351A Displaced comminuted fracture of shaft of humerus, right arm, initial encounter for closed fracture (principal); S00.83XA Contusion of other part of head, initial encounter; D72.829 Elevated white blood cell count, unspecified; D64.9 Anemia, unspecified; E11.9 Type 2 diabetes mellitus without complications; E46 Unspecified protein-calorie malnutrition; L03.116 Cellulitis of left lower limb; L03.115 Cellulitis of right lower limb; I11.0 Hypertensive heart disease with heart failure; I50.9 Heart failure, unspecified; R79.89 Other specified abnormal findings of blood chemistry; J44.9 Chronic obstructive pulmonary disease, unspecified; E66.01 Morbid (severe) obesity due to excess calories; Z68.37 Body mass index [BMI] 37.0-37.9, adult; Z98.84 Bariatric surgery status; Z88.1 Allergy status to other antibiotic agents; Z91.030 Bee allergy status; Z91.041 Radiographic dye allergy status; Z91.018 Allergy to other foods; W01.198A Fall on same level from slipping, tripping and stumbling with subsequent striking against other object, initial encounter; Y93.89 Activity, other specified; Y92.89 Other specified places as the place of occurrence of the external cause; Y99.8 Other external cause status
CPT/HCPCS: 36415; 70450; 70486; 71045; 72125; 73030; 73060; 80048; 80076; 80307; 81001; 82550; 83735; 83880; 84443; 84484; 85025; 85610; 85730; 90471; 90715; 93005; 96361; 96365; 96375; 96376; 99285; J0696; J3010; J7120

== ENCOUNTER 2018-12-27 18:43 | Emergency (ER) | payer MEDICARE, OTHER ==
[~2018-12-27] VITALS: Ht 160 cm; Wt 95.3 kg
--- NOTE | 2018-12-27 19:12 | PHYS DOC ---
Past History Past Medical History: Anxiety, Asthma, COPD, Diabetes, Hypertension, [place], Other Past Surgical History: Cholecystectomy, Gastric Bypass, Hysterectomy, Tonsillectomy, Other Additional Past Surgical Histo: Camelia-en-Y Smoking: Non-smoker Alcohol Use: Occasionally Drug Use: None Adult General Chief Complaint Chief Complaint: MULTIPLE COMPLAINTS HPI HPI Patient is b/l leg pain calf down red shiny pain increasing with ambulation radiates diffusely recent shoulder surgery. just got out of [facility]: anxiety, mi, multiple other issues. s/p gastric bypas hysterectomy appendectomy has not had any anxiety medications for a month. takes oxycodone for pain. shoulder also hurting. came from home, lives with her who is blind. Review of Systems Review of Systems Constitutional: Denies fever or chills [] Eyes: Denies change in visual acuity, redness, or eye pain [] HENT: Denies nasal congestion or sore throat [] Respiratory: Denies cough or shortness of breath [] Cardiovascular: No additional information not addressed in HPI [] GI: Denies abdominal pain, nausea, vomiting, bloody stools or diarrhea [] Neurologic: Denies headache, focal weakness or sensory changes [] Endocrine: Denies polyuria or polydipsia [] All other systems were reviewed and found to be within normal limits, except as documented in this note. Allergies Allergies Allergies Coded Allergies Type Severity Reaction Last Updated Verified amoxicillin Allergy Severe Anaphylaxis 07/04/18 No venom-honey bee Allergy Severe Shortness of Air 07/25/15 Yes tree nut Allergy Intermediate [place] WALNUTS 07/25/15 Yes I S O L A T I O N *CONTACT* Allergy Unknown 08/30/15 Yes Physical Exam Physical Exam Constitutional: Well developed, well nourished, no acute distress, non-toxic appearance. [] HENT: Normocephalic, old eechymosis on the upper face periorbital area, bilateral external ears normal, oropharynx moist, no oral exudates, nose normal. [] Eyes: PERRLA, EOMI, conjunctiva normal, no discharge. [] Neck: Normal range of motion, no tenderness, supple, no stridor. [] Cardiovascular:Heart rate regular rhythm, no murmur [] Lungs & Thorax: Bilateral breath sounds clear to auscultation [] Abdomen: Bowel sounds normal, soft, no tenderness, no masses, no pulsatile masses. [] Skin: see below Back: No tenderness, no CVA tenderness. [] Extremities:there is erythema warmth inudration left lower extremity from foot to mid to upper calf/murcia area. there is bruising upper shoulder no erythema there, rom limited but pt proud to show progress from physical therapy some external rotation noted Current Patient Data Vital Signs Vital Signs Date Time Temp Pulse Resp B/P (MAP) Pulse Ox O2 Delivery O2 Flow Rate FiO2 12/27/18 18:43 97.7 72 18 100 Room Air Temperature (Fahrenheit): * 97.7 degrees F (97.6-99.5) Patient Temperature * 97.7 degrees F (97.5-99.5) Temperature Source * Oral Blood Pressure Systolic * 143 mm Hg (100-140) H Blood Pressure Diastolic * 63 mm Hg (60-100) Blood Pressure Mean * 89 mm Hg Blood Pressure Location * Right Arm Blood Pressure Source * Automatic Cuff Pulse Rate * 72 beats per minute (60-90) Pulse Assessment Method * Monitor Respiratory Rate * 18 breaths per minute (12-24) Oxygen Delivery Method * Room Air Bedside Pulse Oximetry * 100 % Treatment Prior to Arrival * No Complaint of Pain * Yes Lab Results tress * Mild Temperature (Fahrenheit): * 97.7 degrees F (97.6-99.5) Patient Temperature * 97.7 degrees F (97.5-99.5) Temperature Source * Oral Blood Pressure Systolic * 143 mm Hg (100-140) H Blood Pressure Diastolic * 63 mm Hg (60-100) Blood Pressure Mean * 89 mm Hg Blood Pressure Location * Right Arm Blood Pressure Source * Automatic Cuff Pulse Rate * 72 beats per minute (60-90) Pulse Assessment Method * Monitor Respiratory Rate * 18 breaths per minute (12-24) Oxygen Delivery Method * Room Air Bedside Pulse Oximetry * 100 % EKG EKG [] Radiology/Procedures Radiology/Procedures [] Impressions: Findings: There is no sonographic evidence of deep venous thrombosis involving the visualized deep venous structures of either lower extremity. Impression: Negative study. Electronically signed by: Clayton Dominguez MD (12/27/2018 10:23 PM) [facility] DICTATED AND SIGNED BY: CLAYTON DOMINGUEZ MD DATE: 12/27/18 0176 CC: NNAMDI FRASER MD; SHARAD PADILLA MD ~ Course & Med Decision Making Course & Med Decision Making Pertinent Labs and Imaging studies reviewed. (See chart for details) []Prior history of COPD hypertension and [place] recent shoulder fracture getting physical therapy just got back [facility] presenting with left lower extremity cellulitis ultrasound negative for DVT vital signs are reassuring she has had this for over a week now. I recommended IV labs IV antibiotics and admission due to the appearance clinically as well as the fact that she has a left leg involved and a right shoulder that is still recovering. She absolutely declined admission she said she wants to try oral antibiotics she has appointment with physical therapy on Thursday that she just must keep and she wants to go home to be with her family as well. Return precautions discussed I did advise her we marked the leg if it were to extend beyond the jennifer she should come back right away for IV antibiotics and she understands Dragon Disclaimer Dragon Disclaimer This electronic medical record was generated, in whole or in part, using a voice recognition dictation system. Departure Departure: Impression: Primary Impression: Cellulitis Disposition: HOME, SELF-CARE Condition: STABLE Referrals: SHARAD PADILLA MD (PCP) Scripts Clindamycin Hcl (CLINDAMYCIN HCL) 300 Mg Capsule 1 CAP PO TID for cellulits, #30 CAP Prov: NNAMDI FRASER MD 12/27/18 NNAMDI FRASER MD Dec 27, 2018 19:12
[2018-12-27] MEDS ORDERED: ONDANSETRON ODT 4 MG TAB.RAPDIS PO ONE (20:15)
[2018-12-27] MEDS ORDERED: HYDROcodone/APAP 5/325MG 1 TAB TABLET PO ONE (20:15)
[2018-12-27] MEDS ORDERED: CLINDAMYCIN HCL 150 MG CAPSULE PO SCH (20:15)
[2018-12-27] MEDS ORDERED: KETOROLAC 30 MG/ML VIAL. IM ONE (20:30)
[2018-12-27] MEDS ORDERED: CLIN300C8 PO (21:09)
--- NOTE | 2018-12-27 22:26 | RAD ---
Bilateral lower extremity venous duplex study 12/27/2018 Clinical History: Bilateral lower leg redness and swelling. Technique: Using a combination of real time ultrasound imaging and color-flow and pulse Doppler imaging techniques along with graded compression and augmentation, duplex evaluation of the deep venous system of the both lower extremities was performed. Multiple images were obtained. Findings: There is no sonographic evidence of deep venous thrombosis involving the visualized deep venous structures of either lower extremity. Impression: Negative study. Electronically signed by: Clayton Dominguez MD (12/27/2018 10:23 PM) [facility]
[2018-12-27 22:35] VITALS: BP 122/55
== END 2018-12-27 22:35 | disposition home or self-care (01) ==
LOC: ER 18:43
DX: L03.116 Cellulitis of left lower limb (principal); M79.604 Pain in right leg; F41.9 Anxiety disorder, unspecified; J44.9 Chronic obstructive pulmonary disease, unspecified; E11.9 Type 2 diabetes mellitus without complications; I10 Essential (primary) hypertension; I25.2 Old myocardial infarction; Z98.84 Bariatric surgery status; Z88.1 Allergy status to other antibiotic agents; Z91.030 Bee allergy status; Z91.041 Radiographic dye allergy status; Z91.018 Allergy to other foods
CPT/HCPCS: 93970; 96372; 99284; J1885; Q0162

== ENCOUNTER 2019-01-06 13:37 | Emergency (ER) | payer MEDICARE, OTHER ==
[~2019-01-06] VITALS: Ht 160 cm; Wt 96.0 kg
[~2019-01-06 13:37] MED LIST changes: +CLIN300C8 PO
--- NOTE | 2019-01-06 14:10 | PHYS DOC ---
Past History Past Medical History: Anxiety, Asthma, COPD, Diabetes, Hypertension, [place], Other Past Surgical History: Cholecystectomy, Gastric Bypass, Hysterectomy, Tonsillectomy, Other Additional Past Surgical Histo: Camelia-en-Y Smoking: Non-smoker Alcohol Use: Occasionally Drug Use: None Adult General Chief Complaint Chief Complaint: SHOULDER INJURY HPI HPI Patient is a 68-year-old female presents with right shoulder pain. Patient sustained a fracture approximately 6 weeks ago. She was doing well from that up until getting done with rehabilitation yesterday. She noticed bruising in the posterior aspect of her upper arm. Increased pain with moving at the wrist. Patient is also out of her pain medicine because she was admitted to a rehabilitation facility and missed her primary care physician's appointment for this month. She denies any new numbness or tingling. Denies any trauma.[] Review of Systems Review of Systems Constitutional: Denies fever or chills [] Eyes: Denies change in visual acuity, redness, or eye pain [] HENT: Denies nasal congestion or sore throat [] Respiratory: Denies cough or shortness of breath [] Cardiovascular: No chest pain or palpitations[] GI: Denies abdominal pain, nausea, vomiting, bloody stools or diarrhea [] : Denies dysuria or hematuria [] Musculoskeletal: Denies back pain, see history of present illness[] Integument: Denies rash or skin lesions [] Neurologic: Denies headache, focal weakness or sensory changes [] Endocrine: Denies polyuria or polydipsia [] All other systems were reviewed and found to be within normal limits, except as documented in this note. Allergies Allergies Allergies Coded Allergies Type Severity Reaction Last Updated Verified amoxicillin Allergy Severe Anaphylaxis 07/04/18 No venom-honey bee Allergy Severe Shortness of Air 07/25/15 Yes tree nut Allergy Intermediate CITIZEN [place] 07/25/15 Yes I S O L A T I O N *CONTACT* Allergy Unknown 08/30/15 Yes Physical Exam Physical Exam Constitutional: Well developed, well nourished, no acute distress, non-toxic appearance. [] HENT: Normocephalic, atraumatic, bilateral external ears normal, oropharynx moist, no oral exudates, nose normal. [] Eyes: PERRLA, EOMI, conjunctiva normal, no discharge. [] Neck: Normal range of motion, no tenderness, supple, no stridor. [] Cardiovascular:Heart rate regular rhythm, no murmur [] Lungs & Thorax: Bilateral breath sounds clear to auscultation [] Abdomen: Not examined. [] Skin: Warm, dry, no erythema, no rash. [] Back: No tenderness, no CVA tenderness. [] Extremities: Right shoulder: Patient is in an immobilizer. Decreased active range of motion secondary to pain. There is bruising on the posterior aspect of her upper arm. This is approximately 7 cm by a 2 cm maximum dimensions. Longest in the cephalad caudad dimension. No elbow tenderness. Full active range of motion at the elbow. She is distally neurovascularly intact. The other 3 extremities show: No tenderness, no cyanosis, no clubbing, ROM intact, no edema. [] Neurologic: Alert and oriented X 3, normal motor function, normal sensory function, no focal deficits noted. [] Psychologic: Affect normal, judgement normal, mood normal. [] Current Patient Data Vital Signs Vital Signs Date Time Temp Pulse Resp B/P (MAP) Pulse Ox O2 Delivery O2 Flow Rate FiO2 01/06/19 13:43 98.5 88 18 99 Room Air EKG EKG [] Radiology/Procedures Radiology/Procedures PROCEDURE: HUMERUS RIGHT SHOULDER 2+V RIGHT, HUMERUS RIGHT History: Increased pain and bruising. Technique: 3 views right shoulder and 2 views right humerus. Comparison: November 25, 2018 Findings: Comminuted displaced right proximal humerus fracture. There is increased callus formation indicating healing. There is increased displacement of the humeral shaft measures 1 cm compared to 0.5 cm. There is increased lateral angulation of the distal fracture fragment. No evidence of dislocation. No new fracture. Impression: 1. Healing comminuted displaced right proximal humerus fracture, mildly increased displacement and angulation of the distal fracture fragment.[] Course & Med Decision Making Course & Med Decision Making Pertinent Labs and Imaging studies reviewed. (See chart for details) ED course: Patient arrived, was placed in bed, and tolerated exam well. She was given pain medicine while in the emergency department. She was transported to and from radiology with any complications. After the return of the imaging findings, these were discussed with the patient. Consultation was made with orthopedic surgery. They will see her in follow-up. She has an appointment on January 17 already existing with orthopedic surgeon. She was discharged in improved condition with the shoulder immobilizer reapplied. She was distally neurovascularly intact. Medical decision making: Patient appears to be failing conservative management of her shoulder fracture given the increasing displacement. There is no evidence of an acute neurologic or vascular issue. No evidence of an open fracture. Patient already has follow-up scheduled. Directing her to call the office for further guidance regarding continuing rehabilitation and possible need for an earlier appointment.[] Dragon Disclaimer Dragon Disclaimer This electronic medical record was generated, in whole or in part, using a voice recognition dictation system. Departure Departure: Impression: Primary Impression: Shoulder fracture, right Disposition: HOME, SELF-CARE Condition: IMPROVED Referrals: SHARAD PADILLA MD (PCP) Patient Instructions: Shoulder Fracture, Shoulder Immobilizer Additional Instructions: Follow-up with Dr. Blanc and orthopedic surgery. Address: [address] [place] [address] Call today or tomorrow to arrange follow-up appointment before your currently scheduled one if available. Return to the ER if worsening pain, weakness, or any other concerns. Scripts Oxycodone Hcl/Acetaminophen (PERCOCET 5-325 MG TABLET ) 1 Each Tablet 1 TAB PO PRN QID PRN for severe pain MDD 4 Tablet(s) for 5 Days, #20 TAB 0 Refills Prov: BHUPINDER RIVERA DO 01/06/19 Problem Qualifiers Primary Impression: Shoulder fracture, right Encounter type: subsequent encounter Fracture type: closed Fracture healing: with nonunion Qualified Codes: S42.91XK - Fracture of right shoulder girdle, part unspecified, subsequent encounter for fracture with nonunion BHUPINDER RIVERA DO Jan 06, 2019 14:10
[2019-01-06] MEDS ORDERED: HYDROcodone/APAP 5/325MG 1 TAB TABLET PO ONE (14:15)
--- NOTE | 2019-01-06 14:54 | RAD ---
SHOULDER 2+V RIGHT, HUMERUS RIGHT History: Increased pain and bruising. Technique: 3 views right shoulder and 2 views right humerus. Comparison: November 25, 2018 Findings: Comminuted displaced right proximal humerus fracture. There is increased callus formation indicating healing. There is increased displacement of the humeral shaft measures 1 cm compared to 0.5 cm. There is increased lateral angulation of the distal fracture fragment. No evidence of dislocation. No new fracture. Impression: 1. Healing comminuted displaced right proximal humerus fracture, mildly increased displacement and angulation of the distal fracture fragment. Electronically signed by: Ryan Pino DO (01/06/2019 2:51 PM) [facility]
[2019-01-06 15:10] VITALS: BP 131/63
[2019-01-06] MEDS ORDERED: OXYC1TAB15 PO (15:29)
== END 2019-01-06 15:35 | disposition home or self-care (01) ==
LOC: ER 13:37
DX: S42.201K Unspecified fracture of upper end of right humerus, subsequent encounter for fracture with nonunion (principal); J44.9 Chronic obstructive pulmonary disease, unspecified; E11.9 Type 2 diabetes mellitus without complications; I10 Essential (primary) hypertension; I25.2 Old myocardial infarction; Z98.84 Bariatric surgery status; Z88.1 Allergy status to other antibiotic agents; Z91.041 Radiographic dye allergy status; Z91.030 Bee allergy status; Z91.018 Allergy to other foods; X58.XXXD Exposure to other specified factors, subsequent encounter
CPT/HCPCS: 73030; 73060; 99284

== ENCOUNTER 2019-04-08 21:46 | Inpatient (IN) | payer MEDICARE, OTHER ==
[~2019-04-08] VITALS: Ht 160 cm; Wt 95.7 kg
[~2019-04-08 21:46] MED LIST changes: +OXYC1TAB15 PO
[2019-04-08] MEDS ORDERED: CLINDAMYCIN 600MG PREMIX 50 ML IV ONE (22:30)
[2019-04-08] MEDS ORDERED: IV NORMAL SALINE 1,000ML 1,000 ML IV ONE (22:30)
--- NOTE | 2019-04-08 22:41 | PHYS DOC ---
Past History Past Medical History: Anxiety, Asthma, COPD, Diabetes, Hypertension, [place], Other Past Surgical History: Cholecystectomy, Gastric Bypass, Hysterectomy, Tonsillectomy, Other Additional Past Surgical Histo: Camelia-en-Y Smoking: Non-smoker Alcohol Use: Occasionally Drug Use: None Adult General Chief Complaint Chief Complaint: LOWER EXTREMITY SWELLING HPI HPI 69-year-old female presents via EMS with report of increased redness and pain to right lower abdomen. Patient reports she has tried using nystatin powders without improvement. Reports concern for recurrence of previous panniculitis. Denies nausea or vomiting. Denies fever or chills. Denies trauma. Patient also reporting increased bilateral lower extremity edema. Reports history of prior DVT. Reports is currently treated with Eliquis. Review of Systems Review of Systems Constitutional: Denies fever or chills Eyes: Denies redness or eye pain HENT: Denies nasal congestion or sore throat Respiratory: Denies cough or shortness of breath Cardiovascular: Denies chest pain or palpitations GI: Reports abdominal pain; denies nausea or vomiting : Denies dysuria or hematuria Musculoskeletal: Denies back pain; reports bilateral lower extremity edema Integument: Reports erythematous rash to right lower quadrant Neurologic: Denies headache, focal weakness or sensory changes Complete systems were reviewed and found to be within normal limits, except as documented in this note.. Current Medications Current Medications Current Medications Medications (Trade) Dose Ordered Sig/Lary Start Time Stop Time Status Last Admin Dose Admin Clindamycin Phosphate 50 ml @ 100 mls/hr 1X ONCE 04/08/19 22:30 04/08/19 22:59 Info (Do NOT chart on this entry -- for MONITORING) 1 each PRN DAILY PRN 04/08/19 22:45 04/10/19 22:44 Iohexol (Omnipaque 300 Mg/ml) 75 ml 1X ONCE 04/08/19 23:00 04/08/19 23:01 Sodium Chloride 1,000 ml @ 1,000 mls/hr 1X ONCE 04/08/19 22:30 04/08/19 23:29 Allergies Allergies Allergies Coded Allergies Type Severity Reaction Last Updated Verified amoxicillin Allergy Severe Anaphylaxis 07/04/18 No venom-honey bee Allergy Severe Shortness of Air 07/25/15 Yes tree nut Allergy Intermediate [place] 07/25/15 Yes I S O L A T I O N *CONTACT* Allergy Unknown 08/30/15 Yes Physical Exam Physical Exam Constitutional: Well developed, well nourished, no acute distress, non-toxic appearance HENT: Normocephalic, atraumatic, oropharynx moist Eyes: Conjunctiva normal, no discharge Neck: Normal range of motion, no tenderness, supple Cardiovascular: Heart rate normal, regular rhythm Lungs & Thorax: Bilateral breath sounds clear to auscultation, no wheezing Abdomen: Soft, right lower quadrant tenderness Skin: Warm, dry, significant erythema and induration to right lower quadrant beneath panniculus, appears to have cutaneous fungal infection with associated cellulitis component Extremities: No tenderness, ROM intact, 2+ pitting edema to BLE Neurologic: Alert and oriented X 3, no focal deficits noted Psychologic: Affect normal, judgement normal EKG EKG @ 2227 NSR at 69bpm, NO ST elevation, low voltage QRS Radiology/Procedures Radiology/Procedures PROCEDURE: VENOUS LOWER EXT BILATERAL CLINICAL HISTORY: Swelling, history of DVT COMPARISON: None available. TECHNIQUE: Ultrasound evaluation of the bilateral lower extremities was performed from the groin to the upper calf with vu scale, spectral and color doppler evaluation. FINDINGS: The bilateral common femoral vein, and femoral vein, including the saphenous-femoral junction are normal in appearance. Color and spectral Doppler evaluation demonstrates normal spontaneous flow, augmentation and phasicity. Calf veins are not well visualized. The bilateral popliteal vein and visualized calf veins also demonstrate normal compressibility and flow. IMPRESSION: No evidence for occlusive DVT in the bilateral lower extremities. Electronically signed by: Kraig Kyle MD (04/09/2019 12:20 AM) [facility] PROCEDURE: CT ABD PELV W/ IV CONTRST ONLY EXAM: CT Abdomen and Pelvis with IV contrast CLINICAL HISTORY: Abdominal wall erythema, pain COMPARISON: 04/09/2016 TECHNIQUE: Helical CT of the abdomen and pelvis was performed following the administration of intravenous contrast. Axial, coronal and sagittal reformatted images were generated. PQRS compliance statement - One or more of the following individualized dose reduction techniques were utilized for this study: 1. Automated exposure control 2. Adjustment of the mA and/or kV according to patient size 3. Use of iterative reconstruction technique FINDINGS: Lower chest: Coronary artery calcifications are seen. Abdomen and Pelvis: No focal liver lesion. Spleen is unremarkable. Gallbladder is not seen. No biliary duct dilatation. Increase is mildly atrophic but otherwise unremarkable. Adrenal glands are normal. Symmetric nephrograms. Multiple bilateral parapelvic renal cysts are seen. Mild bladder wall thickening likely cystitis. Changes of gastric bypass are seen. Moderate to large volume colonic stool content. No bowel obstruction. Colonic diverticulosis without evidence for acute diverticulitis. Aortic calcifications are seen. IVC filter is seen. One of the legs of the IVC filter extends beyond the margin of the IVC, abutting the aorta (series 2 image 31). No abdominal pelvic ascites. No abdominal pelvic lymphadenopathy. Diffuse abdominal wall edema without discrete loculated fluid collection. Bones: Degenerative changes of the spine are seen. No aggressive osseous lesion is seen. Height loss of the T11 vertebral body is stable. IMPRESSION: 1. Abdominal wall edema, nonspecific, no drainable loculated fluid collection is seen. 2. Colonic diverticula are seen. No evidence for acute diverticulitis. 3. Moderate to large volume colonic stool content. 4. IVC filter is seen. One of the legs of the IVC filter extends beyond the margin of the IVC, abutting the aorta 5. Mild bladder wall thickening likely cystitis. Electronically signed by: Kraig Kyle MD (04/09/2019 12:40 AM) [facility] Course & Med Decision Making Course & Med Decision Making Pertinent Labs and Imaging studies reviewed. (See chart for details) Patient presents with report of right lower quadrant abdominal pain and bilateral lower extremity edema. History of prior panniculitis and DVT. Venous Doppler is negative for DVT. Labs obtained and posted to chart. CT abdomen/pelvis with abdominal wall edema and signs of constipation. Empiric antibiotic initiated for concern for panniculitis. Patient requiring admission for further evaluation and treatment. Discussed with Dr. Robb (hospitalist) who is in agreement with admission. Discussed findings and plan with patient, who acknowledges understanding and agreement. Dragon Disclaimer Dragon Disclaimer This electronic medical record was generated, in whole or in part, using a voice recognition dictation system. Departure Departure: Impression: Primary Impression: Panniculitis Additional Impressions: Peripheral edema Constipation Disposition: ADMITTED INPATIENT Admitting Physician: Kevin Robb Condition: STABLE Referrals: SHARAD PADILLA MD (PCP) Problem Qualifiers Additional Impressions: Constipation Constipation type: unspecified constipation type Qualified Codes: K59.00 - Constipation, unspecified CRISTY GRADY DO Apr 08, 2019 22:41
[2019-04-08] MEDS ORDERED: CONTRAST GIVEN MC PRN (22:45)
[2019-04-08 22:53] LABS: BACTERIA,URINE FEW /HPF (0-FEW); BILIRUBIN,URINE NEG (NEG); CLARITY,URINE HAZY; COLOR,URINE YELLOW; GLUCOSE,URINE NEG (NEG); NITRITE,URINE NEG (NEG); RBC,URINE OCC /HPF (0-2); SQUAMOUS EPITHELIAL CELL,UR FEW /LPF; UROBILINOGEN,URINE 0.2 mg/dL (0.2 mg/dL)
[2019-04-08] MEDS ORDERED: IOHEXOL 300 MG/ML 75 ML VIAL. IV ONE (23:00)
[2019-04-08 23:26] LABS: BASO # 0.1 x10^3/uL (0.0-0.2); BASO % 1 % (0-3); EOS # 0.1 x10^3/uL (0.0-0.7); EOS % 1 % (0-3); HEMATOCRIT 34.6 % (36.0-47.0); HEMOGLOBIN 10.6 g/dL (12.0-15.5); LYMPH # 1.7 x10^3/uL (1.0-4.8); LYMPH % 25 % (24-48); MEAN CORPUSCULAR HEMOGLOBIN 25 pg (25-35); MEAN CORPUSCULAR HGB CONC 31 g/dL (31-37); MEAN CORPUSCULAR VOLUME 82 fL (79-100); MONO # 0.6 x10^3/uL (0.0-1.1); MONO % 9 % (0-9); NEUT # 4.5 x10^3uL (1.8-7.7); NEUT % 64 % (31-73); PLATELET COUNT 279 x10^3/uL (140-400); RED BLOOD COUNT 4.23 x10^6/uL (3.50-5.40); RED CELL DISTRIBUTION WIDTH 16.6 % (11.5-14.5)
[2019-04-08 23:32] LABS: CALCIUM 7.8 mg/dL (8.5-10.1); CREATININE 0.8 mg/dL (0.6-1.0); GFR 70.9; POTASSIUM 3.8 mmol/L (3.5-5.1)
[2019-04-08 23:48] LABS: ALBUMIN 2.6 g/dL (3.4-5.0); ALBUMIN/GLOBULIN RATIO 0.8 (1.0-1.7); TOTAL BILIRUBIN 0.3 mg/dL (0.2-1.0); TOTAL PROTEIN 5.8 g/dL (6.4-8.2)
--- NOTE | 2019-04-09 00:22 | RAD ---
CLINICAL HISTORY: Swelling, history of DVT COMPARISON: None available. TECHNIQUE: Ultrasound evaluation of the bilateral lower extremities was performed from the groin to the upper calf with vu scale, spectral and color doppler evaluation. FINDINGS: The bilateral common femoral vein, and femoral vein, including the saphenous-femoral junction are normal in appearance. Color and spectral Doppler evaluation demonstrates normal spontaneous flow, augmentation and phasicity. Calf veins are not well visualized. The bilateral popliteal vein and visualized calf veins also demonstrate normal compressibility and flow. IMPRESSION: No evidence for occlusive DVT in the bilateral lower extremities. Electronically signed by: Kraig Kyle MD (04/09/2019 12:20 AM) [place] [id number]
--- NOTE | 2019-04-09 00:43 | RAD ---
EXAM: CT Abdomen and Pelvis with IV contrast CLINICAL HISTORY: Abdominal wall erythema, pain COMPARISON: 04/09/2016 TECHNIQUE: Helical CT of the abdomen and pelvis was performed following the administration of intravenous contrast. Axial, coronal and sagittal reformatted images were generated. PQRS compliance statement - One or more of the following individualized dose reduction techniques were utilized for this study: 1. Automated exposure control 2. Adjustment of the mA and/or kV according to patient size 3. Use of iterative reconstruction technique FINDINGS: Lower chest: Coronary artery calcifications are seen. Abdomen and Pelvis: No focal liver lesion. Spleen is unremarkable. Gallbladder is not seen. No biliary duct dilatation. Increase is mildly atrophic but otherwise unremarkable. Adrenal glands are normal. Symmetric nephrograms. Multiple bilateral parapelvic renal cysts are seen. Mild bladder wall thickening likely cystitis. Changes of gastric bypass are seen. Moderate to large volume colonic stool content. No bowel obstruction. Colonic diverticulosis without evidence for acute diverticulitis. Aortic calcifications are seen. IVC filter is seen. One of the legs of the IVC filter extends beyond the margin of the IVC, abutting the aorta (series 2 image 31). No abdominal pelvic ascites. No abdominal pelvic lymphadenopathy. Diffuse abdominal wall edema without discrete loculated fluid collection. Bones: Degenerative changes of the spine are seen. No aggressive osseous lesion is seen. Height loss of the T11 vertebral body is stable. IMPRESSION: 1. Abdominal wall edema, nonspecific, no drainable loculated fluid collection is seen. 2. Colonic diverticula are seen. No evidence for acute diverticulitis. 3. Moderate to large volume colonic stool content. 4. IVC filter is seen. One of the legs of the IVC filter extends beyond the margin of the IVC, abutting the aorta 5. Mild bladder wall thickening likely cystitis. Electronically signed by: Kraig Kyle MD (04/09/2019 12:40 AM) [facility]
[2019-04-09] MEDS ORDERED: ONDANSETRON PF 4 MG/2 ML VIAL. IV PRN (01:00)
[2019-04-09] MEDS ORDERED: MAGNESIUM CITRATE 296 ML SOLUTION. PO ONE (01:30)
[2019-04-09 02:11] VITALS: BP 119/72
[2019-04-09] MEDS ORDERED: LORA-434 PO (03:21)
[2019-04-09] MEDS ORDERED: TRAM50TA PO (03:21)
[2019-04-09] MEDS ORDERED: APIX5TAB3 PO (03:28)
[2019-04-09] MEDS ORDERED: METF500T16 PO (03:28)
[2019-04-09] MEDS ORDERED: MELA10CA PO (03:28)
[2019-04-09 05:25] VITALS: BP 118/69
[2019-04-09] MEDS: NYSTATIN TOPICAL POWDER 15GM BOTTLE. TP SCH ×5 (06:20→21:00)
[2019-04-09] MEDS ORDERED: IPRATRPIUM/ALBUTEROL 0.5/2.5MG 3 ML NEBU. NEB PRN (12:00)
[2019-04-09] MEDS ORDERED: traMADol 50 MG TABLET PO PRN (12:00)
[2019-04-09] MEDS ORDERED: FUROSEMIDE 20 MG TABLET PO PRN (12:00)
[2019-04-09] MEDS ORDERED: NITROGLYCERIN SUBLINGUAL 0.4 MG BOTTLE OF 25. SL PRN (12:00)
[2019-04-09] MEDS ORDERED: POLYETHYLENE GLYCOL 3350 17 GM PACKET. PO PRN (12:00)
[2019-04-09] MEDS ORDERED: LORazepam 1 MG TABLET PO PRN (12:00)
[2019-04-09] MEDS: ALBUTEROL SULFATE 2.5 MG/3 ML NEBU. IH SCH ×2 (12:00→16:00)
--- NOTE | 2019-04-09 12:39 | PN ---
DATE: 04/09/2019 PROGRESS NOTE HISTORY OF PRESENT ILLNESS: The patient is a 69-year-old female patient, who presented to the Emergency Room with a complaint of lower extremity swelling. She also reported increased redness and pain to her right lower abdomen. She tried using nystatin powder without improvement, reports of concern for recurrent previous panniculitis. Denies nausea or vomiting. Denied any fever or chills. Denied any trauma. She has also increased bilateral lower extremity. She has had history of DVT for which she continues to be on Eliquis. She was evaluated in the Emergency Room. Her white cell count was normal. Her kidney function was also within normal range. Lactic acid was normal. Urinalysis was unremarkable and the patient was admitted with panniculitis, peripheral edema, and chronic constipation. PAST MEDICAL HISTORY: Significant for bronchial asthma, hypercholesterolemia, generalized osteoarthritis, peripheral neuropathy, bipolar disorder, anxiety, depression, chronic pain syndrome, and chronic use of narcotics. PAST SURGICAL HISTORY: Significant for gastric bypass surgery, cholecystectomy, tonsillectomy, partial hysterectomy, ganglion resection, umbilical hernia repair, and incisional hernia repair. ALLERGIES: GRASS AND POLLENS, ALTHOUGH ALSO STATES AMOXICILLIN, BEE VENOM, AND TREE NUTS. FAMILY HISTORY: She has 2 brothers, both younger, one is known to have Crohn's and the other has some form of bursitis. Biological father at the age of 70 from complication of diabetes and congestive heart failure. Mother at the age of 70 of lung cancer. SOCIAL HISTORY: She is and her lives in [place]. She has 2 daughters. SOCIAL HISTORY: She has never smoked. Drinks alcohol occasionally. MEDICATIONS: She is currently on following medications: She is on loratadine 10 mg once a day, Ipratropium bromide/albuterol sulfate in 3 mL by nebulizer 4 times a day, albuterol inhaler 2 puffs every 4-6 hours, epinephrine 0.3 mg in 0.3 mL auto-injection , apixaban 5 mg twice a day, atorvastatin calcium 20 mg at bedtime, nitroglycerin 0.4 mg sublingual every 5 minutes and diclofenac sodium for Voltaren gel 1 gram topically 4 times a day, hydrocodone/APAP 5/325 one tablet every 6 hours. She is also on oxycodone 1 tablet 4 times a day, tramadol 50 mg as needed, lorazepam 1 mg as needed, furosemide 20 mg once as needed, Singulair 10 mg once a day, carboxymethylcellulose for Refresh Optive eyedrops 1 drop to both eyes 4 times a day, polyethylene glycol 17 grams daily. She is on linaclotide for Linzess 145 mcg once a day, metformin 500 mg twice a day, and tablet 1 tablet once a day, garlic 1000 mg once a day, and melatonin 10 mg at bedtime. REVIEW OF SYSTEMS: As per history of present illness. PHYSICAL EXAMINATION: GENERAL: On arrival to the Emergency Room, she looked well and was clearly in no apparent respiratory distress, slightly pale, but no jaundice, cyanosis or thyromegaly. No jugular venous distention, bilateral lower limb edema. The left lower extremity more swollen than the right and has also moderate erythema on the left side. VITAL SIGNS: Her heart rate was 85, blood pressure 153/65, temperature was 97.7, respiratory rate was 18, and oxygen saturation was 99%. HEAD, EYES, EARS, NOSE AND THROAT: Showed normocephalic, atraumatic. NECK: Supple. CARDIAC: Normal first and second heart sounds. No gallop or murmur. CHEST: Clear to auscultation. No crepitation or rhonchi. ABDOMEN: Marked distended with marked erythema on the right side of the pannus, right groin area in the upper aspect of the right thigh. There is no tenderness. No guarding or rigidity. No organomegaly. All hernial orifices intact. Bowel sounds normal. NEUROLOGIC: She is awake, alert, and responding appropriately. All cranial nerves intact. EXTREMITIES: She moves extremities without difficulty. Examination of both lower extremities showed no clubbing, cyanosis, but she has bilateral lower limb edema, left more swollen than the right as well as some oral erythema on the left side. LABORATORY DATA: Her lab work on arrival showed a white cell count of 7000, hemoglobin 11, hematocrit 34, MCV 82 and platelet count 279,000. Serum sodium was 145, potassium 3.8, chloride 110, bicarbonate 26, anion gap of 9, BUN 13, creatinine 0.8, and estimated GFR was 70 mL per minute. Her glucose 148, calcium was 7.8. Total bilirubin, AST, ALT, alkaline phosphatase were normal. Her total protein was 5.8, albumin 2.6. Her prothrombin time, INR and aPTT are all within normal range. Urinalysis was essentially unremarkable. ASSESSMENT AND PLAN: The patient underwent right reverse shoulder arthroplasty and biceps tenodesis for a fracture on 02/03/2019. She apparently was at [facility] and was discharged on 03/13/2019 and has been taking her pain medications as needed. The patient was admitted with acute panniculitis, constipation as well as left lower extremity cellulitis. PLAN: My plan is to continue diet, start her on IV antibiotic, and continue with nystatin powder. I will also arrange for her to have a venous Doppler ultrasound of her left lower extremity and continue with IV, probably vancomycin. CRISTINA LONGO MD DR: REECE/christopher JOB#: [id number] / [id number]
[2019-04-09] MEDS: DICLOFENAC SODIUM 1% TOPICAL GEL 100GM TUBE. TP SCH ×3 (13:00→21:00)
[2019-04-09 14:07] VITALS: BP 124/80
[2019-04-09] MEDS: MEROPENEM 1 GM in IV NORMAL SALINE 100ML 100 ML IV SCH ×2 (14:15→22:00)
[2019-04-09] MEDS: POLYVINYL ALCOHOL 1.4% OPHTH SOLUTION 15ML BOTTLE. OU SCH ×3 (14:16→21:00)
[2019-04-09] MEDS: LUBIPROSTONE 24 MCG CAPSULE PO SCH (17:14)
[2019-04-09] MEDS ORDERED: ALBUTEROL SULFATE 2.5 MG/3 ML NEBU. IH PRN (17:30)
[2019-04-09 19:45] VITALS: BP 147/83
[2019-04-09] MEDS: MELATONIN 3 MG TABLET PO SCH (20:58)
[2019-04-09] MEDS: APIXABAN 5 MG TABLET. PO SCH (20:58)
[2019-04-09] MEDS: ATORVASTATIN CALCIUM 10 MG TABLET. PO SCH (20:58)
[2019-04-09] MEDS: MONTELUKAST 10 MG TABLET. PO SCH (20:58)
--- NOTE | 2019-04-09 23:54 | EKG ---
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
[2019-04-10] MEDS: oxyCODONE/APAP 5/325 1 TAB TABLET PO PRN ×2 (06:02→21:04)
[2019-04-10] MEDS: MEROPENEM 1 GM in IV NORMAL SALINE 100ML 100 ML IV SCH ×3 (06:03→22:00)
[2019-04-10 06:50] VITALS: BP 124/72
[2019-04-10 08:54] LABS: HEMATOCRIT 31.1 % (36.0-47.0); HEMOGLOBIN 9.7 g/dL (12.0-15.5); RED BLOOD COUNT 3.8 x10^6/uL (3.50-5.40); RED CELL DISTRIBUTION WIDTH 17.1 % (11.5-14.5); WHITE BLOOD COUNT 4.5 x10^3/uL (4.0-11.0)
[2019-04-10] MEDS: DICLOFENAC SODIUM 1% TOPICAL GEL 100GM TUBE. TP SCH (09:00)
[2019-04-10] MEDS ORDERED: NON FORMULARY ITEM (Garlic 1,000 MG) PO SCH (09:00)
[2019-04-10] MEDS: NYSTATIN TOPICAL POWDER 15GM BOTTLE. TP SCH ×5 (09:00→21:00)
[2019-04-10] MEDS: POLYVINYL ALCOHOL 1.4% OPHTH SOLUTION 15ML BOTTLE. OU SCH (09:00)
[2019-04-10 09:03] LABS: ALBUMIN 2.2 g/dL (3.4-5.0); ALBUMIN/GLOBULIN RATIO 0.7 (1.0-1.7); C REACTIVE PROTEIN 1.1 mg/L (0-3.3); CALCIUM 7.6 mg/dL (8.5-10.1); CREATININE 0.6 mg/dL (0.6-1.0); GFR 98.5; POTASSIUM 3.6 mmol/L (3.5-5.1); TOTAL BILIRUBIN 0.3 mg/dL (0.2-1.0); TOTAL PROTEIN 5.2 g/dL (6.4-8.2)
[2019-04-10] MEDS: LACTOBACILLUS RHAMNOSUS GG 1 CAPSULE. PO SCH ×2 (09:05→21:03)
[2019-04-10] MEDS: CETIRIZINE HCL 10 MG TABLET PO SCH (09:05)
[2019-04-10] MEDS: PRENATAL MULTIVITAMIN TABLET. PO SCH (09:06)
[2019-04-10] MEDS: APIXABAN 5 MG TABLET. PO SCH ×2 (09:06→21:03)
[2019-04-10] MEDS: FUROSEMIDE 20 MG TABLET PO SCH (09:06)
[2019-04-10] MEDS: LUBIPROSTONE 24 MCG CAPSULE PO SCH ×2 (09:07→18:01)
[2019-04-10 10:46] VITALS: BP 107/67
[2019-04-10] MEDS ORDERED: POLYVINYL ALCOHOL 1.4% OPHTH SOLUTION 15ML BOTTLE. OU PRN (13:15)
[2019-04-10] MEDS ORDERED: DICLOFENAC SODIUM 1% TOPICAL GEL 100GM TUBE. TP PRN (13:15)
--- NOTE | 2019-04-10 13:42 | PN ---
DATE: 04/10/2019 SUBJECTIVE: The patient is resting flat, comfortably in bed, in no apparent distress. She denied any complaint. Nursing staff did not voice any concern that she generally has an uneventful night. Her blood cultures have grown gram-positive cocci in clusters, 2 sets drawn 1 out of 3 positive. The identification and sensitivity is still pending. The area of her right groin and erythema is much improved as well as the redness in the left lower extremity. She has had venous Doppler ultrasound, which showed no evidence of deep vein thrombosis. PHYSICAL EXAMINATION: GENERAL: When I examined her, she looked pale, but no jaundice, cyanosis or thyromegaly. No jugular venous distention. No lower limb edema. VITAL SIGNS: Her heart rate was 67, blood pressure 124/72, temperature was 97.8, respiratory rate 20, and oxygen saturation was 99% on room air. HEAD, EYES, EARS, NOSE AND THROAT: Showed normocephalic, atraumatic. NECK: Supple. HEART: Showed normal first and second heart sounds. No murmurs. CHEST: Clear to auscultation. No crepitation or rhonchi. ABDOMEN: Distended, soft. The erythema and the pannus and right groin area, which is resolving slowly. There is no tenderness. No guarding or rigidity. No organomegaly. All hernial orifices intact. Bowel sounds normal. NEUROLOGIC: She is awake, alert, responding appropriately. All cranial nerves are intact. She moves extremities without difficulty. Her intake was 1500, no output was recorded. LABORATORY DATA: Her lab work this morning showed a white cell count 4500, hemoglobin 10, hematocrit 31, MCV 82 and platelet count of 208,000. Her chemistry showed a serum sodium 146, potassium 3.6, chloride 111, bicarbonate 28, anion gap of 7, BUN 9, creatinine 0.6, estimated GFR was 98 mL per minute. Her glucose 105, calcium was 7.6. Total bilirubin, AST, ALT, alkaline phosphatase were normal. Her C-reactive protein was 1.1. Total protein was 5.2, albumin was 2.2. ASSESSMENT: 1. Acute panniculitis. 2. Left lower extremity cellulitis. 3. Severe constipation. 4. She has multiple other medical problems including bronchial asthma. 5. Hypercholesterolemia. 6. Generalized osteoarthritis. 7. Peripheral neuropathy. 8. Bipolar disorder. 9. Chronic pain syndrome. PLAN: To continue with current plan of management, mainly to continue with IV antibiotic in the form of meropenem as well as linezolid. Continue with all other medication. We will wait for the identification and sensitivity and once that becomes available, we can switch her to oral antibiotic and she can be discharged home. CRISTINA LONGO MD DR: REECE/christopher JOB#: [id number] / [id number]
[2019-04-10 19:20] VITALS: BP 114/68
[2019-04-10] MEDS: ATORVASTATIN CALCIUM 10 MG TABLET. PO SCH (21:00)
[2019-04-10] MEDS: MONTELUKAST 10 MG TABLET. PO SCH (21:03)
[2019-04-10] MEDS: MELATONIN 3 MG TABLET PO SCH (21:04)
[2019-04-11] MEDS: HYDROcodone/APAP 5/325MG 1 TAB TABLET PO PRN ×2 (03:12→21:17)
[2019-04-11 05:51] VITALS: BP 110/60
[2019-04-11] MEDS: MEROPENEM 1 GM in IV NORMAL SALINE 100ML 100 ML IV SCH ×2 (06:51→14:11)
[2019-04-11] MEDS: LACTOBACILLUS RHAMNOSUS GG 1 CAPSULE. PO SCH ×2 (08:03→21:16)
[2019-04-11] MEDS: metFORMIN 500 MG TABLET PO SCH ×2 (08:04→17:11)
[2019-04-11] MEDS: FUROSEMIDE 20 MG TABLET PO SCH (08:04)
[2019-04-11] MEDS: LUBIPROSTONE 24 MCG CAPSULE PO SCH ×2 (08:04→17:11)
[2019-04-11] MEDS: CETIRIZINE HCL 10 MG TABLET PO SCH (08:04)
[2019-04-11] MEDS: APIXABAN 5 MG TABLET. PO SCH ×2 (08:04→21:17)
[2019-04-11] MEDS: PRENATAL MULTIVITAMIN TABLET. PO SCH (08:07)
[2019-04-11] MEDS: NYSTATIN TOPICAL POWDER 15GM BOTTLE. TP SCH ×5 (09:00→21:00)
[2019-04-11] MEDS ORDERED: ONDANSETRON PF 4 MG/2 ML VIAL. IVP PRN (11:00)
[2019-04-11 11:24] VITALS: BP 115/71
[2019-04-11 15:19] VITALS: BP 125/70
[2019-04-11 19:47] VITALS: BP 122/72
[2019-04-11] MEDS: MONTELUKAST 10 MG TABLET. PO SCH (21:16)
[2019-04-11] MEDS: ATORVASTATIN CALCIUM 10 MG TABLET. PO SCH (21:16)
[2019-04-11] MEDS: MELATONIN 3 MG TABLET PO SCH (21:16)
[2019-04-12] MEDS: MEROPENEM 1 GM in IV NORMAL SALINE 100ML 100 ML IV SCH ×4 (00:44→21:02)
--- NOTE | 2019-04-12 00:51 | PN ---
DATE: 04/11/2019 SUBJECTIVE: The patient is resting, slightly propped up in bed, in no apparent distress. She is awake, alert, complaining that she had an episode of nausea and vomiting this morning. Did complain of some abdominal pain, mostly in the right lower quadrant, has had a bowel movement this morning. PHYSICAL EXAMINATION: GENERAL: When I examined her, she was pale, no jaundice, cyanosis or thyromegaly. No jugular venous distention. No lower limb edema. VITAL SIGNS: Her heart rate was 61, blood pressure was 110/60, temperature was 98, respiratory rate was 18 and oxygen saturation was 95%. HEAD, EYES, EARS, NOSE AND THROAT: Showed normocephalic, atraumatic. NECK: Supple. HEART: Showed normal first and second heart sounds. No gallop or murmur. CHEST: Clear to auscultation. No crepitation or rhonchi. ABDOMEN: Distended, soft, nontender. No guarding or rigidity. No organomegaly. All hernial orifices intact. Bowel sounds normal. NEUROLOGIC: She is awake, alert, responding appropriately. All cranial nerves are intact. She moves extremities without difficulty. She ambulates without assistance or assistive devices. SKIN: The pannus and right groin showed the erythema is fading slowly. The erythema on the right leg has mostly resolved, the left side is still fading slowly. Her intake was 1700, no output was recorded. LABORATORY WORK: As of yesterday showed a white cell count of 4500, hemoglobin 9.7, hematocrit 31, MCV 82 and platelet count of 308,000. Sedimentation rate was 10. Her blood sugar seems to be well controlled. Her chemistry as of yesterday showed a serum sodium 146, potassium 3.6, chloride 111, bicarbonate 28, anion gap of 7, BUN 9, creatinine 0.9, estimated GFR was 98 mL per minute. Her glucose 105, calcium was 7.6. Total bilirubin, AST, ALT, alkaline phosphatase were normal. Her C-reactive protein was 1.1 mg/dL, total protein was 5.2, albumin 2.2. Her blood cultures showed growth of gram-positive cocci in clusters, 2 sets drawn, 1/3 positive. Urine culture is negative. ASSESSMENT: 1. Panniculitis. 2. Left lower extremity cellulitis. 3. Severe constipation, resolved. 4. She has multiple other medical problems including: A. Bronchial asthma. B. Hypercholesterolemia. C. Generalized osteoarthritis. D. Peripheral neuropathy. E. Bipolar disorder. F. Chronic pain syndrome. PLAN: To continue with IV antibiotic. Once we have the identification and sensitivity, we will deescalate and put her on oral antibiotic and she can be discharged home. CRISTINA LONGO MD DR: REECE/christopher JOB#: [id number] / [id number]
[2019-04-12 05:03] VITALS: BP 126/71
[2019-04-12 07:03] LABS: CALCIUM 7.4 mg/dL (8.5-10.1); CREATININE 0.6 mg/dL (0.6-1.0); GFR 98.5
[2019-04-12] MEDS: LUBIPROSTONE 24 MCG CAPSULE PO SCH ×2 (08:40→17:57)
[2019-04-12] MEDS: PRENATAL MULTIVITAMIN TABLET. PO SCH (08:40)
[2019-04-12] MEDS: metFORMIN 500 MG TABLET PO SCH ×2 (08:41→17:57)
[2019-04-12] MEDS: APIXABAN 5 MG TABLET. PO SCH ×2 (08:41→20:57)
[2019-04-12] MEDS: LACTOBACILLUS RHAMNOSUS GG 1 CAPSULE. PO SCH ×2 (08:41→20:57)
[2019-04-12] MEDS: NYSTATIN TOPICAL POWDER 15GM BOTTLE. TP SCH ×5 (08:41→21:01)
[2019-04-12] MEDS: CETIRIZINE HCL 10 MG TABLET PO SCH (08:41)
[2019-04-12] MEDS: FUROSEMIDE 20 MG TABLET PO SCH (08:41)
[2019-04-12] MEDS ORDERED: ONDANSETRON ODT 4 MG TAB.RAPDIS PO PRN (09:15)
[2019-04-12 10:48] VITALS: BP 105/64
[2019-04-12 15:25] VITALS: BP 122/70
[2019-04-12 19:38] VITALS: BP 133/73
[2019-04-12] MEDS: oxyCODONE/APAP 5/325 1 TAB TABLET PO PRN (20:57)
[2019-04-12] MEDS: MELATONIN 3 MG TABLET PO SCH (20:57)
[2019-04-12] MEDS: MONTELUKAST 10 MG TABLET. PO SCH (20:58)
[2019-04-12] MEDS: LINEZOLID 600 MG TABLET PO SCH (20:58)
[2019-04-12] MEDS: ATORVASTATIN CALCIUM 10 MG TABLET. PO SCH (21:04)
[2019-04-12 22:53] VITALS: BP 104/52
[2019-04-13] MEDS: MEROPENEM 1 GM in IV NORMAL SALINE 100ML 100 ML IV SCH (04:12)
[2019-04-13 06:09] VITALS: BP 131/71
[2019-04-13] MEDS: APIXABAN 5 MG TABLET. PO SCH (08:12)
[2019-04-13] MEDS: CETIRIZINE HCL 10 MG TABLET PO SCH (08:12)
[2019-04-13] MEDS: LUBIPROSTONE 24 MCG CAPSULE PO SCH (08:12)
[2019-04-13] MEDS: FUROSEMIDE 20 MG TABLET PO SCH (08:12)
[2019-04-13] MEDS: LACTOBACILLUS RHAMNOSUS GG 1 CAPSULE. PO SCH (08:12)
[2019-04-13] MEDS: metFORMIN 500 MG TABLET PO SCH (08:12)
[2019-04-13] MEDS: LINEZOLID 600 MG TABLET PO SCH (08:13)
[2019-04-13] MEDS: PRENATAL MULTIVITAMIN TABLET. PO SCH (08:13)
[2019-04-13] MEDS: NYSTATIN TOPICAL POWDER 15GM BOTTLE. TP SCH ×3 (08:14→15:03)
--- NOTE | 2019-04-13 11:05 | PN ---
DATE: SUBJECTIVE: The patient was resting slightly propped up in bed, in no apparent distress. She was admitted with panniculitis and left lower extremity cellulitis. Her lab work, she remained afebrile throughout her stay here. Her white cell count is normal and her inflammatory markers are also normal. Her blood cultures have grown gram-positive cocci in clusters, 2 sets drawn 1/3 positive probably contaminant. The panniculitis and right groin intertriginous candidiasis has largely resolved. She continued to have some erythema on the left lower extremity. Unfortunately, multiple attempts were made to place an IV line and so far failed and therefore, a decision was made to switch her to oral Zyvox. We decided to discharge her home today; however, she said that there is nobody in the house and even if she helped her to get into the house, she does not have the keys to enter and therefore, a decision was made to keep her overnight. She will be started on Zyvox 600 mg twice a day and she will be discharged tomorrow to follow with her primary care physician. PHYSICAL EXAMINATION: GENERAL: When I saw her this afternoon, she was resting flat, comfortably in bed, in no apparent respiratory distress. She was pale. No jaundice, cyanosis or thyromegaly. No jugular venous distention. No lower limb edema. VITAL SIGNS: Her heart rate was 75, blood pressure 122/70, temperature was 98, respiratory rate was 20 and oxygen saturation was 94% on room air. HEAD, EYES, EARS, NOSE AND THROAT: Normocephalic, atraumatic. NECK: Supple. HEART: Showed normal first and second heart sounds. No gallop or murmur. CHEST: Clear to auscultation. No crepitation or rhonchi. ABDOMEN: Distended, soft, and nontender. NEUROLOGIC: She is awake, alert, responding appropriately. All cranial nerves intact. She moves extremities without difficulty. She ambulates without assistance or assistive devices. Examination of the skin showed that her panniculitis especially in the right lower quadrant as well as right groin intertriginous candidiasis has largely subsided. She continued to have some erythema on her left leg more so than the right. Her intake over the last 24 hours was 1870, no output was recorded. LABORATORY DATA: Her most recent chemistry showed a white cell count 4500, hemoglobin 9.7, hematocrit 31, MCV ____ and platelet count 308,000. Her chemistry showed a serum sodium 144, potassium 4, chloride 111, bicarbonate 29, anion gap of 4, BUN 7, creatinine 0.6, estimated GFR was 98.5. Her glucose was 90, calcium was 7.4. Coagulation tests were all normal and urinalysis essentially unremarkable. ASSESSMENT: 1. Panniculitis, resolving. 2. Left lower extremity cellulitis. The patient continued to have mild erythema. 3. Severe constipation, resolved. 4. The patient has multiple other medical problems including bronchial asthma, hypercholesterolemia, generalized osteoarthritis, peripheral neuropathy, bipolar disorder, chronic pain syndrome. PLAN: To as we have difficulty establishing an IV access, I switched her to oral Zyvox and the plan is for her to be discharged home tomorrow to continue treatment as an outpatient and to follow with her primary care physician. CRISTINA LONGO MD DR: REECE/christopher JOB#: [id number] / [id number]
== END 2019-04-13 17:11 | disposition home or self-care (01) | DRG 602 ==
LOC: ER 21:46 → 1 SOUTH 04-09 00:50
PROVIDERS: ADMIT Internal Medicine; ATTEND Internal Medicine
DX: L03.116 Cellulitis of left lower limb (principal); E43 Unspecified severe protein-calorie malnutrition; M79.3 Panniculitis, unspecified; B37.2 Candidiasis of skin and nail; E78.00 Pure hypercholesterolemia, unspecified; F31.9 Bipolar disorder, unspecified; G62.9 Polyneuropathy, unspecified; G89.4 Chronic pain syndrome; I10 Essential (primary) hypertension; J44.9 Chronic obstructive pulmonary disease, unspecified; K57.30 Diverticulosis of large intestine without perforation or abscess without bleeding; K59.09 Other constipation; M15.9 Polyosteoarthritis, unspecified; N30.90 Cystitis, unspecified without hematuria; Z79.891 Long term (current) use of opiate analgesic; Z80.1 Family history of malignant neoplasm of trachea, bronchus and lung; Z82.49 Family history of ischemic heart disease and other diseases of the circulatory system; Z83.3 Family history of diabetes mellitus; Z86.718 Personal history of other venous thrombosis and embolism; Z90.711 Acquired absence of uterus with remaining cervical stump; Z96.611 Presence of right artificial shoulder joint; Z98.84 Bariatric surgery status; F41.9 Anxiety disorder, unspecified; Z90.49 Acquired absence of other specified parts of digestive tract; E11.42 Type 2 diabetes mellitus with diabetic polyneuropathy; Z79.4 Long term (current) use of insulin; Z68.37 Body mass index [BMI] 37.0-37.9, adult
CPT/HCPCS: 36415; 74177; 80048; 80053; 81001; 82553; 82947; 83605; 83690; 83880; 84484; 85025; 85027; 85610; 85651; 85730; 86140; 87040; 87077; 87086; 87205; 87641; 93005; 93970; 96361; 96365; 96375; J2020; J2185; J2405; J3010; J3490; Q0162; Q9967; 99285-25; J7030

== ENCOUNTER → 2019-05-25 | Outpatient (CLI) | payer MEDICARE, OTHER ==
[~2019-05-25] MED LIST changes: +APIX5TAB3 PO; +LORA-434 PO; +MELA10CA PO; +METF500T16 PO
[2019-05-25 09:52] LABS: CALCIUM 8.5 mg/dL (8.5-10.1); CREATININE 0.8 mg/dL (0.6-1.0); GFR 70.7; POTASSIUM 3.8 mmol/L (3.5-5.1); TOTAL BILIRUBIN 0.4 mg/dL (0.2-1.0); TOTAL PROTEIN 6.1 g/dL (6.4-8.2)
[2019-05-25 20:07] LABS: HEMOGLOBIN A1C 6.1 % (4.8-5.6)
== END | disposition home or self-care (01) ==
LOC: LAB 07:47
PROVIDERS: ATTEND Nurse Practitioner
DX: E78.5 Hyperlipidemia, unspecified (principal); E11.9 Type 2 diabetes mellitus without complications
CPT/HCPCS: 36415; 80053; 80061; 83036

== ENCOUNTER → 2019-08-08 | Outpatient (CLI) | payer MEDICARE, OTHER ==
[~2019-08-08] MED LIST changes: -FERR15DR20 PO; -OXYC30TA PO; +OXYC30TA3 PO; +[UNRECOGNIZED DRUG - CODE] PO
--- NOTE | 2019-08-08 09:48 | RAD ---
SHOULDER 2+V RIGHT History: Reason: PAIN / Spl. Instructions: / History: . 3 views are obtained. Comparison with 01/06/2019. There has been a surgical shoulder replacement with long humeral stem. No evidence of acute fracture. No evidence of aggressive bone destruction. No evidence of dislocation. No significant soft tissue abnormality. IMPRESSION: Right shoulder replacement without evidence of acute fracture or dislocation. Electronically signed by: Ariel Jenkins MD (08/08/2019 9:46 AM) [id number]
== END ==
LOC: DXRAD 09:26
PROVIDERS: ATTEND Physician Assistant
DX: M24.611 Ankylosis, right shoulder (principal); M79.2 Neuralgia and neuritis, unspecified
CPT/HCPCS: 73030

== ENCOUNTER → 2019-08-16 | Outpatient (CLI) | payer MEDICARE, OTHER ==
--- NOTE | 2019-08-16 15:36 | RAD ---
Examination: CERVICAL SPINE 2-3V History: Reason: NECK PAIN / Spl. Instructions: / History: Comparison/Correlation: None Findings: Total of 5 images of the cervical spine were obtained. Alignment is normal. Vertebral body heights are unremarkable. Moderate to severe C5-6 disc space narrowing is present with spurring. No fracture or bone destruction. Dens and lateral masses are unremarkable. Lung apices are clear. Shoulder joint prosthesis is seen on lateral view. Impression: Moderately advanced C5-6 disc space narrowing. Electronically signed by: Krishna Maloney MD (08/16/2019 3:33 PM) [id number]
== END | disposition home or self-care (01) ==
LOC: RAD 14:53
PROVIDERS: ATTEND Psychiatry & Neurology Neurology
DX: M48.02 Spinal stenosis, cervical region (principal)
CPT/HCPCS: 72040

== ENCOUNTER 2019-10-12 15:35 | Observation (INO) | payer MEDICARE, OTHER ==
[~2019-10-12] VITALS: Ht 160 cm; Wt 84.5 kg
[~2019-10-12 15:35] MED LIST changes: -ASPI-612 PO; +ASPI-889 PO
--- NOTE | 2019-10-12 15:45 | PHYS DOC ---
Past History Past Medical History: Anxiety, Asthma, COPD, Diabetes, DVT, Hypertension, MD, Other Past Surgical History: Cholecystectomy, Gastric Bypass, Hysterectomy, Tonsillectomy, Other Additional Past Surgical Histo: Camelia-en-Y Smoking: Non-smoker Alcohol Use: Occasionally Drug Use: None Adult General Chief Complaint Chief Complaint: CHEST PAIN HPI HPI Patient is a 69-year-old female who presents for chest pain. Onset was this morning and woke her from sleep. Patient describes deep substernal pressure that radiated into her left shoulder and arm. Nothing known made better or worse. Severity was 10 out of 10 in severity at onset. Episode lasted less than 10 minutes and resolved spontaneously without intervention. Patient went on about her day. Nonetheless, patient had recurrent bout of similar chest pain while washing dishes. Pain had similar characteristics to that which woke her up but this time, lasted longer but spontaneously resolved without intervention after 30 minutes. Given this, patient was concerned prompting her to transport to [facility] ED for evaluation. Associated symptoms include mild nausea, feeling of impending doom, shortness of breath, and chest wall pain that was reproducible even after episodes of deep substernal pressure. Patient has extensive risk factors, is obese, type II diabetic but well controlled with last hemoglobin A1c less than 7%, has a history of cardiac catheterizations without intervention but last catheterization occurred greater than 10 years ago. She also has a history of a blood clot in her left lower leg and is subsequently on Eliquis daily and also has an IVC filter due to previous complications. Review of Systems Review of Systems Constitutional: Denies fever or chills [] Eyes: Denies change in visual acuity, redness, or eye pain [] HENT: Denies nasal congestion or sore throat [] Respiratory: Denies cough or shortness of breath [] Cardiovascular: No additional information not addressed in HPI [] GI: Denies abdominal pain, nausea, vomiting, bloody stools or diarrhea [] : Denies dysuria or hematuria [] Musculoskeletal: Denies back pain or joint pain [] Integument: Denies rash or skin lesions [] Neurologic: Denies headache, focal weakness or sensory changes [] Endocrine: Denies polyuria or polydipsia [] All other systems were reviewed and found to be within normal limits, except as documented in this note. Allergies Allergies Allergies Coded Allergies Type Severity Reaction Last Updated Verified amoxicillin Allergy Severe Anaphylaxis 4/28/19 No venom-honey bee Allergy Severe Shortness of Air 07/25/15 Yes tree nut Allergy Intermediate GIBRALTARIAN WALNUTS 07/25/15 Yes I S O L A T I O N *CONTACT* Allergy Unknown 08/30/15 Yes Physical Exam Physical Exam Constitutional: Well developed, talkative, well nourished, no acute distress, non-toxic appearance. [] HENT: Normocephalic, atraumatic, bilateral external ears normal, oropharynx moist, no oral exudates, nose normal. [] Eyes: PERRLA, EOMI, conjunctiva normal, no discharge. [] Neck: Normal range of motion, no tenderness, supple, no stridor. [] Cardiovascular:Heart rate regular rhythm, no murmur, rubs or gallops. Moderate chest wall pain to left and right parasternal muscles, different pain than what was experienced upon waking and while washing dishes [] Lungs & Thorax: Bilateral breath sounds clear to auscultation [] Abdomen: Bowel sounds normal, soft, no tenderness, no masses, no pulsatile masses. [] Skin: Warm, dry, no erythema, no rash. [] Back: No tenderness, no CVA tenderness. [] Extremities: No tenderness, no cyanosis, no clubbing, ROM intact, no edema. [] Neurologic: Alert and oriented X 3, normal motor function, normal sensory function, no focal deficits noted. [] Psychologic: Affect normal, judgement normal, mood normal. [] Current Patient Data Vital Signs Vital Signs Date Time Temp Pulse Resp B/P (MAP) Pulse Ox O2 Delivery O2 Flow Rate FiO2 10/12/19 16:00 80 18 144/74 (97) 98 Room Air Lab Results Laboratory Tests Test 10/12/19 15:40 White Blood Count 6.0 x10^3/uL Red Blood Count 4.49 x10^6/uL Hemoglobin 10.7 g/dL Hematocrit 34.3 % Mean Corpuscular Volume 77 fL Mean Corpuscular Hemoglobin 24 pg Mean Corpuscular Hemoglobin Concent 31 g/dL Red Cell Distribution Width 17.3 % Platelet Count 287 x10^3/uL Neutrophils (%) (Auto) 58 % Lymphocytes (%) (Auto) 31 % Monocytes (%) (Auto) 9 % Eosinophils (%) (Auto) 1 % Basophils (%) (Auto) 1 % Neutrophils # (Auto) 3.5 x10^3uL Lymphocytes # (Auto) 1.9 x10^3/uL Monocytes # (Auto) 0.5 x10^3/uL Eosinophils # (Auto) 0.1 x10^3/uL Basophils # (Auto) 0.1 x10^3/uL Sodium Level 140 mmol/L Potassium Level 4.3 mmol/L Chloride Level 107 mmol/L Carbon Dioxide Level 22 mmol/L Anion Gap 11 Blood Urea Nitrogen 18 mg/dL Creatinine 1.0 mg/dL Estimated GFR (Cockcroft-Gault) 54.7 BUN/Creatinine Ratio 18 Glucose Level 125 mg/dL Calcium Level 8.7 mg/dL Magnesium Level 2.0 mg/dL Total Bilirubin 0.3 mg/dL Aspartate Amino Transf (AST/SGOT) 17 U/L Alanine Aminotransferase (ALT/SGPT) 19 U/L Alkaline Phosphatase 100 U/L Troponin I Quantitative < 0.017 ng/mL QT-Otg-G-Type Natriuretic Peptide 299 pg/mL Total Protein 6.9 g/dL Albumin 3.2 g/dL Albumin/Globulin Ratio 0.9 Lipase 201 U/L Current Medications Medications (Trade) Dose Ordered Sig/Lary Route PRN Reason Start Time Stop Time Status Last Admin Dose Admin Aspirin (Aspirin Chewable) 324 mg 1X ONCE PO 10/12/19 16:30 10/12/19 16:31 DC 10/12/19 16:50 EKG EKG EKG ordered and interpreted by myself at 1544 hrs. as normal sinus rhythm at 77 bpm, unremarkable intervals, left axis deviation that is mild, no fascicular blocks, no ischemic changes, no STEMI Radiology/Procedures Radiology/Procedures 1 view chest x-ray ordered and interpreted by myself as no acute cardiopulmonary process, pending official radiologist read at this time Course & Med Decision Making Course & Med Decision Making Patient seen and evaluated on immediate ED arrival Vital signs stable, comprehensive history and physical exam obtained, subsequent labs and imaging performed Heart score 5, PERC negative. Patient administered 325 mg aspirin ED course reviewed with patient. Although asymptomatic at present, discussed extensive risk factors and suspicious history of presenting illness. I recommended admission for cardiac observation and patient was agreeable Dr. Bang was contacted about potential admission and agreed for continued cardiac observation Patient stabilized for transportation from ED to [facility]. All questions and concerns patient had addressed prior to admission Dragon Disclaimer Dragon Disclaimer This electronic medical record was generated, in whole or in part, using a voice recognition dictation system. The HEART Score for CP Pts HEART Score for Chest Pain: HEART Score for Chest Pain Response (Comments) Value History Moderately Suspicious 1 ECG Normal 0 Age > 65 2 Risk Factors >3 Risk Factors or Hx CAD 2 Troponin < Normal Limit 0 Total 5 Risk Factors: Risk Factors: DM, Current or recent (<one month) smoker, HTN, HLP, family history of CAD, obesity. Risk Scores: Score 0 - 3: 2.5% MACE over next 6 weeks - Discharge Home Score 4 - 6: 20.3% MACE over next 6 weeks - Admit for Clinical Observation Score 7 - 10: 72.7% MACE over next 6 weeks - Early Invasive Strategies Departure Departure: Impression: Primary Impression: Chest pain, rule out acute myocardial infarction Additional Impressions: Type 2 diabetes mellitus Obesity Anticoagulated Presence of IVC filter Disposition: 01 HOME/RESIDENCE PRIOR TO ADM Admitting Physician: Willie Bang ([facility]) Condition: STABLE Referrals: CINDY AKHTAR MD (PCP) Justification of Admission: Justification of Admission: Justification of Admission Dx: Yes Comments: Concerning chest pain, elevated heart score, numerous risk factors, high risk Mace if discharged home without cardiac observation Problem Qualifiers MOON HANLEY DO Oct 12, 2019 15:45
[2019-10-12] MEDS ORDERED: ASPIRIN CHEWABLE 81 MG TABLET. PO ONE (16:30)
[2019-10-12 16:42] LABS: BASO # 0.1 x10^3/uL (0.0-0.2); BASO % 1 % (0-3); EOS # 0.1 x10^3/uL (0.0-0.7); EOS % 1 % (0-3); HEMATOCRIT 34.3 % (36.0-47.0); HEMOGLOBIN 10.7 g/dL (12.0-15.5); LYMPH # 1.9 x10^3/uL (1.0-4.8); LYMPH % 31 % (24-48); MEAN CORPUSCULAR HEMOGLOBIN 24 pg (25-35); MEAN CORPUSCULAR HGB CONC 31 g/dL (31-37); MEAN CORPUSCULAR VOLUME 77 fL (79-100); MONO # 0.5 x10^3/uL (0.0-1.1); MONO % 9 % (0-9); NEUT # 3.5 x10^3uL (1.8-7.7); NEUT % 58 % (31-73); PLATELET COUNT 287 x10^3/uL (140-400); RED BLOOD COUNT 4.49 x10^6/uL (3.50-5.40); RED CELL DISTRIBUTION WIDTH 17.3 % (11.5-14.5)
[2019-10-12 16:44] LABS: CALCIUM 8.7 mg/dL (8.5-10.1); GFR 54.7; POTASSIUM 4.3 mmol/L (3.5-5.1)
[2019-10-12 16:58] LABS: ALBUMIN 3.2 g/dL (3.4-5.0); ALBUMIN/GLOBULIN RATIO 0.9 (1.0-1.7); TOTAL BILIRUBIN 0.3 mg/dL (0.2-1.0); TOTAL PROTEIN 6.9 g/dL (6.4-8.2)
--- NOTE | 2019-10-12 17:04 | RAD ---
PORTABLE CHEST 1V History: Chest pain Comparison: November 25, 2018 Findings: Single view of the chest is submitted. There is no infiltrate, pneumothorax, or effusion. The pericardial cardiac silhouette is within normal limits in size. There is now right shoulder arthroplasty. Impression: 1. There is no radiographic evidence of acute cardiopulmonary disease. Electronically signed by: Phillip Howard MD (10/12/2019 5:01 PM) [id number]
--- NOTE | 2019-10-12 17:51 | EKG ---
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
[2019-10-12 20:40] VITALS: BP 140/62
[2019-10-12 23:46] VITALS: BP 114/54
[2019-10-13 06:01] VITALS: BP 119/62
--- NOTE | 2019-10-13 09:08 | DS ---
DATE OF DISCHARGE: 10/13/2019 ATTENDING PHYSICIAN: Dr. Vinson. FINAL DISCHARGE DIAGNOSES: 1. Chest pain, musculoskeletal, coronary ischemia ruled out. 2. Chronic obstructive pulmonary disease. 3. History of Camelia-en-Y surgery. 4. History of deep venous thrombosis, on chronic anticoagulation. 5. Hypertension. 6. Anxiety with depression. HISTORY OF PRESENT ILLNESS: This is a 69-year-old female who was admitted with atypical chest pain radiating to the right shoulder. She had done some heavy housework before this. She was admitted for evaluation and serial cardiac enzymes. PHYSICAL EXAMINATION: Please see the dictated note. PERTINENT LABORATORY AND X-RAY STUDIES: Three sets of cardiac enzymes were negative for coronary ischemia. Chest x-ray was clear. EKG nondiagnostic. Electrolytes, BUN and creatinine within normal range. Hemoglobin 10.7 g/dL with a white count of 6000. COURSE IN THE HOSPITAL: The patient was admitted. Her chest pain subsided. She had no further symptoms. She ate solid foods. She was reassured that her cardiac enzymes were negative for coronary ischemia. On the second hospital day, her vital signs were stable. Her lungs were clear. Blood pressure 119/62, pulse 64 and regular. She was afebrile, oxygen saturation 96% on room air. At this time, she is able to be discharged. I reassured her. I had some psychotherapy and recommendations for reading more about codependency which will help her personality features. There are no changes on meds. She should continue her Linzess, Eliquis, nitroglycerin p.r.n., multivitamin and Eliquis once a day. She will follow up with her primary care physician as scheduled. She was then discharged from our hospital in stable condition with explicit instructions and followup care. SARWAT VINSON MD DR: FAB/christopher JOB#: [id number] / [id number]
--- NOTE | 2019-10-13 09:24 | HP ---
ADMIT DATE: ATTENDING PHYSICIAN: Dr. Vinson. CHIEF COMPLAINT: Chest pain. HISTORY OF PRESENT ILLNESS: The patient is a 69-year-old female admitted with a 1-day history of substernal chest pressure radiating to her actually right arm and shoulder. She says it is severe. It was 10/10. She had shoulder surgery a year ago. She just started using the right shoulder more. She did quite a bit of heavy housework including mopping the kitchen and vacuuming with the right hand. Her EKG was nondiagnostic. Chest x-ray was clear. She is a nonsmoker. She was sent here for chest pain, which turned out to be noncardiac in nature. She was admitted to the service overnight for serial enzymes. She denied any recent fevers or chills. She is on Eliquis for a DVT. She has IVC filter. Supposedly, she had a non-STEMI in the year of 2013. She had a cardiac catheterization, but that was 10 years ago. PAST MEDICAL HISTORY: Significant for gastric bypass surgery, Camelia-en-Y, cholecystectomy, hysterectomy. She also has anxiety, asthma, COPD, borderline diabetes, DVT, hypertension and a previous [place] in 2003. ALLERGIES: She has allergies to AMOXICILLIN and BEE VENOM. CURRENT MEDICINES: Reviewed. She was taking Linzess, albuterol, EpiPen, nitroglycerin. SOCIAL HISTORY: She is a nonsmoker, nondrinker. FAMILY HISTORY: Father unknown circumstances of alcoholism. Mother of complications of old age. She is single. She is in the process of raising 2 grandkids. REVIEW OF SYSTEMS: She is under a lot of stress because of the fact that she is raising a 2 and a 3-year old grandchild and her daughter has had multiple issues and unable to care for them and therefore, she stepped up to the plate. She denied any recent travel or weight loss. She has been very teary, under a lot of stress. All other systems reviewed and determined to be negative. PHYSICAL EXAMINATION: GENERAL: When I saw her, this is a pleasant, middle-aged female. INITIAL VITAL SIGNS: Showed a blood pressure of 140/62, pulse is 64 and regular. She was afebrile. HEENT: Head is without trauma. Pupils are reactive. Sclerae nonicteric. Oropharynx clear. NECK: Supple, no bruits identified. LUNGS: Otherwise clear. CARDIOVASCULAR: Showed regular heart tones. No gallops. Peripheral pulses are palpable and full. ABDOMEN: Soft, scaphoid, nontender. No organomegaly. Bowel sounds are normoactive. EXTREMITIES: Showed no cyanosis or edema. NEUROLOGIC: Function focally intact. Speech is fluent. SKIN: Warm and dry. PERTINENT LABORATORY STUDIES: The first set of cardiac enzymes was negative for myocardial ischemia. Hemoglobin 10.7 g/dL, white cell count 6000. Electrolytes: BUN and creatinine all within normal range. Nonfasting blood sugar 125. The BNP was 299. Chest x-ray was clear. EKG nondiagnostic. ASSESSMENT: 1. A 69-year-old female with atypical chest pain, I believe these are musculoskeletal in nature. 2. Previous history remotely of heart disease. 3. History of IVC filter. 4. Chronic obstructive pulmonary disease, stable. 5. Previous gastric bypass surgery. 6. Status post cholecystectomy. PLAN: 1. Admit to the observation admission. 2. Serial cardiac enzymes. 3. Diet as tolerated. SARWAT VINSON MD DR: FAB/christopher JOB#: [id number] / [id number]
--- NOTE | 2019-10-13 16:16 | PDOC2 ---
CONSULT DOS: DATE: 10/13/19 TIME: 16:15 Reason for Consult: Chest pain Referring Physician: Dr. Bang Chief Complaint Chest pain Source: Chart review, Patient Problem List Problems Medical Problems: (1) Anticoagulated Status: Acute (2) Chest pain, rule out acute myocardial infarction Status: Acute (3) Obesity Status: Acute (4) Presence of IVC filter Status: Acute (5) Type 2 diabetes mellitus Status: Acute History of Present Illness 69-year-old female presented complaining of retrosternal chest pain that she described as sharp at times and pressure-like sensation at other times not related to exertion or food intake. She denied any orthopnea/PND, palpitations or syncope. Apparently she had non-STEMI in 2013 and had cardiac catheteriza tion but denied any stent placement. She usually follows with cardiology at [facility]. Past Medical History Hypertension Non-STEMI 2013 without any stent placement as stated above Asthma/COPD Anxiety DVT Past Surgical History Hysterectomy Cholecystectomy Gastric bypass surgery Family History Negative for premature coronary disease Social History Patient denied any smoking, alcohol or drug use Current Medications Current Medications Aspirin (Aspirin Chewable) 324 mg 1X ONCE PO Last administered on 10/12/19at 16:50; Start 10/12/19 at 16:30; Stop 10/12/19 at 16:31; Status DC Active Scripts Active Reported NITROGLYCERIN SubLingual (Nitroglycerin) 0.4 Mg Tab.subl 0.4 Mg SL PRN Q5MIN PRN NEXT DOSE DUE: DATE: RESTART TODAY TIME: IF NEEDED FOR CHEST PAIN Linzess (Linaclotide) 145 Mcg Capsule 145 Mcg PO DAILYAC LAST DOSE GIVEN: DATE:04/10 TIME: morning NEXT DOSE DUE: DATE: 04/11 TIME: MORNING Epinephrine 0.3 Mg/0.3 Ml Auto.injct 0.3 Mg IJ NEXT DOSE DUE: DATE: TODAY TIME: IF NEEDED FOR BEE STING Allergies: Coded Allergies: amoxicillin (Unverified Allergy, Severe, Anaphylaxis, 07/04/18) Rocephin ok venom-honey bee (Verified Allergy, Severe, Shortness of Air, 07/25/15) tree nut (Verified Allergy, Intermediate, [place] WALNUTS, 07/25/15) I S O L A T I O N *CONTACT* (Verified Allergy, Unknown, 08/30/15) +MRSA sputum, nares 10-19-14 PSYCHOLOGICAL ROS: No: Hallucinations Eyes: No: Loss of vision HEENT: No: Epistaxis Respiratory: No: Cough Cardiovascular: yes: Chest Pain Gastrointestinal: No: Vomiting, Diarrhea Genitourinary: No: Henaturia Neurological: No: Seizures Skin: No: Rash General: Alert, Oriented X3 HEENT: Atraumatic, PERRLA Lungs: Clear to auscultation Heart: Regular rate Abdomen: Soft, No tenderness Neuro: Normal speech Psych/Mental Status: Mood NL VITALS Vital Signs Date Time Temp Pulse Resp B/P (MAP) Pulse Ox O2 Delivery O2 Flow Rate FiO2 10/13/19 12:06 20 10/13/19 06:01 98.0 58 119/62 (81) 99 Room Air Labs Laboratory Tests Test 10/12/19 15:40 10/12/19 22:50 10/13/19 07:00 White Blood Count 6.0 x10^3/uL (4.0-11.0) Red Blood Count 4.49 x10^6/uL (3.50-5.40) Hemoglobin 10.7 g/dL (12.0-15.5) Hematocrit 34.3 % (36.0-47.0) Mean Corpuscular Volume 77 fL (79-100) Mean Corpuscular Hemoglobin 24 pg (25-35) Mean Corpuscular Hemoglobin Concent 31 g/dL (31-37) Red Cell Distribution Width 17.3 % (11.5-14.5) Platelet Count 287 x10^3/uL (140-400) Neutrophils (%) (Auto) 58 % (31-73) Lymphocytes (%) (Auto) 31 % (24-48) Monocytes (%) (Auto) 9 % (0-9) Eosinophils (%) (Auto) 1 % (0-3) Basophils (%) (Auto) 1 % (0-3) Neutrophils # (Auto) 3.5 x10^3uL (1.8-7.7) Lymphocytes # (Auto) 1.9 x10^3/uL (1.0-4.8) Monocytes # (Auto) 0.5 x10^3/uL (0.0-1.1) Eosinophils # (Auto) 0.1 x10^3/uL (0.0-0.7) Basophils # (Auto) 0.1 x10^3/uL (0.0-0.2) Sodium Level 140 mmol/L (136-145) Potassium Level 4.3 mmol/L (3.5-5.1) Chloride Level 107 mmol/L (98-107) Carbon Dioxide Level 22 mmol/L (21-32) Anion Gap 11 (6-14) Blood Urea Nitrogen 18 mg/dL (7-20) Creatinine 1.0 mg/dL (0.6-1.0) Estimated GFR (Cockcroft-Gault) 54.7 BUN/Creatinine Ratio 18 (6-20) Glucose Level 125 mg/dL (70-99) Calcium Level 8.7 mg/dL (8.5-10.1) Magnesium Level 2.0 mg/dL (1.8-2.4) Total Bilirubin 0.3 mg/dL (0.2-1.0) Aspartate Amino Transf (AST/SGOT) 17 U/L (15-37) Alanine Aminotransferase (ALT/SGPT) 19 U/L (14-59) Alkaline Phosphatase 100 U/L (46-116) Troponin I Quantitative < 0.017 ng/mL (0-0.055) < 0.017 ng/mL (0-0.055) < 0.017 ng/mL (0-0.055) BI-Lut-Q-Type Natriuretic Peptide 299 pg/mL (0-124) Total Protein 6.9 g/dL (6.4-8.2) Albumin 3.2 g/dL (3.4-5.0) Albumin/Globulin Ratio 0.9 (1.0-1.7) Lipase 201 U/L (73-393) Assessment/Plan 1. Chest pain with atypical features, reproducible to palpation most probably musculoskeletal. Myocardial infarction has been ruled out. Consider outpatient ischemic evaluation with primary client account representative at [facility]. 2. Hypertension: Controlled 3. h/o DVT s/p IVC filter placement in the past Okay for discharge from cardiac standpoint. Thank you for your consultation ANNIE TAVARES MD Oct 13, 2019 16:16
== END 2019-10-13 13:26 | disposition home or self-care (01) ==
LOC: ER 15:35 → 1 SOUTH 17:30
PROVIDERS: ADMIT Hospitalist; ATTEND Hospitalist
DX: R07.89 Other chest pain (principal); I10 Essential (primary) hypertension; J44.9 Chronic obstructive pulmonary disease, unspecified; F41.8 Other specified anxiety disorders; I25.2 Old myocardial infarction; E11.9 Type 2 diabetes mellitus without complications; E66.9 Obesity, unspecified; Z90.49 Acquired absence of other specified parts of digestive tract; Z98.84 Bariatric surgery status; Z98.890 Other specified postprocedural states; Z90.710 Acquired absence of both cervix and uterus; Z86.718 Personal history of other venous thrombosis and embolism; Z79.01 Long term (current) use of anticoagulants; Z68.33 Body mass index [BMI] 33.0-33.9, adult
CPT/HCPCS: 36415; 71045; 80053; 83690; 83735; 83880; 84484; 85025; 93005; 99285; G0378; G0379

== ENCOUNTER 2019-12-26 14:14 | Emergency (ER) | payer MEDICARE, OTHER ==
[~2019-12-26] VITALS: Ht 160 cm; Wt 84.5 kg
--- NOTE | 2019-12-26 15:18 | PHYS DOC ---
Past History Past Medical History: Anxiety, Asthma, COPD, Diabetes, DVT, Hypertension, [place], Other (GLORIA VILLA APRN) Past Surgical History: Cholecystectomy, Hysterectomy, Tonsillectomy, Other Additional Past Surgical Histo: moiz-en-y. right shoulder replacement (GLORIA VILLA APRN) Smoking: Non-smoker Alcohol Use: None Drug Use: None (GLORIA VILLA APRN) Adult General Chief Complaint Chief Complaint: MECHANICAL FALL HPI HPI Patient is a 69 year old female who presents with pain following a fall yesterday. Patient says she was in the shower, when she had slipped and fell backwards, striking her head on the shower. States no shortness, however she did Struck her right knee on the side of the tub. Denies mental status, denies dizziness, denies complaints before fall, states she has no dizziness at this time. Does continue to have some pain in her right knee, upper neck and head. Also reports she had felt some discomfort in her right eye, and was concerned she was having a issue with her that she had had previous tear in the back of her eye. States she had a surgical repair with her eye doctor several years ago, and has been following up with them. States her main concern was that she saw some " fireworks" in her eye after the fall. Denies any loss of vision, denies any loss of clarity denies any change to her full field of vision. Patient does report she has had a lot of stressors in life, has been taking care of her disabled spouse, as well as 2 children, helping other friends with her current medical issues. States she just feels really stressed out. And has not been sleeping very well for several months. States the only time she gets good sleep is when she sleeps on the floor at home (GLORIA VILLA APRN) Review of Systems Review of Systems Constitutional: Denies fever or chills [] Eyes: Denies change in visual acuity, redness, or eye pain, does report seeing stars and "fireworks" in her right eye yesterday when she had fallen after striking her head [] HENT: Denies nasal congestion or sore throat [] Respiratory: Denies cough or shortness of breath [] Cardiovascular: No additional information not addressed in HPI [] GI: Denies abdominal pain, nausea, vomiting, bloody stools or diarrhea [] : Denies dysuria or hematuria [] Musculoskeletal: Complains of head pain, neck pain, right knee pain. States she is ambulatory is normal however more concerned that she may fall due to her discomfort [] Integument: Denies rash or skin lesions [] Neurologic: Denies headache, focal weakness or sensory changes [] Endocrine: Denies polyuria or polydipsia [] All other systems were reviewed and found to be within normal limits, except as documented in this note. (GLORIA VILLA APRN) Allergies Allergies Allergies Coded Allergies Type Severity Reaction Last Updated Verified amoxicillin Allergy Severe Anaphylaxis 07/04/18 No venom-honey bee Allergy Severe Shortness of Air 07/25/15 Yes tree nut Allergy Intermediate H[place] WALNUTS 07/25/15 Yes I S O L A T I O N *CONTACT* Allergy Unknown 08/30/15 Yes (GLORIA VILLA APRN) Physical Exam Physical Exam Constitutional: Well developed, well nourished, no acute distress, non-toxic appearance. Conversational [] HENT: Normocephalic, atraumatic, tenderness noted to occiput without bruising or erythema,oropharynx moist, no oral exudates, nose normal. [] Eyes: PERRLA, EOMI, conjunctiva normal, no discharge. Funduscopic exam without noted abnormalities OS or OD, [] Neck: Normal range of motion, tenderness noted near C6-C7 on palpation, without deformity, patient moving head with full range of motion in her, supple, no stridor. [] Cardiovascular:Heart rate regular rhythm, no murmur [] Lungs & Thorax: Bilateral breath sounds clear to auscultation [] Abdomen: Bowel sounds normal, soft, no tenderness, no masses, no pulsatile masses. [] Skin: Warm, dry, no erythema, no rash. [] Back: No tenderness, no CVA tenderness. [] Extremities: No tenderness, no cyanosis, no clubbing, ROM intact, no edema. [] Neurologic: Alert and oriented X 3, normal motor function, normal sensory function, no focal deficits noted. [] Psychologic: Affect normal, judgement normal, mood intermittently tearful, no thoughts of self-harm or harm to others does report increased dresses with her life however she does have a good social support system she reports. [] (GLORIA VILLA APRN) Current Patient Data Vital Signs Vital Signs Date Time Temp Pulse Resp B/P (MAP) Pulse Ox O2 Delivery O2 Flow Rate FiO2 12/26/19 14:30 97.4 62 20 150/100 (117) 97 Room Air (GLORIA VILLA APRN) EKG EKG [] (GLORIA VILLA APRN) Radiology/Procedures Radiology/Procedures Exam: CT head and cervical spine INDICATION: Fall, head trauma TECHNIQUE: Sequential axial images through the head and cervical were obtained without the administration of IV contrast. Comparisons: None FINDINGS: Head: No focal parenchymal lesion or hemorrhage is identified. There is no midline shift or sulcal effacement. No acute vascular territory infarction is identified. Qiu-white distinction is preserved. The ventricular system is within normal limits without compression hydrocephalus. The basal cisterns are well maintained. The visualized portions of the paranasal sinuses and mastoid air cells are well-pneumatized. No acute fractures. Cervical spine: Straightening of the cervical spine which may positional. Vertebral body heights are well-maintained. Fracture to the cervical spine is not identified. Mild multilevel spondylotic change in cervical spine with degenerative disc disease greatest at C5-C6. Visualized soft tissues are unremarkable. IMPRESSION: 1. No acute intracranial abnormality. 2. Negative CT C-spine for acute traumatic injury. [] INDICATION: Reason: fall, pain to patella / Spl. Instructions: / History: COMPARISON: May 2013 IMPRESSION: Right knee: 4 views obtained. Small ossific density is seen adjacent to the medial aspect of the distal femur but this was also present on prior and could be from a question or calcification in the soft tissues. Calcific atherosclerosis. Moderate degenerative changes the knee with osteophyte formation. A definite acute fracture line is not seen. No evidence of dislocation. Electronically signed by: Waqas Carrasco MD (12/26/2019 3:47 PM) [id number] (GLORIA VILLA APRN) Heart Score Risk Factors: Risk Factors: DM, Current or recent (<one month) smoker, HTN, HLP, family history of CAD, obesity. Risk Scores: Risk Factors: DM, Current or recent (<one month) smoker, HTN, HLP, family history of CAD, obesity. (GLORIA VILLA APRN) Course & Med Decision Making Course & Med Decision Making Pertinent Labs and Imaging studies reviewed. (See chart for details) [] Reviewed imaging results with patient, with no noted fractures or abnormalities. Patient does report she feels happy knowing that there are no fractures, and that her does not appear to have any concerning findings today. Does report she has a follow-up appoint with her primary care, advised patient to continue to rest, use caution, avoid slipping in general possible. Advised patient she needs to rest and take time for herself, due to her increased stress level. Patient in agreement with this plan. Patient with no further questions or concerns at this time, reports she feels ready for discharge (GLORIA VILLA APRN) Dragon Disclaimer Dragon Disclaimer This electronic medical record was generated, in whole or in part, using a voice recognition dictation system. (GLORIA VILLA APRN) Attending Co-Sign The patient was seen and interviewed as well as examined at the bedside. The chart was reviewed. The case was discussed. Agree with the plan of care. (MARY JANE GARCÍA DO) Departure Departure: Impression: Primary Impression: Fall in shower Additional Impressions: Head pain Neck pain on right side Disposition: 01 DC HOME SELF CARE/HOMELESS Condition: STABLE Referrals: CINDY AKHTAR MD (PCP) Patient Instructions: Fall Prevention and Home Safety, [id number], Stress Management Additional Instructions: As we discussed, take some time for yourself to rest, try to get some better sl eep at night when possible. May take Tylenol or ibuprofen as needed for discomfort. May put ice, you may continue your Voltaren gel as you have been. Follow-up with your primary care provider as needed. Problem Qualifiers Additional Impressions: Head pain Headache type: post-traumatic Headache chronicity pattern: acute headache Intractability: not intractable Qualified Codes: G44.319 - Acute post- traumatic headache, not intractable GLORIA VILLA APRN Dec 26, 2019 15:18 MARY JANE GARCÍA DO Dec 27, 2019 18:19
--- NOTE | 2019-12-26 15:48 | RAD ---
Exam: CT head and cervical spine INDICATION: Fall, head trauma TECHNIQUE: Sequential axial images through the head and cervical were obtained without the administration of IV contrast. Comparisons: None FINDINGS: Head: No focal parenchymal lesion or hemorrhage is identified. There is no midline shift or sulcal effacement. No acute vascular territory infarction is identified. Qiu-white distinction is preserved. The ventricular system is within normal limits without compression hydrocephalus. The basal cisterns are well maintained. The visualized portions of the paranasal sinuses and mastoid air cells are well-pneumatized. No acute fractures. Cervical spine: Straightening of the cervical spine which may positional. Vertebral body heights are well-maintained. Fracture to the cervical spine is not identified. Mild multilevel spondylotic change in cervical spine with degenerative disc disease greatest at C5-C6. Visualized soft tissues are unremarkable. IMPRESSION: 1. No acute intracranial abnormality. 2. Negative CT C-spine for acute traumatic injury. Exposure: One or more of the following in the visualized dose reduction techniques were utilized for this examination: 1. Automated exposure control 2. Adjustment of the MA and/or KV according to patient size Use of iterative of reconstructive technique Electronically signed by: Anayeli Welch MD (12/26/2019 3:45 PM) LO
--- NOTE | 2019-12-26 15:50 | RAD ---
INDICATION: Reason: fall, pain to patella / Spl. Instructions: / History: COMPARISON: May 2013 IMPRESSION: Right knee: 4 views obtained. Small ossific density is seen adjacent to the medial aspect of the distal femur but this was also present on prior and could be from a question or calcification in the soft tissues. Calcific atherosclerosis. Moderate degenerative changes the knee with osteophyte formation. A definite acute fracture line is not seen. No evidence of dislocation. Electronically signed by: Waqas Carrasco MD (12/26/2019 3:47 PM) [id number]
[2019-12-26 16:00] VITALS: BP 146/52
== END 2019-12-26 16:30 | disposition home or self-care (01) ==
LOC: ER 14:14
DX: G44.319 Acute post-traumatic headache, not intractable (principal); M54.2 Cervicalgia; M25.561 Pain in right knee; J44.9 Chronic obstructive pulmonary disease, unspecified; E11.9 Type 2 diabetes mellitus without complications; I10 Essential (primary) hypertension; I25.2 Old myocardial infarction; F41.9 Anxiety disorder, unspecified; Z86.718 Personal history of other venous thrombosis and embolism; Z88.1 Allergy status to other antibiotic agents; Z91.040 Latex allergy status; Z91.030 Bee allergy status; Z91.018 Allergy to other foods; W01.198A Fall on same level from slipping, tripping and stumbling with subsequent striking against other object, initial encounter; Y93.E1 Activity, personal bathing and showering; Y92.89 Other specified places as the place of occurrence of the external cause; Y99.8 Other external cause status
CPT/HCPCS: 70450; 72125; 73564; 99285

== ENCOUNTER → 2020-02-20 | Outpatient (CLI) | payer MEDICARE, OTHER ==
[~2020-02-20] MED LIST changes: +APIX5TAB5 PO; +BUPR150T8 PO; +CLON2TAB PO; +FURO-68 PO; +MULT-735 PO; +TIOT18CA IH; +albuterol inhaler; +risperdal; +topamax
== END ==
LOC: LAB 09:15
PROVIDERS: ATTEND Nurse Anesthetist, Certified Registered
DX: Z01.812 Encounter for preprocedural laboratory examination (principal); H26.8 Other specified cataract; Z20.828 Contact with and (suspected) exposure to other viral communicable diseases
CPT/HCPCS: U0003

== ENCOUNTER → 2020-02-23 | Day surgery (SDC) | payer MEDICARE, OTHER ==
[~2020-02-23] MED LIST changes: +ACETAMINOPHEN 500 MG TABLET PO PRN; +BALANCED SALT IRRIG SOLN NO.2 500 ML IO ONE; +BENZONATATE 100 MG CAPSULE. PO PRN; +BRIMONIDINE 0.2% OPHTH SOLUTION 5ML BOTTLE. OD ONE; +CEFUROXIME OPHTH 4 MG/0.4 ML SYRINGE. OD ONE; +CHONDROIT-SOD-HYALURONATE KIT. OD ONE; -CLIN300C8 PO; +CLIN300C9 PO; +IBUPROFEN 200 MG TABLET PO PRN; +IPRATRPIUM/ALBUTEROL 0.5/2.5MG 3 ML NEBU. NEB PRN; +IV RINGERS SOLUTION,LACTATED 1,000 ML IV SCH; +LIDO/EPI IN BSS OPHTH 2.7 ML SYRINGE. OD ONE; +LIDOCAINE 2% JELLY 6ML IN APPLICATOR. ONE; +MIDAZOLAM HCL PF 2 MG/2 ML VIAL. IV ONE; +ONDANSETRON PF 4 MG/2 ML VIAL. IV PRN; +PHENYLEPHRINE 10% OPHTH SOLUTION 5ML BOTTLE. OD PRN; +POVIDONE-IODINE 5% OPHTH SOLUTION 30ML BOTTLE. OD ONE; +POVIDONE-IODINE 5% OPHTH SOLUTION 30ML BOTTLE. OD PRN; +PROPARACAINE 0.5% OPHTH SOLUTION 15ML BOTTLE. OD ONE; +PROPARACAINE 0.5% OPHTH SOLUTION 15ML BOTTLE. OD PRN; +prednisoLONE ACETATE 1% OPHTH SUSPENSION 5ML BOTTLE. OD ONE
[2020-02-23] MEDS: TROPICAMIDE 1% OPHTH SOLUTION 15ML BOTTLE. OD SCH ×3 (12:04→12:18)
[2020-02-23] MEDS: TOBRAMYCIN 0.3% OPHTH SOLUTION 5ML BOTTLE. OD SCH ×2 (12:05→12:12)
[2020-02-23] MEDS: DICLOFENAC SODIUM 0.1% OPHTH SOLUTION 2.5ML BOTTLE. OD SCH ×2 (12:05→12:12)
[2020-02-23] MEDS: PHENYLEPHRINE 2.5% OPHTH SOLUTION 2ML BOTTLE. OD SCH ×3 (12:05→12:18)
--- NOTE | 2020-02-23 13:07 | PDOC4 ---
Cataract i-Stent Injection Surgeon: Ernie Castañeda MD Date of Procedure: 02/23/20 Preop Diagnosis: Visually significant cataract: Left Eye OS Primary open angle glaucoma: Left eye Postop Diagnosis: Postop Diagnosis: Same Procedure: Phaco w/ posterior chamber IOL: Left Eye OS iStent Inject Trabecular Micro: Left eye Anesthesia: Deep forniceal periocular 2% Lidocaine jelly Tania/retro bulbar block with 2% Lidocaine with 0.5% Marcaine Description of Procedure: The risks, benefits, and alternatives were discussed with the patient who elected to proceed. Informed consent was obtained in writing and placed in the chart After anesthetizing the eye topically, the patient was taken to the operating room, and the operative eye was prepped and draped in the usual sterile fashion for ocular surgery. A wire lid speculum was placed. A 1-mm clear corneal paracentesis incision was created with the sideport blade at a position three clock hours clockwise from the temporal cornea. Then 1% non-preserved Lidocaine with epinephrine was injected into the anterior chamber followed by viscoelastic. Cotton-tipped applicators were used to stabilize the globe, and a 2.4 mm keratome was used to create a self-sealing incision in the clear cornea at the temporal limbus. At this point, the head of the patient was titled away from the surgeon and the microscope was angled nasally to facilitate visualization of the nasal angle structures. Viscoelastic was placed on the corneas and a gonioprism was used to implate two iStents into the nasal trabecular meshwork. These were visualized and found to be stable in an appropriate position. At this point, a Malyugin ring was placed to acheive adequate dilation. The Utrata forceps were used to create a continuous curvilinear capsulorrhexis. Balanced saline solution was injected via cannula beneath the capsulorrhexis edge to hydrodissect the lens nucleus and cortex from the lens capsule. The phacoemulsification handpiece and a chopping instrument were then used to remove the lens nucleus. The remaining epinuclear material and cortex were removed with the irrigation/aspiration handpiece. Viscoelastic was used to re-inflate the lens capsule, and the intraocular lens was injected directly into the capsular bag. The Malyugin ring was removed. The corneal wound edges were hydrated with balanced salt solution on a cannula and the irrigation/aspiration handpiece was used to extract the remaining viscoelastic. Cefuroxime 0.1mg/ml/Vigamox 0.5% was injected into the anterior chamber intracamerally. The wounds were inspected and found to be watertight at an appropriate interocular pressure. The lid speculum and drapes were carefully removed. The patient was taken to the recovery area in good condition. Co-managed patients/postop examination stable for co-management with referring Doctor. Incision Hopkins: Incision Hopkins: 180 LRI: LRI: No Patch/Shield with Max/Tob/Eryt Patch/shield with Maxitrol/Tobradex/Erythromycin ointment: Yes No ERNIE CASTAÑEDA MD Feb 23, 2020 13:07
[2020-02-23] MEDS: POVIDONE-IODINE 5% OPHTH SOLUTION 30ML BOTTLE. OD ONE ×2 (13:19→13:35)
--- NOTE | 2020-02-23 13:39 | PDOC4 ---
SURGEON: Ernie Castañeda MD Date of Procedure: 02/23/20 PREOP Diagnosis Visually significant cataract: Right Eye OD POSTOP Diagnosis Same PROCEDURE: Phaco w/ posterior chamber IOL: Right Eye OD ANESTHESIA Deep forniceal periocular 2% Lidocaine jelly Tania/retro bulbar block with 2% Lidocaine with 0.5% Marcaine DESCRIPTION OF PROCEDURE The risks, benefits, and alternatives were discussed with the patient who elected to proceed. Informed consent was obtained in writing and placed in the chart After anesthetizing the eye topically, the patient was taken to the operating room, and the operative eye was prepped and draped in the usual sterile fashion for ocular surgery. A wire lid speculum was placed. A 1-mm clear corneal paracentesis incision was created with the side-port blade at a position three o'clock hours clockwise from the temporal cornea. Then, 1% non-preserved Lidocaine with epinephrine was injected into the anterior chamber followed by viscoelastic. Cotton-tipped applicators were used to stabilize the globe, and a 2.4 mm keratome was used to create a self-sealing incision in clear cornea at the temporal limbus. The Utrata forceps were used to create a continuous curvilinear capsulorrhexis. Balanced saline solution was injected via cannula beneath the capsulorrhexis edge to hydrodissect the lens nucleus and cortex from the lens capsule. The phacoemulsification handpiece and a chopping instrument were then used to remove the lens nucleus. The remaining epinuclear material and cortex were removed with the irrigation/aspiration handpiece. Viscoelastic was used to re-inflate the lens capsule, and the intraocular lens was injected directly into the capsular bag. The corneal wound edges were hydrated with balanced salt solution on a cannula and the irrigation/aspiration handpiece was used to extract the remaining viscoelastic. Cefuroxime 0.1mg/ml / Vigamox 0.5% was injected into the anterior chamber intracamerally. The wounds were inspected and found to be watertight at an appropriate intraocular pressure. Topical antibiotic drops were placed on the corneal surface. LRI: No If Yes, Number [] Winder [] Length [] degrees Depth [] microns Incision Winder: 180 Toric Lens Winder [] Patch/shield with Maxitrol/Tobradex/Erythromycin ointment: Yes No Co-managed patients/postop examination stable for co-management with referring doctor. ERNIE CASTAÑEDA MD Feb 23, 2020 13:39
[2020-02-23 13:47] VITALS: BP 151/74
== END | disposition home or self-care (01) ==
LOC: SURG 11:43
PROVIDERS: ATTEND Ophthalmology
DX: H25.13 Age-related nuclear cataract, bilateral (principal); J44.9 Chronic obstructive pulmonary disease, unspecified; F32.9 Major depressive disorder, single episode, unspecified; I25.2 Old myocardial infarction; M51.26 Other intervertebral disc displacement, lumbar region; Z98.890 Other specified postprocedural states; Z86.718 Personal history of other venous thrombosis and embolism; Z86.711 Personal history of pulmonary embolism; Z91.041 Radiographic dye allergy status; Z88.1 Allergy status to other antibiotic agents; Z91.018 Allergy to other foods; Z88.8 Allergy status to other drugs, medicaments and biological substances; Z79.899 Other long term (current) drug therapy; Z90.49 Acquired absence of other specified parts of digestive tract
CPT/HCPCS: 66982; 66984; J2250; V2632

== ENCOUNTER 2020-02-29 15:44 | Emergency (ER) | payer MEDICARE, OTHER ==
[~2020-02-29] VITALS: Ht 160 cm; Wt 84.5 kg
[~2020-02-29 15:44] MED LIST changes: -ACETAMINOPHEN 500 MG TABLET PO PRN; -BALANCED SALT IRRIG SOLN NO.2 500 ML IO ONE; -BENZONATATE 100 MG CAPSULE. PO PRN; -BRIMONIDINE 0.2% OPHTH SOLUTION 5ML BOTTLE. OD ONE; -CEFUROXIME OPHTH 4 MG/0.4 ML SYRINGE. OD ONE; -CHONDROIT-SOD-HYALURONATE KIT. OD ONE; +CLIN300C8 PO; -CLIN300C9 PO; -IBUPROFEN 200 MG TABLET PO PRN; -IPRATRPIUM/ALBUTEROL 0.5/2.5MG 3 ML NEBU. NEB PRN; -IV RINGERS SOLUTION,LACTATED 1,000 ML IV SCH; -LIDO/EPI IN BSS OPHTH 2.7 ML SYRINGE. OD ONE; -LIDOCAINE 2% JELLY 6ML IN APPLICATOR. ONE; -MIDAZOLAM HCL PF 2 MG/2 ML VIAL. IV ONE; -ONDANSETRON PF 4 MG/2 ML VIAL. IV PRN; -PHENYLEPHRINE 10% OPHTH SOLUTION 5ML BOTTLE. OD PRN; -POVIDONE-IODINE 5% OPHTH SOLUTION 30ML BOTTLE. OD ONE; -POVIDONE-IODINE 5% OPHTH SOLUTION 30ML BOTTLE. OD PRN; -PROPARACAINE 0.5% OPHTH SOLUTION 15ML BOTTLE. OD ONE; -PROPARACAINE 0.5% OPHTH SOLUTION 15ML BOTTLE. OD PRN; -prednisoLONE ACETATE 1% OPHTH SUSPENSION 5ML BOTTLE. OD ONE
[2020-02-29 15:51] VITALS: BP 151/74
--- NOTE | 2020-02-29 16:15 | PHYS DOC ---
Past History Past Medical History: Anxiety, Asthma, COPD, Diabetes, DVT, Hypertension, [place], Other Past Surgical History: Cholecystectomy, Hysterectomy, Tonsillectomy, Other Additional Past Surgical Histo: moiz-en-y. right shoulder replacement Smoking: Non-smoker Alcohol Use: None Drug Use: None Adult General Chief Complaint Chief Complaint: LOWER EXTREMITY SWELLING [facility] HPI Patient is a 69-year-old female presenting from home for concern of left lower extremity cellulitis. She has had issues with bilateral lower extremities for cellulitis in the past and states she had similar findings of prior episodes today. Onset was 3 days ago and localized to her left lower leg. Patient reports initial area around her anterior murcia that has spread proximal involving posterior side of her leg as well and past 48 hours. She has had no fever, no other systemic signs of illness. She does have x1 area of inoculation that was a scrape on her posterior leg which might be the source of current infection. Patient does have history of blood clots, currently has an IVC in place and on Eliquis. No history of MRSA Review of Systems Review of Systems Fourteen body systems of review of systems have been reviewed. See HPI for pertinent positives and negative responses, other peña all other systems are negative, non-pertinent or non-contributory Allergies Allergies Allergies Coded Allergies Type Severity Reaction Last Updated Verified amoxicillin Allergy Severe Anaphylaxis 07/04/18 No venom-honey bee Allergy Severe Shortness of Air 07/25/15 Yes tree nut Allergy Intermediate SUDANESE WALNUTS 07/25/15 Yes I S O L A T I O N *CONTACT* Allergy Unknown 08/30/15 Yes Physical Exam Physical Exam Constitutional: Well developed, well nourished, no acute distress, non-toxic appearance. HENT: Normocephalic, atraumatic, bilateral external ears normal, oropharynx moist, no oral exudates, nose normal. Eyes: PERRLA, EOMI, conjunctiva normal, no discharge. Neck: Normal range of motion, no tenderness, supple, no stridor. Cardiovascular: Heart rate regular per monitor Lungs & Thorax: No respiratory distress or accessory muscle use, bilateral chest rise Abdomen: Abdomen soft, non-tender, bowel sounds present in all quadrants, no guarding or rebound, nonacute abdomen. Skin: Warm, dry, no rash. Left lower extremity clinically consistent with diagnosis of cellulitis localized to the anterior and posterior portions of her distal murcia with obvious source of inoculation on posterior calf without drainage, pus, concern for abscess or foreign body. Warm and tender to the touch Back: No tenderness, no CVA tenderness. Extremities: No tenderness, no cyanosis, no clubbing, ROM intact, no edema. Neurologic: Alert and oriented X 3, grossly normal motor & sensory function, no focal deficits noted. Psychologic: Affect normal, judgement normal, mood normal. Current Patient Data Vital Signs Vital Signs Date Time Temp Pulse Resp B/P (MAP) Pulse Ox O2 Delivery O2 Flow Rate FiO2 02/29/20 15:51 97.9 74 16 151/74 (99) 98 Room Air EKG EKG [] Radiology/Procedures Radiology/Procedures [] Heart Score HEART Score for Chest Pain: HEART Score for Chest Pain Response (Comments) Value History Slighlty/Non-Suspicious 0 Age > 65 2 Risk Factors >3 Risk Factors or Hx CAD 2 Total 4 Risk Factors: Risk Factors: DM, Current or recent (<one month) smoker, HTN, HLP, family history of CAD, obesity. Risk Scores: Risk Factors: DM, Current or recent (<one month) smoker, HTN, HLP, family history of CAD, obesity. Course & Med Decision Making Course & Med Decision Making Discussed with the patient all findings and diagnostic testing. I discussed most likely diagnosis of simple cellulitis, there is indication for oral antibiotics at present but no clinical indication for further diagnostic work-up or intervention while in ER. Patient was given antibiotic before departure and area was marked with marker for patient to monitor progress over the upcoming days. I stressed need for close outpatient follow-up to review today's ER visit. Strict return precautions were also discussed at length with good understanding by patient. Patient voiced understanding and agreement with the plan. Patient knows to come back for repeat evaluation if concerning signs or symptoms present prior to outpatient follow-up. Hemodynamically stable, ambulatory and well-appearing at time of disposition. Dragon Disclaimer Dragon Disclaimer This electronic medical record was generated, in whole or in part, using a voice recognition dictation system. Departure Departure: Impression: Primary Impression: Left leg cellulitis Disposition: 01 DC HOME SELF CARE/HOMELESS Condition: STABLE Referrals: SHARAD PADILLA MD (PCP) Patient Instructions: Cellulitis Additional Instructions: You were seen for an infection called cellulitis. We marked the area of redness for you to evaluate and ensure continued resolution prior to following up with your outpatient physician. If your redness spreads past the marked area at 24 hours you should have it evaluated again. You do not have an abscess right now but you could develop one. If so you will need to have it drained. You should return to the ED immediately if you develop worsening pain, fever, swelling, redness, drainage, any sign of abscess, or any other new or concerning symptoms. Take the entire course of antibiotics as prescribed. It was a pleasure to take care of you and I wish you the best going forward Scripts Cephalexin (KEFLEX) 500 Mg Capsule 500 MG PO QID for cellulitis for 7 Days, #28 TAB Prov: MOON HANLEY DO 02/29/20 MOON HANLEY DO Feb 29, 2020 16:15
[2020-02-29] MEDS ORDERED: CEPH-264 PO (16:18)
[2020-02-29] MEDS ORDERED: CEPHALEXIN 250 MG CAPSULE PO ONE (16:30)
== END 2020-02-29 17:07 | disposition home or self-care (01) ==
LOC: ER 15:44
DX: L03.116 Cellulitis of left lower limb (principal); F41.9 Anxiety disorder, unspecified; J44.9 Chronic obstructive pulmonary disease, unspecified; E11.9 Type 2 diabetes mellitus without complications; Z86.718 Personal history of other venous thrombosis and embolism; I10 Essential (primary) hypertension; I25.2 Old myocardial infarction; Z88.1 Allergy status to other antibiotic agents; Z91.030 Bee allergy status; Z91.018 Allergy to other foods
CPT/HCPCS: 99283

== ENCOUNTER → 2020-03-12 | Outpatient (CLI) | payer MEDICARE, OTHER ==
[2020-02-29 15:51] VITALS: BP 151/74
[~2020-03-12] MED LIST changes: +ATOR20TA PO; +BIMA2.5D EACHEYE; +CLIN150C15 PO; -CLIN300C8 PO; +CLIN300C9 PO; -LISI-338 PO; +LISI-517 PO
== END ==
LOC: LAB 09:30
PROVIDERS: ATTEND Nurse Anesthetist, Certified Registered
DX: Z01.812 Encounter for preprocedural laboratory examination (principal); H26.8 Other specified cataract; Z20.828 Contact with and (suspected) exposure to other viral communicable diseases
CPT/HCPCS: U0003

== ENCOUNTER → 2020-03-15 | Day surgery (SDC) | payer MEDICARE, OTHER ==
[~2020-03-15] MED LIST changes: +ACETAMINOPHEN 500 MG TABLET PO PRN; +BALANCED SALT IRRIG SOLN NO.2 500 ML IO ONE; +BENZONATATE 100 MG CAPSULE. PO PRN; +BRIMONIDINE 0.2% OPHTH SOLUTION 5ML BOTTLE. OS ONE; +CEFUROXIME OPHTH 4 MG/0.4 ML SYRINGE. OS ONE; +CHONDROIT-SOD-HYALURONATE KIT. OS ONE; -CLIN150C15 PO; +IBUPROFEN 200 MG TABLET PO PRN; +IPRATRPIUM/ALBUTEROL 0.5/2.5MG 3 ML NEBU. NEB PRN; +IV RINGERS SOLUTION,LACTATED 1,000 ML IV SCH; +LIDO/EPI IN BSS OPHTH 2.7 ML SYRINGE. OS ONE; +LIDOCAINE 2% JELLY 6ML IN APPLICATOR. ONE; +MIDAZOLAM HCL PF 2 MG/2 ML VIAL. IV ONE; +MIDAZOLAM HCL PF 2 MG/2 ML VIAL. ONE; +ONDANSETRON PF 4 MG/2 ML VIAL. IV PRN; +PHENYLEPHRINE 10% OPHTH SOLUTION 5ML BOTTLE. OS PRN; +POVIDONE-IODINE 5% OPHTH SOLUTION 30ML BOTTLE. OS ONE; +POVIDONE-IODINE 5% OPHTH SOLUTION 30ML BOTTLE. OS PRN; +PROPARACAINE 0.5% OPHTH SOLUTION 15ML BOTTLE. OS ONE; +PROPARACAINE 0.5% OPHTH SOLUTION 15ML BOTTLE. OS PRN; +prednisoLONE ACETATE 1% OPHTH SUSPENSION 5ML BOTTLE. OS ONE
[2020-03-15] MEDS: TROPICAMIDE 1% OPHTH SOLUTION 15ML BOTTLE. OS SCH ×3 (07:07→07:20)
[2020-03-15] MEDS: DICLOFENAC SODIUM 0.1% OPHTH SOLUTION 2.5ML BOTTLE. OS SCH ×2 (07:08→07:14)
[2020-03-15] MEDS: TOBRAMYCIN 0.3% OPHTH SOLUTION 5ML BOTTLE. OS SCH ×2 (07:08→07:14)
[2020-03-15] MEDS: PHENYLEPHRINE 2.5% OPHTH SOLUTION 2ML BOTTLE. OS SCH ×3 (07:08→07:20)
--- NOTE | 2020-03-15 08:20 | PDOC4 ---
SURGEON: Ernie Castañead MD Date of Procedure: 03/15/20 PREOP Diagnosis Visually significant cataract: Left Eye OS POSTOP Diagnosis Same PROCEDURE: Phaco w/ posterior chamber IOL: Left Eye OS ANESTHESIA Deep forniceal periocular 2% Lidocaine jelly Tania/retro bulbar block with 2% Lidocaine with 0.5% Marcaine DESCRIPTION OF PROCEDURE The risks, benefits, and alternatives were discussed with the patient who elected to proceed. Informed consent was obtained in writing and placed in the chart After anesthetizing the eye topically, the patient was taken to the operating room, and the operative eye was prepped and draped in the usual sterile fashion for ocular surgery. A wire lid speculum was placed. A 1-mm clear corneal paracentesis incision was created with the side-port blade at a position three o'clock hours clockwise from the temporal cornea. Then, 1% non-preserved Lidocaine with epinephrine was injected into the anterior chamber followed by viscoelastic. Cotton-tipped applicators were used to stabilize the globe, and a 2.4 mm keratome was used to create a self-sealing incision in clear cornea at the temporal limbus. The Utrata forceps were used to create a continuous curvilinear capsulorrhexis. Balanced saline solution was injected via cannula beneath the capsulorrhexis edge to hydrodissect the lens nucleus and cortex from the lens capsule. The phacoemulsification handpiece and a chopping instrument were then used to remove the lens nucleus. The remaining epinuclear material and cortex were removed with the irrigation/aspiration handpiece. Visc oelastic was used to re-inflate the lens capsule, and the intraocular lens was injected directly into the capsular bag. The corneal wound edges were hydrated with balanced salt solution on a cannula and the irrigation/aspiration handpiece was used to extract the remaining viscoelastic. Cefuroxime 0.1mg/ml / Vigamox 0.5% was injected into the anterior chamber intracamerally. The wounds were inspected and found to be watertight at an appropriate intraocular pressure. Topical antibiotic drops were placed on the corneal surface. LRI: No If Yes, Number [] [place] [] Length [] degrees Depth [] microns Incision [place]: 180 Toric Lens [place] [] Patch/shield with Maxitrol/Tobradex/Erythromycin ointment: Yes No Co-managed patients/postop examination stable for co-management with referring doctor. ERNIE CASTAÑEDA MD Mar 15, 2020 08:20
[2020-03-15 08:35] VITALS: BP 124/80
== END | disposition home or self-care (01) ==
LOC: SURG 06:26
PROVIDERS: ATTEND Ophthalmology
DX: H25.12 Age-related nuclear cataract, left eye (principal); J44.9 Chronic obstructive pulmonary disease, unspecified; F32.9 Major depressive disorder, single episode, unspecified; E03.9 Hypothyroidism, unspecified; M19.90 Unspecified osteoarthritis, unspecified site; D64.9 Anemia, unspecified; E11.36 Type 2 diabetes mellitus with diabetic cataract; E66.01 Morbid (severe) obesity due to excess calories; E78.00 Pure hypercholesterolemia, unspecified; M48.02 Spinal stenosis, cervical region; I11.0 Hypertensive heart disease with heart failure; I50.9 Heart failure, unspecified; I25.10 Atherosclerotic heart disease of native coronary artery without angina pectoris; I25.2 Old myocardial infarction; G44.319 Acute post-traumatic headache, not intractable; Z68.36 Body mass index [BMI] 36.0-36.9, adult; Z79.899 Other long term (current) drug therapy; Z79.84 Long term (current) use of oral hypoglycemic drugs; Z98.890 Other specified postprocedural states; Z88.6 Allergy status to analgesic agent; Z88.8 Allergy status to other drugs, medicaments and biological substances; Z91.030 Bee allergy status; Z90.710 Acquired absence of both cervix and uterus; Z86.718 Personal history of other venous thrombosis and embolism; Z85.828 Personal history of other malignant neoplasm of skin; Z80.1 Family history of malignant neoplasm of trachea, bronchus and lung; Z96.611 Presence of right artificial shoulder joint; Z87.440 Personal history of urinary (tract) infections; Z82.49 Family history of ischemic heart disease and other diseases of the circulatory system
CPT/HCPCS: 66984; J2250; V2632

== ENCOUNTER → 2020-04-04 | Outpatient (CLI) | payer MEDICARE, OTHER ==
[2020-03-15 08:35] VITALS: BP 124/80
[~2020-04-04] MED LIST changes: -ACETAMINOPHEN 500 MG TABLET PO PRN; -ATOR20TA PO; -BALANCED SALT IRRIG SOLN NO.2 500 ML IO ONE; -BENZONATATE 100 MG CAPSULE. PO PRN; -BIMA2.5D EACHEYE; -BRIMONIDINE 0.2% OPHTH SOLUTION 5ML BOTTLE. OS ONE; -CEFUROXIME OPHTH 4 MG/0.4 ML SYRINGE. OS ONE; -CHONDROIT-SOD-HYALURONATE KIT. OS ONE; -IBUPROFEN 200 MG TABLET PO PRN; -IPRATRPIUM/ALBUTEROL 0.5/2.5MG 3 ML NEBU. NEB PRN; -IV RINGERS SOLUTION,LACTATED 1,000 ML IV SCH; -LIDO/EPI IN BSS OPHTH 2.7 ML SYRINGE. OS ONE; -LIDOCAINE 2% JELLY 6ML IN APPLICATOR. ONE; +LISI-338 PO; -LISI-517 PO; -MIDAZOLAM HCL PF 2 MG/2 ML VIAL. IV ONE; -MIDAZOLAM HCL PF 2 MG/2 ML VIAL. ONE; -ONDANSETRON PF 4 MG/2 ML VIAL. IV PRN; -PHENYLEPHRINE 10% OPHTH SOLUTION 5ML BOTTLE. OS PRN; -POVIDONE-IODINE 5% OPHTH SOLUTION 30ML BOTTLE. OS ONE; -POVIDONE-IODINE 5% OPHTH SOLUTION 30ML BOTTLE. OS PRN; -PROPARACAINE 0.5% OPHTH SOLUTION 15ML BOTTLE. OS ONE; -PROPARACAINE 0.5% OPHTH SOLUTION 15ML BOTTLE. OS PRN; -prednisoLONE ACETATE 1% OPHTH SUSPENSION 5ML BOTTLE. OS ONE
--- NOTE | 2020-04-04 12:20 | RAD ---
INDICATION: Reason: RIGHT SHOULDER PAIN / Spl. Instructions: / History: COMPARISON: August 08, 2019 IMPRESSION: Right shoulder: 3 views obtained. Right shoulder arthroplasty changes is again seen. No evidence of d islocation. There are some ossifications within the soft tissues adjacent to the right shoulder again seen. No acute fracture line is identified. Electronically signed by: Waqas Carrasco MD (04/04/2020 12:18 PM) [id number]
== END ==
LOC: DXRAD 09:10
PROVIDERS: ATTEND Physician Assistant
DX: M25.511 Pain in right shoulder (principal); Z96.611 Presence of right artificial shoulder joint
CPT/HCPCS: 73030

== ENCOUNTER 2020-04-13 12:26 | Observation (INO) | payer MEDICARE, OTHER ==
[~2020-04-13] VITALS: Ht 160 cm; Wt 88.6 kg
[~2020-04-13 12:26] MED LIST changes: -LISI-338 PO; +LISI-517 PO
[2020-04-13] MEDS ORDERED: IV NORMAL SALINE 1,000ML 1,000 ML IV ONE (12:30)
--- NOTE | 2020-04-13 12:57 | RAD ---
EXAM: CT Head without IV contrast INDICATION: Reason: ams, syncope / Spl. Instructions: / History: TECHNIQUE: Multi-detector row CT images were obtained of the head without the use of IV contrast. All CT scans performed at this facility utilize dose optimization techniques as appropriate to the exam, including the following: Automated exposure control and adjustment of the mA and/or KV according to patient size (this includes techniques or standardized protocols for targeted exams where dose is ind ication/reason for exam). COMPARISON: None FINDINGS: BRAIN PARENCHYMA: No evidence of acute intraparenchymal hemorrhage or infarct. No abnormal parenchyma l density or mass. VENTRICLES & EXTRA-AXIAL SPACES: Ventricles are within normal limits. Basilar cisterns are patent. N o pathologic extra-axial fluid collection or mass. ORBITS: Orbital contents are unremarkable. SINUSES: Visualized paranasal sinuses and mastoid air cells are clear. OSSEOUS & SOFT TISSUES: Calvarium and skull base are intact. IMPRESSION: No acute intracranial pathology. Initial attempt at telephone contact made at 12:40 PM on 04/13/2020. Discussed with Dr. Richard Benedict by telephone via callback at 12:54 PM on 04/13/2020. Electronically signed by: Zain Monroe MD (04/13/2020 12:54 PM) [id number]
--- NOTE | 2020-04-13 12:58 | RAD ---
EXAM: XR CHEST 1V INDICATION: Reason: ams, syncope / Spl. Instructions: / History: . TECHNIQUE: Single view COMPARISON: 10/12/2019 chest x-ray FINDINGS: The heart size is normal. The great vessels appear unremarkable. There is no hilar or mediastinal mass. The lungs are clear. There is no pleural effusion or pneumothorax. Right reverse humeral arthroplasty is redemonstrated. No acute or aggressive appearing osseous lesion s seen. IMPRESSION: No active cardiopulmonary disease. Electronically signed by: Zain Monroe MD (04/13/2020 12:55 PM) [id number]
--- NOTE | 2020-04-13 13:13 | EKG ---
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
[2020-04-13 13:19] LABS: BARBITURATES NEG (NEG); BENZODIAZEPINES NEG (NEG); CANNABINOIDS NEG (NEG); COCAINE NEG (NEG); METHADONE NEG (NEG); OPIATES NEG (NEG); PHENCYCLIDINE NEG (NEG)
[2020-04-13 13:21] LABS: AMPHETAMINE/METHAMPHETAMINE NEG (NEG)
--- NOTE | 2020-04-13 13:22 | PHYS DOC ---
Past History Past Medical History: Anxiety, Asthma, COPD, Diabetes, DVT, Hypertension, [place], Other Past Surgical History: Cholecystectomy, Hysterectomy, Tonsillectomy, Other Additional Past Surgical Histo: moiz-en-y. right shoulder replacement Smoking: Non-smoker Alcohol Use: None Drug Use: None General Adult EDM: Chief Complaint: ALTERED MENTAL STATUS HPI: HPI: This is a pleasant 70-year-old female who presents the emergency department by EMS after having a syncopal episode with altered mental status. There was some concern for possible facial droop which was observed by bystanders however paramedics did not observe a facial droop. The patient has general weakness in her upper and lower extremities without unilaterality. She feels lightheaded. She is on Eliquis. She is oriented x3. She denies any pain. She reports taking her medications regularly and has not missed any. Onset today. Last known well is noon on 04/13. Review of systems negative for chest pain, shortness of breath, abdominal pain, fevers, neck pain or neck stiffness. All other review of systems negative. ED course: 70-year-old female presenting with a syncopal episode altered mental status and slurred speech. On arrival code stroke was initiated. Head CT negative. Patient is on Eliquis currently thus TPA is contraindicated. EKG obtained and reviewed by myself shows sinus rhythm with a regular rate. ST segments congruent. Not suggestive of acute ischemia. CBC unremarkable other than mild anemia of 10. Chemistry panel unremarkable. Troponin negative. Magnesium normal. UDS unremarkable. Urine analysis negative for infection. CT head negative. CT angiogram of the head and neck negative. Chest x-ray negative. On final examination at about 6 PM the patient speech is clear and the patient is oriented x3 still. NIH stroke scale of 0. I have arranged for the patient to be admitted to Dr. Bang who will admit the patient for TIA/stroke work-up. Current Medications: Current Meds: Current Medications Medications (Trade) Dose Ordered Sig/Lary Start Time Stop Time Status Last Admin Dose Admin Sodium Chloride 1,000 ml @ 1,000 mls/hr 1X ONCE 04/13/20 12:30 04/13/20 13:29 Allergies: Allergies: Allergies Coded Allergies Type Severity Reaction Last Updated Verified amoxicillin Allergy Severe Anaphylaxis 07/04/18 No venom-honey bee Allergy Severe Shortness of Air 07/25/15 Yes tree nut Allergy Intermediate PERSIAN WALNUTS 07/25/15 Yes I S O L A T I O N *CONTACT* Allergy Unknown 08/30/15 Yes Physical Exam: PE: Constitutional: Well developed, well nourished, no acute distress, non-toxic appearance. [] HENT: Normocephalic, atraumatic, bilateral external ears normal, oropharynx moist, no oral exudates, nose normal. [] Eyes: PERRLA, EOMI, conjunctiva normal, no discharge. [] Neck: Normal range of motion, no tenderness, supple, no stridor. [] Cardiovascular:Heart rate regular rhythm, no murmur [] Lungs & Thorax: Bilateral breath sounds clear to auscultation [] Abdomen: Bowel sounds normal, soft, no tenderness, no masses, no pulsatile masses. [] Skin: Warm, dry, no erythema, no rash. [] Back: No tenderness, no CVA tenderness. [] Extremities: No tenderness, no cyanosis, no clubbing, ROM intact, no edema. [] Neurologic: Alert and oriented X 3, normal motor function, normal sensory function, no focal deficits noted. [] Psychologic: Affect normal, judgement normal, mood normal. [] EKG: EKG: [] Radiology/Procedures: Radiology/Procedures: [] Heart Score: Risk Factors: Risk Factors: DM, Current or recent (<one month) smoker, HTN, HLP, family history of CAD, obesity. Risk Scores: Score 0 - 3: 2.5% MACE over next 6 weeks - Discharge Home Score 4 - 6: 20.3% MACE over next 6 weeks - Admit for Clinical Observation Score 7 - 10: 72.7% MACE over next 6 weeks - Early Invasive Strategies Course & Med Decision Making: Course & Med Decision Making Pertinent Labs and Imaging studies reviewed. (See chart for details) [] Dragon Disclaimer: Dragon Disclaimer: This electronic medical record was generated, in whole or in part, using a voice recognition dictation system. Departure Departure: Impression: Primary Impression: Dysphagia Additional Impression: Facial droop Disposition: ADMITTED INPT THIS HOSP Admitting Physician: Willie Bang Condition: STABLE Referrals: SHARAD PADILLA MD (PCP) NIHSS - ED NIH Stroke Scale: NIH Stroke Scale Response (Comments) Value Level of Consciousness: 0 Alert/Responsive 0 LOC Questions: 0 Answers both correctly 0 LOC Commands: 0 Performs both tasks 0 Best Gaze: 0 Normal 0 Visual: 0 No visual loss 0 Facial Palsy: 1 Minor paralysis 1 Motor - Left Arm 0 No drift 0 Motor - Right Arm 0 No drift 0 Motor - Left Leg 0 No drift 0 Motor: Right Leg 0 No drift 0 Limb Ataxia: 0 Absent 0 Sensory: 0 No loss 0 Best Language: 0 Normal 0 Dysathria: 1 Mild to moderate 1 Extinction and Inattention: 0 Normal 0 Total 2 NIHSS - ED NIH Stroke Scale: NIH Stroke Scale Response (Comments) Value Level of Consciousness: 0 Alert/Responsive 0 LOC Questions: 0 Answers both correctly 0 LOC Commands: 0 Performs both tasks 0 Best Gaze: 0 Normal 0 Visual: 0 No visual loss 0 Facial Palsy: 0 Normal, symmetrical 0 Motor - Left Arm 0 No drift 0 Motor - Right Arm 0 No drift 0 Motor - Left Leg 0 No drift 0 Motor: Right Leg 0 No drift 0 Limb Ataxia: 0 Absent 0 Sensory: 0 No loss 0 Best Language: 0 Normal 0 Dysathria: 0 Normal (at 6pm.) 0 Extinction and Inattention: 0 Normal 0 Total 0 Critical Care Time Critical care time spent was 45 minutes exclusive of procedures. Time was spent evaluating the patient, ordering the administration of medications, reevaluating the patient, discussing with the admitting provider and documenting. RODRÍGUEZ GILLIS MD Apr 13, 2020 13:22
[2020-04-13 13:27] LABS: BACTERIA,URINE 0 /HPF (0-FEW); BILIRUBIN,URINE NEG (NEG); CLARITY,URINE CLEAR; COLOR,URINE YELLOW; GLUCOSE,URINE NEG (NEG); NITRITE,URINE NEG (NEG); RBC,URINE 0 /HPF (0-2); SQUAMOUS EPITHELIAL CELL,UR FEW /LPF; UROBILINOGEN,URINE 0.2 mg/dL (0.2 mg/dL); WBC,URINE OCC /HPF (0-4)
[2020-04-13] MEDS ORDERED: CONTRAST GIVEN. MC PRN (14:00)
[2020-04-13] MEDS ORDERED: IOHEXOL 350 MG/ML 100 ML VIAL. IV ONE (14:00)
[2020-04-13 14:27] LABS: CALCIUM 8.2 mg/dL (8.5-10.1); CREATININE 0.8 mg/dL (0.6-1.0); GFR 70.5
[2020-04-13 14:37] LABS: HEMATOCRIT 32.9 % (36.0-47.0); HEMOGLOBIN 10.1 g/dL (12.0-15.5); MEAN CORPUSCULAR HEMOGLOBIN 23 pg (25-35); MEAN CORPUSCULAR HGB CONC 31 g/dL (31-37); MEAN CORPUSCULAR VOLUME 74 fL (79-100); PLATELET COUNT 268 x10^3/uL (140-400); RED BLOOD COUNT 4.48 x10^6/uL (3.50-5.40); RED CELL DISTRIBUTION WIDTH 18.1 % (11.5-14.5); WHITE BLOOD COUNT 4.5 x10^3/uL (4.0-11.0)
--- NOTE | 2020-04-13 14:48 | RAD ---
EXAM: CTA HEAD AND NECK W/WO CONTRAST DATE: 04/13/2020 2:28 PM INDICATION: slurred speech, facial droop TECHNIQUE: CTA angiogram of the head and neck was obtained after IV bolus administration of 75 cc of Omnipaque 300. The images were sent to workstation and multiplanar reconstructions were obtained. Mu ltiplanar reconstruction images to include MIP and 3-D reconstruction images are submitted. One or more of the following dose reduction techniques were utilized: Automated exposure control (AEC ), Adjustment of mA and/or kV according to patient size, Use of iterative reconstruction technique melissa ch as ASiR, CT scan done according to ALARA and image gently/image wisely COMPARISON: Noncontrast CT head done earlier today. FINDINGS: CTA Head: The visualized distal internal carotid arteries, anterior and middle cerebral arteries are patent and normal caliber. The distal vertebral arteries, basilar artery, and posterior cerebral arteries are p atent and normal caliber. No aneurysm or arteriovenous malformation is seen. CTA Neck: Right carotid: The right common carotid artery is patent and normal caliber. The carotid bifurcation is normal. No stenosis of the right internal carotid artery per NASCET criteria. The right external c arotid artery is patent. Left carotid: The left common carotid artery is patent and normal caliber. The carotid bifurcation is normal. No stenosis of the left internal carotid artery per NASCET criteria. The left external carot id artery is patent. Right vertebral: The right vertebral artery is patent and normal caliber. Left vertebral: The left vertebral artery is patent and normal caliber. The visualized portions of the aortic arch are normal. The origins of the brachiocephalic and subclav anjali arteries are normal. No cervical lymphadenopathy. The thyroid gland is normal. The parotid and submandibular glands are no rmal. The visualized aerodigestive tract is unremarkable. Mild multilevel degenerative disc height loss. Multilevel disc protrusions and marginal osteophytes r esults in multilevel spinal canal stenosis. Multilevel uncovertebral and facet arthrosis with multile oel neural foraminal narrowing. The visualized portions of the lungs are clear. IMPRESSION: 1. No intracranial large vessel occlusion. 2. No stenosis of the cervical carotid or vertebral arteries. PQRS Compliance Statement - Stenosis calculations for CT, MR and conventional angiography are based u jorgito measurement of the distal ICA diameter in accordance with the NASCET methodology. Electronically signed by: Phillip Turner MD (04/13/2020 2:45 PM) [facility]
[2020-04-13 18:44] VITALS: BP 113/70
--- NOTE | 2020-04-13 19:11 | HP ---
ADMIT DATE: 04/13/2020 ATTENDING PHYSICIAN: Dr. Vinson. CHIEF COMPLAINT: Altered mentation. HISTORY OF PRESENT ILLNESS: The patient is a 70-year-old female well known to us from previous admissions. She has multiple medical issues including diabetes, COPD and hypertension. She has chronic anxiety. She had a near syncopal episode at a local restaurant. She has some slurred speech. Code stroke was initiated. In the ED, she was noted to be taking Eliquis. TPA was contraindicated. CT head was unremarkable. She regained her mentation by the time she got up to the floor. She was ambulating independently with a walker. The NIH stroke scale is 0. She is alert and oriented. There is no focal deficit. Neurology consultation obtained. Dr. Caal will see her in consultation. She was admitted for observation overnight. PAST MEDICAL HISTORY: Significant for right shoulder replacement, cholecystectomy, hysterectomy, and tonsillectomy. There is a longstanding history of asthma, anxiety, COPD, type 2 diabetes, DVT, hypertension and degenerative arthritis. CURRENT MEDICATIONS: Reviewed. She was taking Eliquis 5 mg b.i.d., bupropion, cephalexin, Keflex, clonazepam, Lasix, Linzess, multivitamin, nitroglycerin, Spiriva, tramadol, albuterol, Risperdal and Topamax. ALLERGIES: NOTED TO AMOXICILLIN, TREE NUTS AND BEE VENOM. FAMILY HISTORY: Noncontributory. SOCIAL HISTORY: She had been a smoker in the past. She is not actively smoking. REVIEW OF SYSTEMS: No COVID exposure, fevers, chills, cough, congestion. She is still fairly alert. Lives independently. All other systems reviewed and turned to be negative. PHYSICAL EXAMINATION: GENERAL: When I saw her, the patient was very alert, speaking and walking independently. INITIAL VITAL SIGNS: Showed a blood pressure 121/62, pulse is 71 and regular. She is afebrile. HEENT: Head is without trauma. Pupils are reactive. Sclerae nonicteric. Oropharynx is clear. NECK: Supple, no bruits. LUNGS: Otherwise clear. CARDIOVASCULAR: Showed regular heart tones. No gallops. ABDOMEN: Soft, obese, protuberant. No organomegaly. EXTREMITIES: Without edema. NEUROLOGIC: Focally intact. Speech is fluent. Negative Romberg. Cardiovascular Lab Director were intact symmetrically. No facial droop. She ambulated independently without any gait ataxia. SKIN: Warm and dry. PERTINENT LABORATORY AND X-RAY STUDIES: Imaging studies showed no acute fractures or stroke. Hemoglobin is 10.1 g/dL, white count 4500. Chemistry panel is unremarkable. Nonfasting blood sugar is 139. Cardiac enzymes negative for coronary ischemia. ASSESSMENT: 1. This 70-year-old female has had a syncopal episode whether this s near syncope or true syncope remains to be seen. 2. __ episode of neurological deficit has since resolved. I suspect perhaps a transient ischemic attack. 3. Underlying anxiety with depression. 4. Irritable bowel syndrome. 5. Chronic obstructive pulmonary disease. 6. Hypertension. PLAN: 1. Observation status. 2. Continue home meds. 3. Diet as tolerated. 4. Neurology consultation has been entertained. SARWAT VINSON MD DR: FAB/christopher JOB#: [id number] / [id number]
[2020-04-13 20:21] LABS: PLT ESTIMATE ADEQUATE (ADEQUATE)
[2020-04-13 20:22] LABS: ANISOCYTOSIS SLIGHT; HYPOCHROMIA MOD
[2020-04-13 23:00] VITALS: BP 94/55
[2020-04-14] MEDS ORDERED: CARB15DR3 EACHEYE (04:06)
[2020-04-14] MEDS ORDERED: ATOR20TA PO (04:06)
[2020-04-14] MEDS ORDERED: BIMA2.5D EACHEYE (04:06)
[2020-04-14] MEDS ORDERED: CYCL-331 PO (04:06)
[2020-04-14 07:48] VITALS: BP 132/81
[2020-04-14 07:58] LABS: BASO # 0.1 x10^3/uL (0.0-0.2); BASO % 1 % (0-3); EOS # 0.2 x10^3/uL (0.0-0.7); EOS % 3 % (0-3); HEMATOCRIT 35.8 % (36.0-47.0); HEMOGLOBIN 10.8 g/dL (12.0-15.5); LYMPH % 45 % (24-48); MEAN CORPUSCULAR HEMOGLOBIN 23 pg (25-35); MEAN CORPUSCULAR HGB CONC 30 g/dL (31-37); MEAN CORPUSCULAR VOLUME 74 fL (79-100); MONO # 0.7 x10^3/uL (0.0-1.1); MONO % 10 % (0-9); NEUT # 2.7 x10^3uL (1.8-7.7); NEUT % 40 % (31-73); PLATELET COUNT 235 x10^3/uL (140-400); RED BLOOD COUNT 4.81 x10^6/uL (3.50-5.40); RED CELL DISTRIBUTION WIDTH 18.4 % (11.5-14.5); WHITE BLOOD COUNT 6.6 x10^3/uL (4.0-11.0)
[2020-04-14 08:03] LABS: CALCIUM 8.3 mg/dL (8.5-10.1); CREATININE 0.8 mg/dL (0.6-1.0); GFR 70.5
[2020-04-14 09:31] LABS: % ATYL 1 % (0-0); % BASOS 1 % (0-3); % EOS 6 % (0-5); % LYMPHS 44 % (24-48); % MONOS 11 % (0-10); % SEGS 37 % (35-66); PLT ESTIMATE ADEQUATE (ADEQUATE)
[2020-04-14 09:32] LABS: OVALOCYTES FEW; TEAR DROP CELLS OCC
[2020-04-14 09:33] LABS: ANISOCYTOSIS SLIGHT; HYPOCHROMIA SLIGHT; MICROCYTOSIS SLIGHT; POLYCHROMASIA PRESENT
--- NOTE | 2020-04-14 09:52 | PN ---
DATE: 04/14/2020 ATTENDING PHYSICIAN: Dr. Vinson. SUBJECTIVE: The patient is under a lot of stress at home. She has no further neurologic deficits. She is better. OBJECTIVE FINDINGS: VITAL SIGNS: Blood pressure is 132/81 mmHg. She is afebrile, heart rate 71, oxygen saturation 98% on room air. HEENT: Head is without trauma. Pupils are reactive. Sclerae nonicteric. Oropharynx clear. NECK: Supple. LUNGS: Clear. CARDIOVASCULAR: Regular heart tones. ABDOMEN: Soft. EXTREMITIES: Without edema. NEUROLOGIC: Her facial muscles were intact. Cranial nerves were intact. Speech is fluent. Earth Sciences Professor intact and symmetrical. Ecidcw-ntnw-[id number] negative. No focal deficits. ASSESSMENT: 1. A 70-year-old female with TIA symptoms, resolved. 2. Chronic anticoagulation. 3. Type 2 diabetes. 4. Chronic obstructive pulmonary disease. 5. Underlying anxiety with depression. PLAN: 1. Continue Eliquis as ordered. 2. Diet as tolerated. 3. Neurology consultation. 4. Discharge planning after Neurology evaluation. SARWAT VINSON MD DR: FAB/christopher JOB#: [id number] / [id number]
[2020-04-14] MEDS ORDERED: NITROGLYCERIN SUBLINGUAL 0.4 MG BOTTLE OF 25. SL PRN (10:15)
[2020-04-14] MEDS ORDERED: POLYVINYL ALCOHOL/POVIDONE/PF OPHTH SOLUTION DROPERETTE. OU PRN (10:30)
[2020-04-14 10:36] VITALS: BP 130/57
[2020-04-14] MEDS: CYCLOBENZAPRINE 10 MG TABLET. PO SCH (10:44)
[2020-04-14] MEDS: APIXABAN 5 MG TABLET. PO SCH ×2 (10:45→20:35)
[2020-04-14] MEDS: FUROSEMIDE 20 MG TABLET PO SCH (10:53)
[2020-04-14] MEDS: LUBIPROSTONE 24 MCG CAPSULE PO SCH ×2 (10:53→20:34)
[2020-04-14] MEDS: clonazePAM 2 MG TABLET PO SCH (10:54)
[2020-04-14] MEDS: MULTIVITAMIN with MINERAL TABLET. PO SCH (10:54)
[2020-04-14] MEDS: buPROPion SR 150 MG TABLET.SA PO SCH (10:54)
[2020-04-14] MEDS: traMADol 50 MG TABLET PO SCH ×2 (10:54→20:34)
[2020-04-14] MEDS ORDERED: METF500T16 PO (11:01)
[2020-04-14] MEDS: IPRATRPIUM/ALBUTEROL 0.5/2.5MG 3 ML NEBU. NEB SCH ×3 (12:00→22:00)
--- NOTE | 2020-04-14 14:36 | CONS ---
DATE OF CONSULTATION: NEUROLOGY CONSULTATION REFERRING PHYSICIAN: Dr. Bang. REASON FOR CONSULTATION: Altered mental status. HISTORY OF PRESENT ILLNESS: This is a 70-year-old right-handed female who was admitted through Emergency Room after she presented with chief complaints of a sudden onset of loss of consciousness lasted 1-2 minutes. According to the patient, she was in a local restaurant, and all of a sudden, she was found to have mild facial droop. She felt weaker in the upper and lower extremities with some dizziness described as lightheadedness; however, she stated she would have same feeling of dizziness after she changed her body positions quickly or when she tried to brass pickler some things off the floor. She describes also mild global headaches. Otherwise, she denies chest pain, shortness of breath or palpitation, dysarthria, or dysphagia. On arrival to Emergency Room yesterday, her blood pressure was 130/66. Initial nonenhanced head CT scan revealed no acute intracranial process. CT angio of the head and neck revealed no significant abnormalities. The patient was admitted for further evaluation. PAST MEDICAL HISTORY: Significant for COPD, anxiety, asthma, diabetes type 2, DVT, hypertension, and arthritis. PAST SURGICAL HISTORY: Positive for right shoulder replacement, cholecystectomy, hysterectomy, and tonsillectomy. FAMILY HISTORY: Noncontributory. CURRENT HOME MEDICATIONS: Eliquis for DVT 5 mg b.i.d., bupropion for anxiety and depression, Keflex, clonazepam, Lasix, multivitamins, nitroglycerin, Spiriva, tramadol, Topamax, and Risperdal. ALLERGIES: AMOXICILLIN, NUTS, AND BEE VENOM. SOCIAL HISTORY: The patient is . She used to be a smoker in the past. She denies alcohol drinking or illicit drug use. REVIEW OF SYSTEMS: A 10-point review of system was performed as mentioned above in history of present illness. PHYSICAL EXAMINATION: GENERAL: Well-developed, well-nourished female in no acute distress. She weighs 88.6 kilos. VITAL SIGNS: Blood pressure now is 113/70, respiratory rate 20, pulse is 59 regular, oxygen saturation 100%, and temperature is 97.4. HEENT: Normocephalic, atraumatic, otherwise unremarkable. NECK: Supple. Negative for carotid bruit, lymphadenopathy, or thyromegaly. LUNGS: Clear to A and P. CARDIOVASCULAR: Regular rate and rhythm, normal S1, S2. ABDOMEN: Soft. Bowel sounds positive. There is no palpable mass, organomegaly, or tenderness. EXTREMITIES: Negative for cyanosis, clubbing, or pitting edema. NEUROLOGIC: Mental status: The patient is alert and oriented x 3. Speech is fluent. There is no language dysfunction. Memory, judgment, and abstract thinking are normal. The patient denies hallucination or delusion. Cranial Nerves: Visual sharp are full. The pupils are reactive to light and accommodation. The extraocular movements are intact. There is no nystagmus. There is no facial motor or sensory deficit. Hearing is intact bilaterally. The palate is elevated symmetrically. The sternocleidomastoid muscles are powerful bilaterally. The patient shrugs her shoulders symmetrically, protrudes her tongue in the midline without fasciculation or atrophy. Motor Examination: No focal muscle bulk was seen. The tone is normal. The strength is 5/5 throughout. Sensory Examination: Revealed normal pinprick, light touch, vibratory, and position senses. Deep tendon reflexes were symmetric and hypoactive with absent Achilles responses. Gait and coordination are normal. LABORATORY DATA: CBC revealed white blood cells of 6.6 thousand, hemoglobin 10.8, hematocrit 35.8, platelet count 235,000. Chemistry: Sodium 139, potassium 4, chloride 107, CO2 of 24, BUN is 15, creatinine 0.8, glucose 87, and calcium 8.2. DIAGNOSTIC DATA: CT angio and x-ray as described above. IMPRESSION: 1. Possible transient ischemic attack versus presyncope or syncopal episode without significant neurological residuals. 2. Multiple medical problems include hypertension, diabetes mellitus, anxiety, and generalized arthritis RECOMMENDATIONS: 1. The patient has been on Eliquis for DVT. 2. Continue with current home medications. 3. Continue with current management initiated by Dr. Bang. M Radha AKHTAR MD DR: SHAHZAD/christopher JOB#: [id number] / [id number]
[2020-04-14 15:28] VITALS: BP 117/53
[2020-04-14] MEDS: metFORMIN 500 MG TABLET PO SCH ×2 (17:06→17:08)
[2020-04-14 19:17] VITALS: BP 119/73
[2020-04-14] MEDS ORDERED: LATANOPROST 0.005% OPHTH SOLUTION 2.5ML BOTTLE. OU SCH (21:00)
[2020-04-14] MEDS ORDERED: ATORVASTATIN CALCIUM 20 MG TABLET PO SCH (21:00)
[2020-04-15 00:02] VITALS: BP 108/66
[2020-04-15 05:15] VITALS: BP 127/79
[2020-04-15] MEDS: IPRATRPIUM/ALBUTEROL 0.5/2.5MG 3 ML NEBU. NEB SCH ×2 (06:08→09:30)
[2020-04-15] MEDS: metFORMIN 500 MG TABLET PO SCH (06:22)
[2020-04-15] MEDS: CYCLOBENZAPRINE 10 MG TABLET. PO SCH (09:00)
[2020-04-15] MEDS: LUBIPROSTONE 24 MCG CAPSULE PO SCH (09:00)
[2020-04-15] MEDS ORDERED: NON FORMULARY ITEM (Tiotropium Bromide (Spiriva) 2 PUFF) IH SCH (09:00)
[2020-04-15] MEDS: buPROPion SR 150 MG TABLET.SA PO SCH (09:00)
[2020-04-15] MEDS: APIXABAN 5 MG TABLET. PO SCH (09:00)
[2020-04-15] MEDS: clonazePAM 2 MG TABLET PO SCH (09:01)
[2020-04-15] MEDS: traMADol 50 MG TABLET PO SCH (09:01)
[2020-04-15] MEDS: MULTIVITAMIN with MINERAL TABLET. PO SCH (09:01)
[2020-04-15] MEDS: FUROSEMIDE 20 MG TABLET PO SCH (09:01)
[2020-04-15] MEDS ORDERED: oxyCODONE/APAP 10/325 1 TAB TABLET PO ONE (09:30)
--- NOTE | 2020-04-15 11:37 | DS ---
DATE OF DISCHARGE: 04/15/2020 ATTENDING PHYSICIAN: Dr. Vinson. FINAL DISCHARGE DIAGNOSES: 1. Transient ischemic attack, symptom resolved. 2. Chronic anticoagulation. 3. Type 2 diabetes. 4. Chronic obstructive pulmonary disease. 5. Underlying anxiety with depression. HISTORY OF PRESENT ILLNESS: The patient is a 70-year-old female. She was admitted with symptoms of facial droop. She had a near syncopal episode at a local restaurant. There is a significant underlying anxiety and depression, which contributes to the total picture. She has also had a history of migraines, which I believe are tension headaches. She has seen Dr. Caal many times in the past. PHYSICAL EXAMINATION: Please see the dictated note. PERTINENT LABORATORY AND X-RAY STUDIES: The obligatory imaging studies showed no acute strokes or bleeds in the CT of the head. There is no acute intracranial pathology. CT angiogram showed no intracranial large vessel occlusion. Hemoglobin is maintained at 10.8 g/dL with white count of 6600. Electrolytes, BUN and creatinine all within normal range. Troponin levels were nonischemic. COURSE IN THE HOSPITAL: The patient was admitted. Her symptoms resolved. She had no further neurologic deficit. Her Eliquis was continued. Dr. Caal saw her in consultation regarding her symptoms of TIAs and his recommendation is on the chart. She did well. I examined. Her speech was fluent. No focal deficits. Facial droop had subsided. Whether this was a real or whether it was related to other issues remains missing. On the third hospital day, she was stable, she was discharged home with no changes in her medication. She should continue her Eliquis 5 mg b.i.d., Lipitor, Lumigan eye drops, BuSpar, clonazepam p.r.n., Flexeril, Lasix, Linzess, metformin, nitroglycerin p.r.n., and Topamax dose unchanged. I also wrote her a script for some p.r.n. Percocet as needed for pain, 10 mg every 6 hours. She was discharged then from our hospital in stable condition with explicit written instruction on followup care. SARWAT VINSON MD DR: FAB/christopher JOB#: [id number] / [id number]
--- NOTE | 2020-04-15 12:35 | PN ---
DATE: SUBJECTIVE: The patient denies any new medical or neurological complaints. OBJECTIVE: GENERAL: A well-developed, well-nourished female, not in acute distress. VITAL SIGNS: Blood pressure is 127/79, respiratory rate 16, pulse is 63 and regular, temperature 97.6, oxygen saturation 96% on room air. HEENT: Normocephalic, atraumatic, otherwise unremarkable. NECK: Supple. Negative for carotid bruit, lymphadenopathy or thyromegaly. LUNGS: Clear to A and P. CARDIOVASCULAR: Regular rhythm, normal S1, S2. ABDOMEN: Soft. Bowel sounds positive. EXTREMITIES: Negative for cyanosis, clubbing or pitting edema. NEUROLOGICAL: Normal mental status and intact cranial nerves. There is no focal motor or sensory deficit. Deep tendon reflexes were symmetric and hypoactive with absent Achilles responses. Gait and coordination are normal. IMPRESSION: 1. Possible transient ischemic attack versus syncope or presyncope without significant neurological residuals. 2. Multiple psychiatric problems include anxiety, hypertension, diabetes mellitus and generalized arthritis. RECOMMENDATION: Continue with current home medications and current medical care. M Radha AKHTAR MD DR: SHAHZAD/christopher JOB#: [id number] / [id number]
== END 2020-04-15 13:13 | disposition home or self-care (01) ==
LOC: ER 12:26 → 1 SOUTH 14:05
PROVIDERS: ADMIT Hospitalist; ATTEND Hospitalist
DX: G45.9 Transient cerebral ischemic attack, unspecified (principal); J44.9 Chronic obstructive pulmonary disease, unspecified; E11.9 Type 2 diabetes mellitus without complications; F41.9 Anxiety disorder, unspecified; F32.9 Major depressive disorder, single episode, unspecified; R79.1 Abnormal coagulation profile; F41.8 Other specified anxiety disorders; K58.9 Irritable bowel syndrome, unspecified; I10 Essential (primary) hypertension; R13.10 Dysphagia, unspecified; R29.810 Facial weakness; D64.9 Anemia, unspecified; R29.700 NIHSS score 0; M13.0 Polyarthritis, unspecified; Z79.01 Long term (current) use of anticoagulants; Z87.891 Personal history of nicotine dependence; Z96.611 Presence of right artificial shoulder joint; Z90.710 Acquired absence of both cervix and uterus; Z90.49 Acquired absence of other specified parts of digestive tract; Z98.891 History of uterine scar from previous surgery; Z79.899 Other long term (current) drug therapy
CPT/HCPCS: 36415; 70450; 70496; 70498; 71045; 80048; 80307; 81001; 82947; 83735; 84484; 85007; 85025; 85027; 85610; 85730; 93005; 96360; 99285; G0378; G0480; J7030; G0379

== ENCOUNTER 2020-06-12 09:50 | Emergency (ER) | payer MEDICARE, OTHER ==
[~2020-06-12] VITALS: Ht 160 cm; Wt 88.6 kg
[~2020-06-12 09:50] MED LIST changes: +ATOR20TA PO; +BIMA2.5D EACHEYE
[2020-06-12] MEDS ORDERED: ACETAMINOPHEN 500 MG TABLET PO ONE (11:00)
[2020-06-12] MEDS ORDERED: LIDOCAINE 1%/EPI 1:100,000 20 ML VIAL. IJ ONE (11:45)
--- NOTE | 2020-06-12 12:31 | RAD ---
XR RT TIBIA+FIBULA Clinical Indication: Reason: RAN INTO BRICK BLOCK, DISTAL TIB INJURY / Spl. Instructions: / History: Comparison: None. Findings: No acute fracture of the tibia or fibula is identified. There is pretibial lucency distally that may be the site of injury. No soft tissue swelling is seen. There is diffuse subcutaneous edema. No radio paque foreign body is identified. There are mild arterial calcifications. There are degenerative spear ges of the knee and the ankle. There are calcaneal bone spurs that are small. IMPRESSION: No acute fracture. Electronically signed by: Horacio Linton MD (06/12/2020 12:28 PM) [id number]
--- NOTE | 2020-06-12 12:34 | PHYS DOC ---
Past History Past Medical History: Anxiety, GA, TIA, Other Additional Past Medical Histor: DVT Past Surgical History: Cholecystectomy, Hysterectomy, Tonsillectomy, Other Additional Past Surgical Histo: moiz-en-y. right shoulder replacement Smoking: Non-smoker Alcohol Use: Rarely Drug Use: None Adult General Chief Complaint Chief Complaint: LACERATION/AVULSION HPI HPI Patient is a 70-year-old female presents emergency department complaining of right lower murcia pain with laceration. Patient states that approximately 930 she was at a restaurant and she walked into a cement block that is inside the restaurant and lacerated her right murcia. Patient states she did not fall. Patient currently complains of a 7.5/10 pain on a 1-10 pain scale. Patient reports her last tetanus shot was 4-1/2 years ago. Patient states she has not taken anything for the pain today. Patient denies any other physical complaints or physical concerns. Patient favored right lower extremity when ambulating into emergency department and from wheelchair to bed. Review of Systems Review of Systems 14 body systems of review of systems have been reviewed. See HPI for pertinent positives and negative responses, otherwise all other systems are negative, nonpertinent or noncontributory. Current Medications Current Medications Current Medications Medications (Trade) Dose Ordered Sig/Lary Start Time Stop Time Status Last Admin Dose Admin Acetaminophen (Tylenol) 1,000 mg 1X ONCE 06/12/20 11:00 06/12/20 11:02 DC 06/12/20 11:23 1,000 MG Lidocaine/ Epinephrine (Xylocaine 1%-Epi 1:100,000) 20 ml 1X ONCE 06/12/20 11:45 06/12/20 11:48 DC 06/12/20 12:15 20 ML Allergies Allergies Allergies Coded Allergies Type Severity Reaction Last Updated Verified amoxicillin Allergy Severe Anaphylaxis 07/04/18 No venom-honey bee Allergy Severe Shortness of Air 07/25/15 Yes tree nut Allergy Intermediate [place] WALNUTS 07/25/15 Yes I S O L A T I O N *CONTACT* Allergy Unknown 08/30/15 Yes Physical Exam Physical Exam Constitutional: Well developed, well nourished, no acute distress, non-toxic appearance. HENT: Normocephalic, atraumatic, bilateral external ears normal, oropharynx moist, no oral exudates, nose normal. Eyes: PERRLA, EOMI, conjunctiva normal, no discharge. Neck: Normal range of motion, no tenderness, supple, no stridor. Cardiovascular:Heart rate regular rhythm, no murmur Lungs & Thorax: Bilateral breath sounds clear to auscultation Abdomen: Bowel sounds normal, soft, no tenderness, no masses, no pulsatile masses. Skin: Warm, dry, no erythema, no rash. Back: No tenderness, no CVA tenderness. Extremities: No tenderness, no cyanosis, no clubbing, ROM intact, no edema. Except for right lower extremity, distal tibial skin surface has 4 cm laceration, the bone is not visible, adipose tissue visible through laceration. Bleeding is controlled with bandage. Bruising around laceration appreciated. No bony deformity, bony crepitus, or distal swelling appreciated. Distal cap refill less than 2 seconds, 2+ posterior tibial and dorsalis pedis pulses. No loss of sensation distal to laceration. Full AROM/PROM of ankle and foot on the right. Neurologic: Alert and oriented X 3, normal motor function, normal sensory function, no focal deficits noted. [] Psychologic: Affect normal, judgement normal, mood normal. [] Current Patient Data Vital Signs Vital Signs Date Time Temp Pulse Resp B/P (MAP) Pulse Ox O2 Delivery O2 Flow Rate FiO2 06/12/20 10:13 99.2 89 16 154/60 (91) 100 Room Air EKG EKG [] Radiology/Procedures Radiology/Procedures PATIENT: HIREN LOUIS ACCOUNT: [id number] : 1950 LOCATION: ER AGE: 70 SEX: F EXAM STATUS: REG ER ORD. PHYSICIAN: CRISTY MCGREGOR APRN REASON: RAN INTO BRICK BLOCK, DISTAL TIB INJURY PROCEDURE: TIBIA FIBULA RIGHT XR RT TIBIA+FIBULA Clinical Indication: Reason: RAN INTO BRICK BLOCK, DISTAL TIB INJURY / Spl. Instructions: / History: Comparison: None. Findings: No acute fracture of the tibia or fibula is identified. There is pretibial lucency distally that may be the site of injury. No soft tissue swelling is seen . There is diffuse subcutaneous edema. No radiopaque foreign body is identified. There are mild arterial calcifications. There are degenerative changes of the knee and the ankle. There are calcaneal bone spurs that are small. IMPRESSION: No acute fracture. Electronically signed by: Horacio Linton MD (06/12/2020 12:28 PM) [id number] DICTATED AND SIGNED BY: HORACIO LINTON MD DATE: 06/12/20 1223 CC: CRISTY MCGREGOR APRN; JOHN MURRAY MD; SHARAD PADILLA MD ~MTH0 0 Heart Score C/O Chest Pain: No Risk Factors: Risk Factors: DM, Current or recent (<one month) smoker, HTN, HLP, family history of CAD, obesity. Risk Scores: Risk Factors: DM, Current or recent (<one month) smoker, HTN, HLP, family history of CAD, obesity. Course & Med Decision Making Course & Med Decision Making Pertinent Labs and Imaging studies reviewed. (See chart for details) 68-year-old female, vital signs reviewed, presents emergency department concerning right lower leg laceration. Please see laceration repair note. The patient's tetanus status was up-to-date prior to arrival to the emergency department today. An x-ray was ordered to rule out bony fracture. X-ray read negative for acute fracture, no concerning findings per radiologist interpretation. Discussed with patient suture care instructions, sutures out in 7 to 10 days with primary care, return ER precautions or concerns. Ice and elevation for the next 24 to 48 hours. Patient gave verbal understanding of discharge home instructions, suture/wound care, ice and elevation instructions, suture removal in 7 to 10 days at primary care physician, return to ER precautions or concerns, patient was discharged home without incident. Patient had no further questions or concerns. Dragon Disclaimer Dragon Disclaimer This electronic medical record was generated, in whole or in part, using a voice recognition dictation system. Departure Departure: Impression: Primary Impression: Laceration of right lower leg without complication Additional Impression: Contusion of right lower leg, initial encounter Disposition: 01 DC HOME SELF CARE/HOMELESS Condition: GOOD Referrals: SHARAD PADILLA MD (PCP) Patient Instructions: Laceration Care, Adult Additional Instructions: You were seen today for a laceration of your right leg. The x-ray that was performed did not show any concerning signs of fracture to your bones. I placed 11 sutures that will require removal in 7 to 10 days. Please follow with your primary care doctor to have them removed in 7 to 10 days. I have attached suture care instructions to this document, please review. Please elevate your right leg and use ice 30 minutes on 30 minutes off for the next 24 to 48 hours to minimize bruising and discomfort. You can use [id number] Tylenol for discomfort. Please return to the emergency department for worsening symptoms or other concerns. You indicated your last tetanus shot was 4-1/2 years ago, use did not require an update of your tetanus status immunization today. EMERGENCY DEPARTMENT GENERAL DISCHARGE INSTRUCTIONS Thank you for coming to [facility] (ED) today and trusting us with you care. We trust that you had a positivie experience in our Emergency Department. If you wish to speak to the department management, you may call the director at [phone]. YOUR FOLLOW UP INSTRUCTIONS ARE FOLLOWS: 1. Do you have a private Doctor? If you do not have a private doctor, please ask for a resource list of physicians or clinics that may be able to assist you with follow up care. 2. The Emergency Physician has interpreted your x-rays. The X-Ray specialist will also review them. If there is a change in the findings, you will be notified in 48 hours when at all possible. 3. A lab test or culture has been done, your results will be reviewed and you will be notified if you need a change in treatment. ADDITIONAL INSTRUCTIONS AND INFORMATION: 1. Your care today has been supervised by a physician who is specially trained in emergency care. Many problems require more than one evaluation for a complete diagnosis and treatment. We recommend that you schedule your follow up appointment as recommended to ensure complete treatment of you illness or injury. If you are unable to obtain follow up care and continue to have a problem, or if your condition worsens, we recommend that you return to the ED. 2. We are not able to safely determine your condition over the phone nor are we able to give sound medical advice over the phone. For these safety reasons, if you call for medical advice we will ask you to come to the ED for further evaluation. 3. If you have any questions regarding these discharge instructions please call the ED at [phone]. SAFETY INFORMATION: In the interest of safety, wellness, and injury prevention; we encourage you to wear your sealbelt, if you smoke; quite smoking, and we encourage family to use a protective helmet for bicycling and other sporting events that present an increased risk for head injury. IF YOUR SYMPTOMS WORSEN OR NEW SYMPTOMS DEVELOP, OR YOU HAVE CONCERNS ABOUT YOUR CONDITION; OR IF YOUR CONDITION WORSENS WHILE YOU ARE WAITING FOR YOUR FOLLOW UP APPOINTMENT; EITHER CONTACT YOUR PRIMARY CARE DOCTOR, THE PHYSICIAN WHOSE NAME AND NUMBER YOU WERE GIVEN, OR RETURN TO THE ED IMMEDIATELY. Laceration Repair Lac Repair Indication: [] Laceration right distal anterior murcia. Procedure: The patient was placed in the appropriate position and anesthesia around the laceration was achieved with 6 cc of 1% lidocaine with epinephrine. The area was then cleansed with Betadine solution, 240 cc pressurized normal saline, the wound was explored, no foreign bodies appreciated. The laceration was closed with 11 each interrupted sutures using 5-0 nylon. The laceration repair was dressed with bacitracin ointment and bandaged per ED nursing staff. Total repaired wound length: 4 cm in length. The patient tolerated the procedure well, there were no complications. Problem Qualifiers Primary Impression: Laceration of right lower leg without complication Encounter type: initial encounter Qualified Codes: S81.811A - Laceration without foreign body, right lower leg, initial encounter CRISTY MCGREGOR APRN Jun 12, 2020 12:33
[2020-06-12] MEDS ORDERED: BACITRACIN ZINC TOPICAL OINT PACKET. TP ONE (13:15)
[2020-06-12 13:25] VITALS: BP 134/57
== END 2020-06-12 13:25 | disposition home or self-care (01) ==
LOC: ER 09:50
DX: S81.811A Laceration without foreign body, right lower leg, initial encounter (principal); I25.2 Old myocardial infarction; Z86.73 Personal history of transient ischemic attack (TIA), and cerebral infarction without residual deficits; Z86.718 Personal history of other venous thrombosis and embolism; Y28.8XXA Contact with other sharp object, undetermined intent, initial encounter; Y93.01 Activity, walking, marching and hiking; Y92.511 Restaurant or cafe as the place of occurrence of the external cause; Y99.8 Other external cause status
CPT/HCPCS: 12002; 73590; 99283

== ENCOUNTER 2020-06-22 08:34 | Emergency (ER) | payer MEDICARE, OTHER ==
[~2020-06-22] VITALS: Ht 160 cm; Wt 88.6 kg
[2020-06-22 08:35] VITALS: BP 134/57
--- NOTE | 2020-06-22 10:08 | PHYS DOC ---
Past History Past Medical History: Anxiety, ID, TIA, Other Additional Past Medical Histor: DVT Past Surgical History: Cholecystectomy, Hysterectomy, Tonsillectomy, Other Additional Past Surgical Histo: moiz-en-y. right shoulder replacement Smoking: Non-smoker Alcohol Use: Rarely Drug Use: None General Adult EDM: Chief Complaint: SUTURE/STAPLE REMOVAL HPI: HPI: Patient is a 11-year-old female presenting for suture removal. Patient states she had sutures placed in her right murcia 10 days ago. Followed up with a [facility] care provider 2 days ago but he did not think that the symptoms were very to be removed. He is unable to see her today. She denies any worsening pain, redness, drainage. No other complaints. Otherwise been well. Review of Systems: Review of Systems: All other systems within normal limits except for as noted in the HPI Allergies: Allergies: Allergies Coded Allergies Type Severity Reaction Last Updated Verified amoxicillin Allergy Severe Anaphylaxis 07/04/18 No venom-honey bee Allergy Severe Shortness of Air 07/25/15 Yes tree nut Allergy Intermediate [place] WALNUTS 07/25/15 Yes I S O L A T I O N *CONTACT* Allergy Unknown 08/30/15 Yes Physical Exam: PE: Constitutional: Well developed, well nourished, no acute distress, non-toxic appearance. [] HENT: Normocephalic, atraumatic, bilateral external ears normal, nose normal. [] Eyes: PERRLA, conjunctiva normal, no discharge. [] Neck: No rigidity, supple, no stridor. [] Cardiovascular: Regular rate and rhythm, brisk cap refill [] Lungs & Thorax: Non labored symmetric respirations, no tachypnea or respiratory distress [] Abdomen: Soft, nondistended. Skin: Warm, dry, no erythema, no rash. Sutured laceration to right distal murcia, small amount of surrounding erythema without drainage, warmth, streaking. [] Back: Unremarkable Extremities: No deformities, range of motion grossly intact, no lower extremity edema [] Neurologic: Alert and oriented X 3, no focal deficits noted. [] Psychologic: Affect normal, judgement normal, mood normal. [] EKG: EKG: [] Radiology/Procedures: Radiology/Procedures: 11 sutures removed without complication, no purulent drainage or bleeding. [] Heart Score: C/O Chest Pain: No Risk Factors: Risk Factors: DM, Current or recent (<one month) smoker, HTN, HLP, family hist ory of CAD, obesity. Risk Scores: Score 0 - 3: 2.5% MACE over next 6 weeks - Discharge Home Score 4 - 6: 20.3% MACE over next 6 weeks - Admit for Clinical Observation Score 7 - 10: 72.7% MACE over next 6 weeks - Early Invasive Strategies Course & Med Decision Making: Course & Med Decision Making Pertinent Labs and Imaging studies reviewed. (See chart for details) [] Dragon Disclaimer: Dragon Disclaimer: This electronic medical record was generated, in whole or in part, using a voice recognition dictation system. Departure Departure: Referrals: SHARAD PADILLA MD (PCP) THANG SANCHEZ MD Jun 22, 2020 10:07
== END 2020-06-22 10:14 | disposition home or self-care (01) ==
LOC: ER 08:34
DX: S81.811D Laceration without foreign body, right lower leg, subsequent encounter (principal); Z88.1 Allergy status to other antibiotic agents; Z91.041 Radiographic dye allergy status; Z91.030 Bee allergy status; Z91.018 Allergy to other foods; I25.2 Old myocardial infarction; Z86.73 Personal history of transient ischemic attack (TIA), and cerebral infarction without residual deficits; Z86.718 Personal history of other venous thrombosis and embolism; X58.XXXD Exposure to other specified factors, subsequent encounter
CPT/HCPCS: 99281

== ENCOUNTER → 2020-06-26 | Outpatient (CLI) | payer MEDICARE, OTHER ==
[2020-06-22 08:35] VITALS: BP 134/57
[~2020-06-26] MED LIST changes: +CLIN150C15 PO
--- NOTE | 2020-06-26 11:49 | RAD ---
EXAM: Bilateral digital screening mammogram with tomosynthesis. HISTORY: 70-year-old female presents for screening mammography. TECHNIQUE: Full-field digital craniocaudal and mediolateral oblique 2D and 3D tomosynthesis images of both breasts are obtained for evaluation. Computer aided detection was applied. COMPARISON: 06/24/2018 BREAST PARENCHYMAL DENSITY: Level B - Scattered fibroglandular densities. FINDINGS: There is no new suspicious mass, microcalcification or region of architectural distortion. There is stable areas of nodularity and asymmetry within both breasts. There are multiple benign calc ifications. IMPRESSION: BI-RADS Category 2: Benign finding(s). RECOMMENDATION: Annual mammography is recommended. If your mammogram demonstrates that you have dense breast tissue, which could hide abnormalities, and if you have other risk factors for breast cancer that have been identified, you might benefit from s upplemental screening tests that may be suggested by your ordering physician. Dense breast tissue, i n and of itself, is a relatively common condition. This information is not provided to cause undue c oncern, but rather to raise your awareness and to promote discussion with your physician regarding th e presence of other risk factors, in addition to dense breast tissue. A report of your mammography re sults will be sent to you and your physician. You should contact your physician if you have any ques tions or concerns regarding this report. Mammography is a sensitive method for finding small breast cancers, but it does not detect them all a nd is not a substitute for careful clinical examination. A negative mammogram does not negate a clin ically suspicious finding and should not result in delay in biopsying a clinically suspicious abnorma lity. PQRS compliance statement - Patient information was entered into a reminder system with a target due date for the next mammogram. "Our facility is accredited by the [employer] Mammography Program." Electronically signed by: Brittany Collazo MD (06/26/2020 11:47 AM) [id number]
== END ==
LOC: MAMMO 09:32
PROVIDERS: ATTEND Family Medicine
DX: Z12.31 Encounter for screening mammogram for malignant neoplasm of breast (principal)
CPT/HCPCS: 77063; 77067

== ENCOUNTER 2020-06-28 11:07 | Emergency (ER) | payer MEDICARE, OTHER ==
[~2020-06-28] VITALS: Ht 160 cm; Wt 88.6 kg
[~2020-06-28 11:07] MED LIST changes: -CLIN150C15 PO
[2020-06-28 11:36] VITALS: BP 155/87
[2020-06-28] MEDS ORDERED: CLIN150C15 PO (12:02)
--- NOTE | 2020-06-28 12:03 | PHYS DOC ---
Past History Past Medical History: Anxiety, [place], TIA, Other Additional Past Medical Histor: DVT Past Surgical History: Cholecystectomy, Hysterectomy, Tonsillectomy, Other Additional Past Surgical Histo: moiz-en-y. right shoulder replacement Smoking: Non-smoker Alcohol Use: Rarely Drug Use: None General Adult EDM: Chief Complaint: WOUND CHECK HPI: HPI: Patient is a 70-year-old female coming in for possible cellulitis. Patient states that while she was at physical therapy today she had increasing pain. States she had a laceration for 2 weeks ago and had sutures removed 1 week ago in this ED. Wound was slightly inflamed at that time but no signs of infection or purulent drainage. Patient states that since yesterday she has been able to express purulent drainage and had increasing pain. Complaint of chills last night. Does not had a fever. Denies recurrent injury. Review of Systems: Review of Systems: All other systems within normal limits except for as noted in the HPI Allergies: Allergies: Allergies Coded Allergies Type Severity Reaction Last Updated Verified amoxicillin Allergy Severe Anaphylaxis 07/04/18 No venom-honey bee Allergy Severe Shortness of Air 07/25/15 Yes tree nut Allergy Intermediate SETSWANA WALNUTS 07/25/15 Yes I S O L A T I O N *CONTACT* Allergy Unknown 08/30/15 Yes Physical Exam: PE: Constitutional: Well developed, well nourished, no acute distress, non-toxic appearance. [] HENT: Normocephalic, atraumatic, bilateral external ears normal, nose normal. [] Eyes: PERRLA, conjunctiva normal, no discharge. [] Neck: No rigidity, supple, no stridor. [] Cardiovascular: Regular rate and rhythm, brisk cap refill [] Lungs & Thorax: Non labored symmetric respirations, no tachypnea or respiratory distress [] Abdomen: Soft, nondistended. Skin: W erythema and warmth around murcia laceration on right lower leg. No fluctuance, no purulent drainage, no streaking. Mild induration. [] Back: Unremarkable Extremities: No deformities, range of motion grossly intact, no lower extremity edema [] Neurologic: Alert and oriented X 3, no focal deficits noted. [] Psychologic: Affect normal, judgement normal, mood normal. [] Current Patient Data: Vital Signs: Vital Signs Date Time Temp Pulse Resp B/P (MAP) Pulse Ox O2 Delivery O2 Flow Rate FiO2 06/28/20 11:36 98.0 76 16 155/87 (109) 98 Room Air EKG: EKG: [] Radiology/Procedures: Radiology/Procedures: [] Heart Score: C/O Chest Pain: No Risk Factors: Risk Factors: DM, Current or recent (<one month) smoker, HTN, HLP, family history of CAD, obesity. Risk Scores: Score 0 - 3: 2.5% MACE over next 6 weeks - Discharge Home Score 4 - 6: 20.3% MACE over next 6 weeks - Admit for Clinical Observation Score 7 - 10: 72.7% MACE over next 6 weeks - Early Invasive Strategies Course & Med Decision Making: Course & Med Decision Making Pertinent Labs and Imaging studies reviewed. (See chart for details) [] Dragon Disclaimer: Dragon Disclaimer: This electronic medical record was generated, in whole or in part, using a voice recognition dictation system. Departure Departure: Impression: Primary Impression: Cellulitis of right anterior lower leg Disposition: HOME / SELF CARE / HOMELESS Condition: STABLE Referrals: SHARAD PADILLA MD (PCP) Patient Instructions: Cellulitis Scripts Clindamycin Hcl (CLINDAMYCIN HCL) 150 Mg Capsule 3 CAP PO TID for antibiotic for 7 Days, #63 CAP 0 Refills Prov: THANG SANCHEZ MD 06/28/20 THANG SANCHEZ MD Jun 28, 2020 12:03
[2020-06-28] MEDS ORDERED: BACITRACIN ZINC TOPICAL OINT PACKET. TP ONE (12:09)
== END 2020-06-28 12:08 | disposition home or self-care (01) ==
LOC: ER 11:07
DX: L03.115 Cellulitis of right lower limb (principal); F41.9 Anxiety disorder, unspecified; I25.2 Old myocardial infarction; Z86.73 Personal history of transient ischemic attack (TIA), and cerebral infarction without residual deficits; Z86.718 Personal history of other venous thrombosis and embolism; Z88.1 Allergy status to other antibiotic agents; Z91.030 Bee allergy status; Z91.018 Allergy to other foods
CPT/HCPCS: 99283

== ENCOUNTER 2020-10-20 18:27 | Emergency (ER) | payer MEDICARE, OTHER ==
[~2020-10-20] VITALS: Ht 160 cm; Wt 68.2 kg
[~2020-10-20 18:27] MED LIST changes: +CLIN150C16 PO; -LISI2.5T PO; +LISI2.5T12 PO
--- NOTE | 2020-10-20 19:16 | PHYS DOC ---
Past History Past Medical History: Anxiety, [place], TIA, Other Additional Past Medical Histor: DVT Past Surgical History: Cholecystectomy, Hysterectomy, Tonsillectomy, Other Additional Past Surgical Histo: moiz-en-y. right shoulder replacement Smoking: Non-smoker Alcohol Use: Rarely Drug Use: None General Adult EDM: Chief Complaint: SYNCOPE HPI: HPI: "..I was getting up to go to bathroom..and I got a coughing spell.. and I got dizzy.. and maybe blacked out or almost blacked out" ". I feel fine now.." Patient is a 70 year old female who presents with above hx of cough syncope. Patient states episode occurred after a coughing episode. Patient denies any production of sputum. Has had a recent upper airway congestion and drainage.. Patient denies any chest pain currently. Patient denies any dyspnea currently. She does have a history of multiple medical issues including diabetes, COPD, hypertension, asthma, anemia, bronchitis, COPD, degenerative joint disease, diabetes, anxiety, slurred speech/TIAs, and prior episodes of syncope. Patient is also had right shoulder replacement cholecystectomy, hysterectomy and tonsillectomy. Patient has follow-up with Dr. Caal, cardiology and primary is Dr. Flaherty. Patient currently is on her Eliquis 5 mg twice daily Review of Systems: Review of Systems: Constitutional: Denies fever or chills Eyes: Denies change in visual acuity HENT: Denies nasal congestion or sore throat Respiratory: Denies cough or shortness of breath Cardiovascular: Denies chest pain or edema GI: Denies abdominal pain, nausea, vomiting, bloody stools or diarrhea : Denies dysuria Musculoskeletal: Denies back pain or joint pain Integument: Denies rash Neurologic: Denies headache, focal weakness or sensory changes Endocrine: Denies polyuria or polydipsia Lymphatic: Denies swollen glands Psychiatric: Denies depression or anxiety Family History: Family History: Noncontributory to presentation Current Medications: Current Meds: See nursing for home meds Allergies: Allergies: Allergies Coded Allergies Type Severity Reaction Last Updated Verified amoxicillin Allergy Severe Anaphylaxis 07/04/18 No venom-honey bee Allergy Severe Shortness of Air 07/25/15 Yes tree nut Allergy Intermediate AZERI WALNUTS 07/25/15 Yes I S O L A T I O N *CONTACT* Allergy Unknown 08/30/15 Yes Physical Exam: PE: Constitutional: no acute distress, non-toxic appearance. [] HENT: Normocephalic, atraumatic, bilateral external ears normal, oropharynx moist, no oral exudates, nose normal. [] Eyes: PERRLA, EOMI, conjunctiva normal, no discharge. [] Neck: Normal range of motion, no tenderness, supple, no stridor. [] Cardiovascular: Bradycardia heart rate regular rhythm, no murmur [] Lungs & Thorax: Bilateral breath sounds equal apex with scattered wheezes auscultation [] Abdomen: Bowel sounds normal, soft, no tenderness, no masses, no pulsatile masses. Old scars. Obese. Skin: Warm, dry, no erythema, no rash. Poor turgor Back: No tenderness, no CVA tenderness. [] Extremities: No tenderness, no cyanosis, no clubbing, ROM intact, ankle edema. No cording Neurologic: Alert and oriented X 3, moves all extremities on request, does have distal sensory,, no focal deficits noted. DTRs +2. Manager Latin equal. No drift. Psychologic: Affect anxious, judgement normal, mood normal. [] EKG: EKG: My interpretation EKG shows a sinus bradycardia at 50 bpm. Leftward axis. Some anterior septal changes but no findings of acute STEMI of contralateral changes time of EKG is at 1850 hrs. My interpretation of second EKG shows a sinus bradycardia 53 bpm leftward axis. No acute interval change from prior EKG. Time of this EKG is 2147 hrs. [] Radiology/Procedures: Radiology/Procedures: [address] [id number] IMAGING REPORT Signed PATIENT: HIREN LOUIS ACCOUNT: [id number] : 1950 LOCATION: ER AGE: 70 SEX: F EXAM STATUS: REG ER ORD. PHYSICIAN: MIKIE SIFUENTES MD REASON: syncope, COPD, ? COVID PROCEDURE: PORTABLE CHEST 1V XR CHEST 1V Clinical History: Reason: syncope, COPD, ? COVID / Spl. Instructions: / History: Technique: AP view of the chest was obtained at 10/20/2020 7:50 PM. Comparison: April 13, 2020. Findings: The cardiomediastinal silhouette is normal. The pulmonary vasculature is normal. There is hazy opacity in the lower right lung. There is prior right shoulder total reverse arthroplasty. Impression: Mild right-sided infiltrate could be early pneumonia. Recommend follow-up chest x-ray to complete resolution. Electronically signed by: Fanny Espinal III, MD (10/20/2020 8:59 PM) [facility] DICTATED AND SIGNED BY: FANNY ESPINAL III, MD DATE: 10/20/202056 CC: MIKIE SIFUENTES MD; SHARAD FLAHERTY MD ~MTH0 0 [][place] [address] IMAGING REPORT Signed PATIENT: HIREN LOUIS ACCOUNT: [id number] : 1950 LOCATION: ER AGE: 70 SEX: F EXAM STATUS: REG ER ORD. PHYSICIAN: MIKIE SIFUENTES MD REASON: syncope, altered PROCEDURE: CT HEAD WO CONTRAST CT Head W/O Contrast: History: Reason: syncope, altered / Spl. Instructions: / History: Comparison: April 13, 2020 Axial images were obtained without contrast. There is moderate diffuse atrophy. There is no mass effect, extraaxial fluid collections or hydrocephalus. There is no focal loss of gaspar-white matter distinction to suggest acute ischemia, i.e. stroke. There is moderate mucoperiosteal thickening of the inferior left maxillary sinus. Impression: New left maxillary sinus disease. No acute intracranial findings. End impression PQRS Compliance Statement: One or more of the following individualized dose reduction techniques were utilized for this examination: 1. Automated exposure control 2. Adjustment of the mA and/or kV according to patient size 3. Use of iterative reconstruction technique Electronically signed by: Fanny Espinal III, MD (10/20/2020 8:32 PM) [facility] DICTATED AND SIGNED BY: FANNY ESPINAL III, MD DATE: 10/20/202027 CC: MIKIE SIFUENTES MD; SHARAD FLAHERTY MD ~MTH0 0 Heart Score: C/O Chest Pain: No HEART Score for Chest Pain: HEART Score for Chest Pain Response (Comments) Value History Moderately Suspicious 1 ECG Nonspecific Repolarizatio 1 Age > 65 2 Risk Factors 1 or 2 Risk Factors 1 Troponin >1-<3x Normal Limit 1 Total 6 Risk Factors: Risk Factors: DM, Current or recent (<one month) smoker, HTN, HLP, family history of CAD, obesity. Risk Scores: Score 0 - 3: 2.5% MACE over next 6 weeks - Discharge Home Score 4 - 6: 20.3% MACE over next 6 weeks - Admit for Clinical Observation Score 7 - 10: 72.7% MACE over next 6 weeks - Early Invasive Strategies Course & Med Decision Making: Course & Med Decision Making Pertinent Labs and Imaging studies reviewed. (See chart for details) Patient was started in the emergency room for 2 hours which time patient started requesting to be discharged. Discussed risk of discharge patient exhibits UCAR capacity Patient to follow up and take meds as previous directed. Reviewed labs with patient before she left. Encouraged to return at any time if she wished to complete options patient. Or be admitted for observation tonight. Patient to follow-up with her primary care. Patient follow-up with neurologist. Patient follow-up with cardiology. Impression: 1. Cough syncope 2. Mild elevation glucose 173 3. Anemia hemoglobin 9.4 [id number] 4. Elevated D-dimer 1.16 (patient states she is taking her Eliquis) 5. History of COPD [] Dragon Disclaimer: Nataly Disclaimer: This electronic medical record was generated, in whole or in part, using a voice recognition dictation system. Departure Departure: Referrals: SHARAD FLAHERTY MD (PCP) Nataly Disclaimer This chart was dictated in whole or in part using Voice Recognition software in a busy, high-work load, and often noisy Emergency Department environment. It may contain unintended and wholly unrecognized errors or omissions. MIKIE SIFUENTES MD Oct 20, 2020 19:16
[2020-10-20] MEDS ORDERED: IV RINGERS SOLUTION,LACTATED 1,000 ML IV SCH (19:30)
[2020-10-20 20:05] LABS: CALCIUM 7.9 mg/dL (8.5-10.1); CREATININE 0.7 mg/dL (0.6-1.0); GFR 82.3; POTASSIUM 3.8 mmol/L (3.5-5.1)
[2020-10-20 20:10] LABS: BASO % 0 % (0-3); EOS % 0 % (0-3); HEMATOCRIT 30.3 % (36.0-47.0); HEMOGLOBIN 9.4 g/dL (12.0-15.5); LYMPH # 0.6 x10^3/uL (1.0-4.8); LYMPH % 9 % (24-48); MEAN CORPUSCULAR HEMOGLOBIN 23 pg (25-35); MEAN CORPUSCULAR HGB CONC 31 g/dL (31-37); MEAN CORPUSCULAR VOLUME 74 fL (79-100); MONO # 0.3 x10^3/uL (0.0-1.1); MONO % 5 % (0-9); NEUT # 5.5 x10^3uL (1.8-7.7); NEUT % 86 % (31-73); PLATELET COUNT 199 x10^3/uL (140-400); RED BLOOD COUNT 4.07 x10^6/uL (3.50-5.40); RED CELL DISTRIBUTION WIDTH 17.8 % (11.5-14.5); WHITE BLOOD COUNT 6.4 x10^3/uL (4.0-11.0)
[2020-10-20 20:17] LABS: ALBUMIN 2.8 g/dL (3.4-5.0); DIRECT BILIRUBIN 0.2 mg/dL (0.0-0.2); MAGNESIUM 1.9 mg/dL (1.8-2.4); TOTAL BILIRUBIN 0.5 mg/dL (0.2-1.0); TOTAL PROTEIN 6.3 g/dL (6.4-8.2)
--- NOTE | 2020-10-20 20:35 | RAD ---
CT Head W/O Contrast: History: Reason: syncope, altered / Spl. Instructions: / History: Comparison: April 13, 2020 Axial images were obtained without contrast. There is moderate diffuse atrophy. There is no mass effect, extraaxial fluid collections or hydrocep halus. There is no focal loss of gaspar-white matter distinction to suggest acute ischemia, i.e. stroke. There is moderate mucoperiosteal thickening of the inferior left maxillary sinus. Impression: New left maxillary sinus disease. No acute intracranial findings. End impression PQRS Compliance Statement: One or more of the following individualized dose reduction techniques were utilized for this examinat ion: 1. Automated exposure control 2. Adjustment of the mA and/or kV according to patient size 3. Use of iterative reconstruction technique Electronically signed by: Wallace Teran III, MD (10/20/2020 8:32 PM) [facility]
--- NOTE | 2020-10-20 21:02 | RAD ---
XR CHEST 1V Clinical History: Reason: syncope, COPD, ? COVID / Spl. Instructions: / History: Technique: AP view of the chest was obtained at 10/20/2020 7:50 PM. Comparison: April 13, 2020. Findings: The cardiomediastinal silhouette is normal. The pulmonary vasculature is normal. There is hazy opacit y in the lower right lung. There is prior right shoulder total reverse arthroplasty. Impression: Mild right-sided infiltrate could be early pneumonia. Recommend follow-up chest x-ray to complete res olution. Electronically signed by: Wallace Teran III, MD (10/20/2020 8:59 PM) [facility]ASON
[2020-10-20 23:29] LABS: BACTERIA,URINE 0 /HPF (0-FEW); BILIRUBIN,URINE SMALL (NEG); CLARITY,URINE CLEAR; COLOR,URINE YELLOW; GLUCOSE,URINE NEG (NEG); NITRITE,URINE NEG (NEG); RBC,URINE 0 /HPF (0-2); SQUAMOUS EPITHELIAL CELL,UR MOD /LPF; UROBILINOGEN,URINE 0.2 mg/dL (0.2 mg/dL); WBC,URINE OCC /HPF (0-4)
[2020-10-20 23:36] LABS: BARBITURATES NEG (NEG); BENZODIAZEPINES NEG (NEG); CANNABINOIDS NEG (NEG); COCAINE NEG (NEG); METHADONE NEG (NEG); OPIATES POS (NEG); PHENCYCLIDINE NEG (NEG)
[2020-10-20 23:37] LABS: AMPHETAMINE/METHAMPHETAMINE NEG (NEG)
[2020-10-21] MEDS ORDERED: CONTRAST GIVEN. MC PRN (01:45)
[2020-10-21] MEDS ORDERED: IOHEXOL 350 MG/ML 100 ML VIAL. IV ONE (02:00)
[2020-10-21 02:09] VITALS: BP 150/87
--- NOTE | 2020-10-21 03:28 | EKG ---
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
--- NOTE | 2020-10-21 03:29 | EKG ---
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
== END 2020-10-21 02:15 | disposition home or self-care (01) ==
LOC: ER 18:27
DX: U07.1 COVID-19 (principal); R55 Syncope and collapse; D50.9 Iron deficiency anemia, unspecified; R79.1 Abnormal coagulation profile; J44.9 Chronic obstructive pulmonary disease, unspecified; R73.02 Impaired glucose tolerance (oral); I25.2 Old myocardial infarction; Z86.73 Personal history of transient ischemic attack (TIA), and cerebral infarction without residual deficits; Z88.1 Allergy status to other antibiotic agents; Z91.030 Bee allergy status; Z91.018 Allergy to other foods
CPT/HCPCS: 36415; 70450; 71045; 80048; 80076; 80307; 81001; 82550; 83690; 83735; 83880; 84443; 84484; 85025; 85379; 85610; 93005; 96360; 96361; 99285; C9803; J7120; U0003

== ENCOUNTER 2021-02-05 18:45 | Emergency (ER) | payer MEDICARE, OTHER ==
[~2021-02-05] VITALS: Ht 160 cm; Wt 95.7 kg
[~2021-02-05 18:45] MED LIST changes: +CLIN-95 PO; -CLIN300C9 PO; -CYCL-331 PO; +CYCL10TA19 PO; -LISI-517 PO; +LISI5TAB15 PO; +MORP-62 PO; -MORP15TA PO
--- NOTE | 2021-02-05 19:11 | PHYS DOC ---
Past History Past Medical History: Anxiety, [place], TIA, Other Additional Past Medical Histor: DVT Past Surgical History: Cholecystectomy, Hysterectomy, Tonsillectomy, Other Additional Past Surgical Histo: moiz-en-y. right shoulder replacement Smoking: Non-smoker Alcohol Use: None Drug Use: None General Adult EDM: Chief Complaint: MECHANICAL FALL HPI: HPI: 70-year-old female presents after mechanical fall. The patient actually fell several days ago. She was walking along her gravel driveway and tripped over a tent stakes and fell down onto the gravel. She was evaluated by her primary care physician. Plain x-rays were ordered of her neck, ribs, right arm. No fractures were seen. A CT of her head was not performed due to unavailability of the machine. The patient spoke with her doctor again today and she has been feeling "brain fog" and having some dizziness. She states being well-hydrated and is just concerned she could have damage in her head from the fall. She is on Eliquis. Her physician recommended she come the emergency room for a head CT just in case. Review of Systems: Review of Systems: Constitutional: Denies fever or chills Eyes: Denies change in visual acuity HENT: Denies nasal congestion or sore throat Respiratory: Denies cough or shortness of breath Cardiovascular: Denies chest pain or edema GI: Denies abdominal pain, nausea, vomiting, bloody stools or diarrhea : Denies dysuria Musculoskeletal: Denies back pain or joint pain Integument: Denies rash Neurologic: Headache, dizziness. Denies focal weakness or sensory changes Endocrine: Denies polyuria or polydipsia Lymphatic: Denies swollen glands Psychiatric: Denies depression or anxiety Allergies: Allergies: Allergies Coded Allergies Type Severity Reaction Last Updated Verified amoxicillin Allergy Severe Anaphylaxis 07/04/18 No venom-honey bee Allergy Severe Shortness of Air 07/25/15 Yes tree nut Allergy Intermediate ALGERIAN WALNUTS 07/25/15 Yes I S O L A T I O N *CONTACT* Allergy Unknown 08/30/15 Yes Physical Exam: PE: Constitutional: Well developed, well nourished, morbidly obese, no acute dis tress, non-toxic appearance. [] HENT: Normocephalic, small ecchymosis right eyebrow, bilateral external ears normal, oropharynx moist, no oral exudates, nose normal. [] Eyes: PERRLA, EOMI, conjunctiva normal, no discharge. [] Neck: Normal range of motion, no tenderness, supple, no stridor. [] Cardiovascular: Heart rate regular rhythm, no murmur [] Lungs & Thorax: Bilateral breath sounds clear to auscultation [] Abdomen: Bowel sounds normal, soft, no tenderness, no masses, no pulsatile masses. [] Skin: Warm, dry, no erythema, no rash. [] Back: No tenderness, no CVA tenderness. [] Extremities: No tenderness, no cyanosis, no clubbing, ROM intact, no edema. [] Neurologic: Alert and oriented X 3, normal motor function, normal sensory function, no focal deficits noted. [] Psychologic: Affect normal, judgement normal, mood normal. [] EKG: EKG: [] Radiology/Procedures: Radiology/Procedures: [] Impressions: CT HEAD/BRAIN WO Date: 02/05/2021 7:09 PM Clinical Indication: fall, hit forehead, pain Comparison: None. Technique: 5 mm axial tomographic images were obtained of the head without contrast. These were viewed on brain and bone windows. One or more of the following dose reduction techniques were utilized: Automated exposure control (AEC), Adjustment of mA and/or kV according to patient size, Use of iterative reconstruction technique such as ASiR, CT scan done according to ALARA and image gently/image wisely Findings: The brain parenchyma is normal in attenuation. No intra- or extra-axial mass or fluid collection. No acute hemorrhage. The ventricles are normal in size, shape, and morphology. The gaspar-white matter junction is normal. The subarachnoid cisterns are patent. The visualized paranasal sinuses are normal. The visualized portions of the orbits and globes are normal. The mastoid air cells are clear. The english teacher topogram shows no lytic lesion or fracture. Impression: No acute intracranial process. Electronically signed by: Ron Turner MD (02/05/2021 7:46 PM) [facility] DICTATED AND SIGNED BY: RON TURNER MD DATE: 02/05/211942 CC: MARY JANE GARCÍA DO; SHARAD PADILLA MD ~MTH0 0 Heart Score: C/O Chest Pain: N/A Risk Factors: Risk Factors: DM, Current or recent (<one month) smoker, HTN, HLP, family history of CAD, obesity. Risk Scores: Score 0 - 3: 2.5% MACE over next 6 weeks - Discharge Home Score 4 - 6: 20.3% MACE over next 6 weeks - Admit for Clinical Observation Score 7 - 10: 72.7% MACE over next 6 weeks - Early Invasive Strategies Course & Med Decision Making: Course & Med Decision Making Pertinent Labs and Imaging studies reviewed. (See chart for details) The patient's head CT is negative for acute findings. She is very reassured by these results. I believe she may have a mild concussion from her fall. This would explain her brain fog and slight difficulty with coordination. She is stable for discharge at this time. [] Dragon Disclaimer: Dragon Disclaimer: This electronic medical record was generated, in whole or in part, using a voice recognition dictation system. Departure Departure: Impression: Primary Impression: Mild concussion Disposition: HOME / SELF CARE / HOMELESS Condition: STABLE Referrals: SHARAD PADILLA MD (PCP) Patient Instructions: Concussion and Brain Injury, [id number] MARY JANE GARCÍA DO Feb 05, 2021 19:11
--- NOTE | 2021-02-05 19:49 | RAD ---
CT HEAD/BRAIN WO Date: 02/05/2021 7:09 PM Clinical Indication: fall, hit forehead, pain Comparison: None. Technique: 5 mm axial tomographic images were obtained of the head without contrast. These were view ed on brain and bone windows. One or more of the following dose reduction techniques were utilized: A utomated exposure control (AEC), Adjustment of mA and/or kV according to patient size, Use of iterati ve reconstruction technique such as ASiR, CT scan done according to ALARA and image gently/image peña ly Findings: The brain parenchyma is normal in attenuation. No intra- or extra-axial mass or fluid collection. No acute hemorrhage. The ventricles are normal in size, shape, and morphology. The gaspar-white matter basia ction is normal. The subarachnoid cisterns are patent. The visualized paranasal sinuses are normal. The visualized portions of the orbits and globes are no rmal. The mastoid air cells are clear. The car driver topogram shows no lytic lesion or fracture. Impression: No acute intracranial process. Electronically signed by: Phillip Turner MD (02/05/2021 7:46 PM) [facility]
[2021-02-05 20:17] VITALS: BP 136/59
== END 2021-02-05 20:24 | disposition home or self-care (01) ==
LOC: ER 18:45
DX: S06.0X0A Concussion without loss of consciousness, initial encounter (principal); S00.11XA Contusion of right eyelid and periocular area, initial encounter; F41.9 Anxiety disorder, unspecified; I25.2 Old myocardial infarction; Z86.73 Personal history of transient ischemic attack (TIA), and cerebral infarction without residual deficits; Z86.718 Personal history of other venous thrombosis and embolism; Z88.1 Allergy status to other antibiotic agents; Z91.030 Bee allergy status; Z91.018 Allergy to other foods; W18.09XA Striking against other object with subsequent fall, initial encounter; Y93.01 Activity, walking, marching and hiking; Y92.89 Other specified places as the place of occurrence of the external cause; Y99.8 Other external cause status
CPT/HCPCS: 70450; 99284-25

== ENCOUNTER → 2021-04-14 | Outpatient (CLI) | payer MEDICARE, OTHER ==
[~2021-04-14] MED LIST changes: -LURA40TA PO; +LURA40TA2 PO; -LURA80TA PO; +LURA80TA2 PO
[2021-04-14 07:53] LABS: BASO # 0.1 x10^3/uL (0.0-0.2); BASO % 2 % (0-3); EOS # 0.1 x10^3/uL (0.0-0.7); EOS % 2 % (0-3); HEMATOCRIT 34.2 % (36.0-47.0); HEMOGLOBIN 10.6 g/dL (12.0-15.5); LYMPH # 1.3 x10^3/uL (1.0-4.8); LYMPH % 37 % (24-48); MEAN CORPUSCULAR HEMOGLOBIN 25 pg (25-35); MEAN CORPUSCULAR HGB CONC 31 g/dL (31-37); MEAN CORPUSCULAR VOLUME 80 fL (79-100); MONO # 0.4 x10^3/uL (0.0-1.1); MONO % 11 % (0-9); NEUT # 1.7 x10^3uL (1.8-7.7); NEUT % 49 % (31-73); PLATELET COUNT 280 x10^3/uL (140-400); RED BLOOD COUNT 4.26 x10^6/uL (3.50-5.40); RED CELL DISTRIBUTION WIDTH 17.4 % (11.5-14.5); WHITE BLOOD COUNT 3.4 x10^3/uL (4.0-11.0)
[2021-04-14 08:05] LABS: ALBUMIN 3.2 g/dL (3.4-5.0); CALCIUM 8.3 mg/dL (8.5-10.1); CREATININE 0.8 mg/dL (0.6-1.0); GFR 70.3; POTASSIUM 4.2 mmol/L (3.5-5.1); TOTAL BILIRUBIN 0.4 mg/dL (0.2-1.0); TOTAL PROTEIN 6.4 g/dL (6.4-8.2)
[2021-04-14 10:07] LABS: CHOLESTEROL/HDL RATIO 2.7
[2021-04-15 03:06] LABS: HEMOGLOBIN A1C 6.7 % (4.8-5.6)
== END ==
LOC: LAB 06:42
PROVIDERS: ATTEND Nurse Practitioner
DX: E11.8 Type 2 diabetes mellitus with unspecified complications (principal); E78.5 Hyperlipidemia, unspecified; Z86.711 Personal history of pulmonary embolism
CPT/HCPCS: 36415; 80053; 80061; 83036; 85025

== ENCOUNTER → 2021-08-02 | Outpatient (CLI) | payer MEDICARE, OTHER ==
--- NOTE | 2021-08-02 16:25 | RAD ---
Bilateral digital screening 2-D and 3-D (digital breast tomosynthesis) mammogram: Reason for examination: Routine screening. Comparison: Mammograms from the 06/26/2020, 06/24/2018. Interpretation was made with the benefit of CAD. FINDINGS: Breast density: Category A. Breast tissue is almost entirely fatty. No new suspicious breast mass, malignant appearing calcifications, or architectural distortion is see n. There are small oval circumscribed masses in both breasts which are stable. IMPRESSION: No evidence of malignancy. Assessment: There is 2. Benign findings. Recommendation: Routine screening mammograms. The patient will receive a letter with the results in the mail. Patient information will be entered i nto the mammography reminder system with a target recall date for the next mammogram. A reminder german er will be generated. Electronically signed by: Jocelin Sierra MD (08/02/2021 4:23 PM) [id number]
== END ==
LOC: MAMMO 14:14
PROVIDERS: ATTEND Family Medicine
DX: Z12.31 Encounter for screening mammogram for malignant neoplasm of breast (principal)
CPT/HCPCS: 77063; 77067